=== PATIENT | female | born 1960 | race Caucasian/White ===

== ENCOUNTER → 2019-05-26 07:01 | Outpatient (CLI) | payer OTHER, SELFPAY ==
--- NOTE | ~2019-05-26 | MM_ITS ---
EXAMINATION: MM screening denice BI w karol HISTORY: Screening mammogram TECHNIQUE: Craniocaudal and mediolateral oblique 3-D tomosynthesis images were obtained and synthetic 2-D images were generated. CAD analysis was submitted and interpreted. COMPARISON: No prior mammogram is available for comparison at this institution. BREAST PARENCHYMAL COMPOSITION: The breasts are heterogeneously dense, which may obscure small masses . FINDINGS: Scattered benign calcifications. There is no evidence of suspicious mass, calcification, or architectural distortion to suggest malignancy in either breast. There has been no suspicious interv al change. IMPRESSION: 1. No mammographic evidence of malignancy. 2. Recommend routine screening mammography in one year. BI-RADS Category 2: Benign finding(s). Reviewed, dictated and finalized at location A. ASS OPERATOR
== END ==
PROVIDERS: PCP Physician Assistant; Visit Provider Physician Assistant
DX: Z12.31 Encounter for screening mammogram for malignant neoplasm of breast (principal)
CPT/HCPCS: 77063; 77067

== ENCOUNTER 2023-09-13 13:33 | Outpatient (CLI) | payer OTHER, SELFPAY ==
--- NOTE | ~2023-09-13 | MM_ITS ---
EXAMINATION: MM screening denice BI w karol HISTORY: Screening TECHNIQUE: Craniocaudal and mediolateral oblique 3-D tomosynthesis images were obtained and synthetic 2-D images were generated. CAD analysis was submitted and interpreted. COMPARISON: 05/26/2019 BREAST PARENCHYMAL COMPOSITION: Dense: The breasts are heterogeneously dense, which may obscure small masses FINDINGS: There is no evidence of suspicious mass, calcification, or architectural distortion to sugg est malignancy in either breast. There has been no suspicious interval change. IMPRESSION: 1. No mammographic evidence of malignancy. 2. Recommend routine screening mammography in one year. BI-RADS Category 1: Negative Reviewed, dictated and finalized at location B.
== END 2023-09-13 13:34 ==
LOC: MICIMG 13:37
PROVIDERS: PCP Physician Assistant; Visit Provider Physician Assistant
DX: Z12.31 Encounter for screening mammogram for malignant neoplasm of breast (principal)
CPT/HCPCS: 77063; 77067

== ENCOUNTER 2024-06-20 14:48 | Outpatient (CLI) | payer OTHER, SELFPAY ==
--- NOTE | ~2024-06-20 | MM_ITS ---
EXAMINATION: MM screening [facility] BI w karol HISTORY: Screening TECHNIQUE: Craniocaudal and mediolateral oblique 3-D tomosynthesis images were obtained and synthetic 2-D images were generated. CAD analysis was submitted and interpreted. COMPARISON: 09/13/2023 and 05/26/2019 BREAST PARENCHYMAL COMPOSITION: The breasts are heterogeneously dense, which may obscure small masses . FINDINGS: Punctate and bulky calcifications are detected bilaterally, stable and benign in appearance . Stable parenchymal pattern without suspicious microcalcifications, architectural distortion, discrete masses or significant asymmetry. IMPRESSION: 1. No mammographic evidence of malignancy. 2. Recommend routine screening mammography in one year. BI-RADS Category 2: Benign finding(s). Reviewed, dictated and finalized at location A.
--- OUTSIDE RECORDS SUMMARY | 2024-06-20 14:53 | XMS_ITS | Encounter Summary ---
Author Organization [facility] Healthcare Address [address] [place] [address] Care Team Providers Care Business Objects Consultant Name Role Phone Talia Ball Primary Care Provider [phone] Bree Ballesteros NP Unavailable [phone] Fiona Brandon MD Unavailable [phone] Reason for Visit * Reason Onset Date Comments Medical Question/Miscellaneous 06/12/2024 Encounter Details Date Type Department Care Team (Late st Contact Info) Description 06/12/2024 Telephone [facility] Family Medicine [address] [place] [address] Talia Ball PA [address] [place] [address] Medical Question/Miscellaneous Social History Tobacco Use Types Packs/Day Years Used Date Smoking Tobacco: Former Cigarettes 1 24.9 1 975 - 02/23/1999 Smokeless Tobacco: Never Alcohol Use Standard Drinks/Week Comments No 0 (1 standard drink = 0.6 oz pur e alcohol) AUDIT-C Answer Date Recorded Q1: How often do you have a drink containing alcohol? Never 06/16/2024 Q2: How many drinks containi ng alcohol do you have on a typical day when you are drinking? Patient does not drink Q3: How often do you have si x or more drinks on one occasion? Never 06/16/2024 PHQ-2 Answer Date Recorded PHQ-2 Total Score (If total score is 3 or more points, staff should administer the PHQ-9) 0 06/16/2024 PHQ-9 Answer Date Recorded PHQ-9 Total Score 8 09/26/2023 Personal Safety Answer Date Recorded Have you ever been in or are you currently in a harmful physical or emotional relationship or is someone making you feel afraid or unsafe? 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 AC was able to confirm, AC also informed the patient they can use any of our [facility] facilities to get those completed Does message need to be routed? No documented in this encounter Plan of Treatment Not on file documented as of this encounter Visit Diagnoses Not on filedocumented in this encounter Additional Health Concerns Infection Onset Date Last Indicated Resolved Time COVID: Recovered Comment:Added based on recent COVID infection. 03/17/2024 03/17/2024 06/15/2024 3:05 AM C DT documented as of this encounter Care Teams Business Objects Consultant Relationship Specialty Start Date End Date Talia Ball PA [address] [place] [address] PCP - General Internal Medicine 07/29/18 [place] [id number] [address] Nurse Practitioner Strawberry Grower 03/06/24 Fiona Brandon MD [address] [place] [id number] Referring Physician Interventional Cardiology 04/01/24 documented as of this encounter
--- OUTSIDE RECORDS SUMMARY | 2024-06-20 14:53 | XMS_ITS | Clinical Summary ---
Author Organization [facility] Address [address] [place] [address] [place] [address] Phone Care Team Providers Care User Experience Researcher Name Role Phone Katharine Mcnair MD Primary Care Provider [phone] Allergies Active Allergy Reactions Criticality Noted Date Comments Penicillins Hives 02/15/2015 Medications INSULIN GLARGINE,HUM.REC .ANLOG (LANTUS SUBCUT) Inject by subcutaneous injection. Active INSULIN LISPRO (HUMALOG SUBCUT) Inject by subcutaneous injection. Active CITALOPRAM HYDROBROMIDE (CELEXA ORAL) Take by mouth. A ctive METFORMIN HCL (METFORMIN ORAL) Take by mouth. Active LISINOPRIL ORAL Take by mouth. Active Active Problems No known active problems Social History Tobacco Use Types Packs/Day Years Used Date Smoking Tobacco: Former Alcohol Use Standard Drinks/Week Comments No 0 (1 standard drink = 0.6 oz pur e alcohol) Comments No Sex and Gender Information Value Date Recorded Sex Assigned at Not on file Legal Sex Female 4:58 AM MARKET DEVELOPMENT MANAGER Gender Identity Not on file Sexual Orientation Not on file Last Filed Vital Signs Vital Sign Reading Time Taken Comments Blood Pressure 133/79 02/15/2015 3:24 PM MARKET DEVELOPMENT MANAGER Pulse 100 02/15/2015 3:24 PM MARKET DEVELOPMENT MANAGER Temperature 36.5 C (97.7 F) 02/15/2015 3:24 PM MARKET DEVELOPMENT MANAGER Respiratory Rate 18 02/15/2015 3:24 PM MARKET DEVELOPMENT MANAGER Oxygen Saturation 97% 02/15/2015 3:24 PM MARKET DEVELOPMENT MANAGER Inhaled Oxygen Concentration - - Weight 99.8 kg (220 lb) 02/15/2015 3:24 PM MARKET DEVELOPMENT MANAGER Height 170.2 cm (5' 7 ) 02/15/2015 3:24 PM MARKET DEVELOPMENT MANAGER Body Mass Index 34.46 02/15/2015 3:24 PM MARKET DEVELOPMENT MANAGER Plan of Treatment Health Maintenance Due Date Last Done Comments DTAP/TDAP/TD VACCINES (1 - Tdap) 1980 HPV/Cotest (21-29) 1982 CERVICAL CANCER SCREENING 1991 HPV/Cotest (30-65) 1991 PAP SMEAR 1991 BREAST CANCER SCREENING 2001 COLORECTAL SCREENING 2006 Colorectal Cancer Screening 2006 FIT-DNA Q 3 years 2006 FIT/FOBT Q 1 year 2006 Flex Sig/CT Colonography Q 5 years 2006 ZOSTER VACCINE (1 of 2) 2011 INFLUENZA VACCINE (#1) 2023 RSV VACCINE (60+ or ) (1 - 1-dose 75+ series) 2036 Insurance INDIVIDUAL EXCHANGE [id number] Care Teams User Experience Researcher Relationship Specialty Start Date End Date Katharine Mcnair MD PCP - General Pediatrics 02/11/16
--- OUTSIDE RECORDS SUMMARY | 2024-06-20 14:53 | XMS_ITS | Data Portability ---
Author Organization [facility] Address [address] [place] [address] Assessment Encounter Date Assessment Date Assessment LastModified by Organization Details LastModified Time 09/05/2023 09/05/2023 labs preformed o n 08/21/2023, eGFR 72, sodium 144, potassium 4.6, chloride 109, CO2 24, anion gap 11, BUN 19, creatinine 0.90, glucose 237, calcium 9.9, bilirubin 0.3, protein 7.1, albumin 4.2, alk phos 57, ALT 17, AST 15, WBC 6.2, HGB 12.5, PLT 161 ECG done on 08/13/2023 shows normal sinus rhythm rate of 69 beats per minute, septal Q-waves, compared to an EKG done on 06/12/2022 there was no significant change. Assessment/Plan Preoperative cardiac evaluation prior to excision of three teeth on the left side of her jaw with sedation. Since it is going to be with sedation and no general anesthesia there is no cardiac contraindication to the procedure I just asked her to hold her Plavix 5 days prior to the procedure however every day that she is off of Plavix I told her she needs to take an aspirin 81 mg daily and then once she has back on the Plavix she can discontinue the aspirin. Coronary artery disease with chest pain and positive stress test prompting Cardiac catheterization and PCI of a 90% mid LAD lesion on 07/30/2020. Only other disease she has is a 50% mid to distal LAD stenosis. She has a left dominant coronary system with no other significant angiographic stenosis with repeat cardiac catheterization done on 06/13/2021 showing a widely patent stent and just to 40% lesion in the mid LAD with fit artery is fairly small and just mild plaque noted in the proximal portion of a moderate-sized 1st obtuse marginal branch, stable, asymptomatic. Hypertension - controlled Diastolic dysfunction grade 3 Pure hypercholesterolemia - on rosuvastatin 40 mg with LDL well within goal History of diabetes mellitus, managed by her primary care provider her PA Venuscarogloria Anxiety disorder/panic attacks History of alcoholism, Sober since March of 1984 Obstructive sleep apnea - difficulty with tolerating the CPAP, managed by Dr. Lozada Plan-I recommend healthy diet/diabetic which low in fat, low in cholesterol low in sodium and she is to follow a diabetic diet. She has no cardiac contraindication to the extraction of her teeth with sedation should just hold her Plavix 5 days prior to the procedure and every day she is off Plavix she will take 81 mg of aspirin and when she is back on Plavix she can discontinue the aspirin. I asked her to try to hemoglobin A1c under 7 and I agree with seeing an desulfurizer hand to try to help achieve that goal. I would like her to stay as active as possible try to exercise regularly and try to lose some weight. I recommend she continue Plavix 75 mg daily, lisinopril 20 mg daily, magnesium oxide 800 mg daily, rosuvastatin 40 mg daily, and nitroglycerin 0.4 mg sublingual p.r.n. which she has not required. She did have CBC and a complete metabolic profile late last month so I just order a fasting lipid profile if it looks to be at goal then we will continue her current medical regimen and have her return in 6 months time and obtain a fasting lipid profile, complete metabolic profile and CBC prior to her follow-up visit. I asked her to return sooner if she has any cardiac issues or problems. CARDIAC TESTING: ECHOCARDIOGRAM She did undergo an echocardiogram done on 06/13/2021 which showed normal left ventricular systolic function with ejection fraction of 60-65% with the RV cavity size and function being normal with normal right heart pressures and diastolic dysfunction grade 3. ECHOCARDIOGRAM 07/30/2020 which showed normal left ventricular systolic function with an ejection fraction of 60 65% with normal global longitudinal strain of -22.6 and diastolic dysfunction grade 1 with no significant valvular disease. MYOVIEW STRESS TEST 01/24/21. Positive electrocardiographic portion of a treadmill Myoview stress test with 1 to 1.[address]-segment depressions, which normalized within 2 minutes into recovery (this is much improved since her last stress test before she was revascularized on 07/30/2020 where she had 2 to 2.[address]-segment depressions which persisted for a long period of time in the recovery phase).Adequate exercise tolerance, walking a total of 9 minutes 15 seconds on standard N[place]um protocol, achieving 10.9 METS of exercise and a maximal heart rate of 146 beats per minute which is 90% of her age-predicted maximal heart rate with reason for termination of stress test was some shortness of breath.No arrhythmias. Normal blood pressure with appropriate blood pressure response to exercise.Normal chronotropic response to exercise.She had no chest pain, chest pressure, or jaw pain.Normal rest and exercise myocardial perfusion images.Normal left ventricular size and systolic function. TREADMILL MYOVIEW STRESS TEST 07/30/2020 after she ruled out for myocardial infarction. She underwent a treadmill Myoview stress test on 07/30/2020 which was strongly positive electrocardiographic portion of the stress test with 2-2.[address] segment depressions with some acute peaked T-waves noted in the recovery phase suspicious for ischemia with prolonged persistence of ST segments in the recovery phase lasting out more than 8 minutes. She did not have chest pain or chest pressure but she did have nausea. Reason for termination of stress test was dyspnea and nausea walking 6 minutes 30 seconds in standard Nahum protocol achieving 7.7 Mets of exercise. She had normal blood pressure with appropriate blood pressure month exercise, normal chronotropic response exercise with Myoview images showing subtle reversible 5% mild severity inferior apical defect possibly small area of ischemia., no other fixed or reversible perfusion defects, normal left ventricular ejection fraction wall motion with an ejection fraction of 71%. CARDIAC CATHETERIZATION 06/13/2021 which showed a widely patent stent in the proximal LAD with approximately 20% proximal stenosis to the stent and 10-20% stenosis distal to the stent as well as a 40% stenosis in the distal LAD with the artery was fairly tortuous and small otherwise just to 20% plaque noted in the ostium of the proximal portion moderate-sized 1st obtuse marginal branch the other arteries were angiographically normal. Left dominant system. Elevated left ventricular end-diastolic pressure of 13 mm of mercury with normal systemic arterial blood pressure with aortic pressure 139/62 mm mercury. Normal left ventricular cavity size, wall motion ejection fraction of 60%. CARDIAC CATHETERIZATION/PCI 07/30/2020 which showed severe single-vessel coronary artery disease involving the mid LAD with 90% stenosis and then a 50% stenosis in the distal LAD. Left dominant coronary system with left circumflex artery being without significant angiographic stenosis. Non dominant right coronary artery although it did go off a small PDA which was angiographically normal. Normal left ventricular cavity size, wall motion estimated left ventricular systolic ejection fraction of 60-65%. No mitral regurgitation seen on left ventricular cineangiogram, 1 mm gradient upon pullback us aortic valve not of any clinical significance, upper limits of normal left ventricular end-diastolic pressure 12 mm mercury normal systemic arterial blood pressure with aortic pressure 136/63 mm of mercury. She undergo petra guided PCI to the LAD with a 2.75 x 30 mm resolute doyle drug-eluting stent post dilated proximally with a 3.5 noncompliant balloon reducing the stenosis down to 0% residual stenosis by Dr. Eastman. Not available 09/05/2023 18:27:13 03/13/2024 03/13/2024 LABS: 02/18/24. Sodium 139, potassium 4.5, chloride 105, CO2 23, BUN 21, creatinine 0.54, bilirubin 0.4, glucose 150, calcium 9.8, protein 7.3, albumin> 4.5, EGFR >90 alkaline phosphate 56, ALT 19, AST 21, cholesterol 144, triglycerides 133, HDL 46, LDL 75, WBC 6.1, hemoglobin 12.7, hematocrit 40.6, platelet count 177. labs preformed on 08/21/2023, eGFR 72, sodium 144, potassium 4.6, chloride 109, CO2 24, anion gap 11, BUN 19, creatinine 0.90, glucose 237, calcium 9.9, bilirubin 0.3, protein 7.1, albumin 4.2, alk phos 57, ALT 17, AST 15, WBC 6.2, HGB 12.5, PLT 161 ECG done on 03/13/2024 shows sinus rhythm with a rate of 73 beats per minute, septal Q-wave/septal infarction, compared to the previous EKG done 08/13/2023, there was no significant change Assessment/Plan Preoperative cardiac evaluation prior to neck surgery at [facility] on 04/07/2024 , she had a cardiac catheterization 2 years ago and had patent stent in her LAD and just 40% lesion in the mid LAD and disease left circumflex system. She is not having any chest pain or any shortness of breath. Her ECG is stable. I told her to hold her Plavix 5 days prior to the procedure but for every day she is off Plavix I told her to take aspirin 81 mg daily and then after the procedure she can go back on her Plavix and discontinue the aspirin Coronary artery disease with chest pain and positive stress test prompting Cardiac catheterization and PCI of a 90% mid LAD lesion on 07/30/2020. Only other disease was a 50% mid to distal LAD stenosis. She has a left dominant coronary system with no other significant angiographic stenosis with repeat cardiac catheterization done on 06/13/2021 showing a widely patent stent and just to 40% lesion in the mid LAD with fit artery is fairly small and just mild plaque noted in the proximal portion of a moderate-sized 1st obtuse marginal branch, stable, asymptomatic. Hypertension - controlled Diastolic dysfunction grade 3 Pure hypercholesterolemia - on rosuvastatin 40 mg with LDL slightly above ideal goal was well within goal previously on the same dose I just asked her to watch her diet more closely. History of diabetes mellitus, managed by her primary care provider her JEFF Ball Anxiety disorder/panic attacks History of alcoholism, Sober since March of 1984 Obstructive sleep apnea - unable to tolerate the CPAP, managed by Dr. Lozada Plan-I recommend healthy diet/diabetic which low in fat, low in cholesterol low in sodium and she is to follow a diabetic diet. She has no cardiac contraindication to her neck surgery . I just asked her to hold her Plavix 5 days prior to the procedure and every day she is off Plavix she will take 81 mg of aspirin and when she is back on Plavix she can discontinue the aspirin. I asked her to continue to keep her hemoglobin A1c under 7. Otherwise, I asked her to continue the Plavix 75 mg daily, lisinopril 20 mg daily, magnesium oxide 800 mg daily, rosuvastatin 40 mg daily, and nitroglycerin 0.4 mg sublingual p.r.n. which she has not required. I asked her to return in 6 months time and obtain a fasting lipid profile, complete metabolic profile and CBC prior to her follow-up visit. I asked her to return sooner if she has any cardiac issues or problems. CARDIAC TESTING: ECHOCARDIOGRAM She did undergo an echocardiogram done on 06/13/2021 which showed normal left ventricular systolic function with ejection fraction of 60-65% with the RV cavity size and function being normal with normal right heart pressures and diastolic dysfunction grade 3. ECHOCARDIOGRAM 07/30/2020 which showed normal left ventricular systolic function with an ejection fraction of 60 65% with normal global longitudinal strain of -22.6 and diastolic dysfunction grade 1 with no significant valvular disease. MYOVIEW STRESS TEST 01/24/21. Positive electrocardiographic portion of a treadmill Myoview stress test with 1 to 1.[address]-segment depressions, which normalized within 2 minutes into recovery (this is much improved since her last stress test before she was revascularized on 07/30/2020 where she had 2 to 2.[address]-segment depressions which persisted for a long period of time in the recovery phase).Adequate exercise tolerance, walking a total of 9 minutes 15 seconds on standard Nahum protocol, achieving 10.9 METS of exercise and a maximal heart rate of 146 beats per minute which is 90% of her age-predicted maximal heart rate with reason for termination of stress test was some shortness of breath.No arrhythmias. Normal blood pressure with appropriate blood pressure response to exercise.Normal chronotropic response to exercise.She had no chest pain, chest pressure, or jaw pain.Normal rest and exercise myocardial perfusion images.Normal left ventricular size and systolic function. TREADMILL MYOVIEW STRESS TEST 07/30/2020 after she ruled out for myocardial infarction. She underwent a treadmill Myoview stress test on 07/30/2020 which was strongly positive electrocardiographic portion of the stress test with 2-2.[address] segment depressions with some acute peaked T-waves noted in the recovery phase suspicious for ischemia with prolonged persistence of ST segments in the recovery phase lasting out more than 8 minutes. She did not have chest pain or chest pressure but she did have nausea. Reason for termination of stress test was dyspnea and nausea walking 6 minutes 30 seconds in standard Nahum protocol achieving 7.7 Mets of exercise. She had normal blood pressure with appropriate blood pressure month exercise, normal chronotropic response exercise with Myoview images showing subtle reversible 5% mild severity inferior apical defect possibly small area of ischemia., no other fixed or reversible perfusion defects, normal left ventricular ejection fraction wall motion with an ejection fraction of 71%. CARDIAC CATHETERIZATION 06/13/2021 which showed a widely patent stent in the proximal LAD with approximately 20% proximal stenosis to the stent and 10-20% stenosis distal to the stent as well as a 40% stenosis in the distal LAD with the artery was fairly tortuous and small otherwise just to 20% plaque noted in the ostium of the proximal portion moderate-sized 1st obtuse marginal branch the other arteries were angiographically normal. Left dominant system. Elevated left ventricular end-diastolic pressure of 13 mm of mercury with normal systemic arterial blood pressure with aortic pressure 139/62 mm mercury. Normal left ventricular cavity size, wall motion ejection fraction of 60%. CARDIAC CATHETERIZATION/PCI 07/30/2020 which showed severe single-vessel coronary artery disease involving the mid LAD with 90% stenosis and then a 50% stenosis in the distal LAD. Left dominant coronary system with left circumflex artery being without significant angiographic stenosis. Non dominant right coronary artery although it did go off a small PDA which was angiographically normal. Normal left ventricular cavity size, wall motion estimated left ventricular systolic ejection fraction of 60-65%. No mitral regurgitation seen on left ventricular cineangiogram, 1 mm gradient upon pullback us aortic valve not of any clinical significance, upper limits of normal left ventricular end-diastolic pressure 12 mm mercury normal systemic arterial blood pressure with aortic pressure 136/63 mm of mercury. She undergo petra guided PCI to the LAD with a 2.75 x 30 mm resolute doyle drug-eluting stent post dilated proximally with a 3.5 noncompliant balloon reducing the stenosis down to 0% residual stenosis by Dr. Eastman. Not available 03/13/2024 17:15:56 Plan of Treatment Reminders Order Date Submit Date Provider Last Modified By Organization Details Last Modified Time Details Appointments ANY 15 2024 02:15P Jacquie Brandon MD Not available Not available Not available Lab lipid panel, serum 2023 025 [email or web address] [facility], [facility], [place], [address], 03/13/2024 17:01:16 CMP, serum or plasma 2023 025 [email or web address] [facility], [address], [place], [address], 03/13/2024 17:01:16 CBC 2023 025 [email or web address] [facility], [address], [place], [address], 03/13/2024 17:01:16 lipid panel, serum 2023 024 [facility], [address], [place], [address], 03/10/2024 07:48:29 lipid panel, serum 2023 024 [facility], [address], [place], [address], 10/01/2023 09:40:29 CMP, serum or plasma 2023 024 [facility], [address], [place], [address], 03/10/2024 07:48:29 CBC 2023 024 [facility], [address], [place], [address], 03/10/2024 07:48:29 Referral None record ed. Procedures None record ed. Surgeries None record ed. Imaging electr ocardi ogram 2023 024 [email or web address] In-Office Order, Internal Use Only DO Not Attach Compendium DO Not Attach Compendium, Do Not Delete/merge, [id number] 03/17/2024 11:17:35 Medication Orders nitrog lyceri n 0.4 mg sublin gual tablet 2023 024 JOSE R Christine [facility] [address], [address], [place], [address], 03/13/2024 17:01:24 Patient TargetsNo targets recorded. Patient Instructions Encounter Date Encounter Id Patient Instructions Last Modified By Organization Details Last Modified Time 03/13/2024 [id number] A healthy lifestyle: care instructions Not available 03/13/2024 17:01:16 Reason for Referral None Reported. Results Created Date Observation Date Name Description Value Unit Range Abnormal Flag Note LastModifiedBy Organization Detail LastModifiedTime 03/13/20 24 03/13/2024 elect rocar diogr am No observ ation record ed. JOSE R In-Office Order Internal Use Only DO Not Attach Compendium DO Not Attach Compendium, Do Not Delete/merge, [id number] 03/13/2024 17:24:39 03/13/20 elect rocar diogr am No observ ation record ed. [email or web address] Not Available 03/13 17:24:40 03/20/20 24 03/13/2024 elect rocar diogr am No observ ation record ed. BARCODE In-Office Order Internal Use Only DO Not Attach Compendium DO Not Attach Compendium, Do Not Delete/merge, [id number] 03/20/2024 16:41:29 Result Notes None recorded. Problems Name Problem SNOMED Code Status Onset Date Resolution Date Notes Provider Name and Address Organization Details Recorded Time Atheroscler osis of coronary artery without angina pectoris 0383772487062 03 Active 2023 Fiona Brandon MD Attn: Essence stephenson,[address] [facility], [place], [address], [place] - [facility] 4 18:24:10 Essential hypertensio n 74114417 Active 2023 Fiona Brandon MD Attn: Essence stephenson,[address] [facility], [place], [address], [place] - [facility] 4 18:24:11 Diastolic dysfunction 4570646 Active 2023 Fiona Brandon MD Attn: Essence stephenson,[address] [facility], [place], [address], [place] - [facility] 4 18:24:13 Pure hypercholes terolemia 663839039 Active 2023 Fiona Brandon MD Attn: Essnece stephenson,[address] [facility], [place], [address], [place] - [facility] 4 18:24:14 Preoperativ e cardiovascu lar examination Active 2023 Fiona Brandon MD Attn: Essence stephenson,[address], [place], [address], [place] - [facility] 4 18:24:15 Long-term current use of antiplatele t drug 6126965000773 01 Active 2023 Fiona Brandon MD Attn: Essence stephenson,[address], [place], [address], [place] [facility] 18:24:25 Coronary arterioscle rosis in [place] artery 8283380148724 Active 2023 Fiona Brandon MD Attn: Essence stephenson,[address] [facility], [place], [address], [place] - [facility] 4 17:00:57 Obesity 051386477 Active 2023 Fiona Brandon MD Attn: Essence stephenson,[address] [facility], [place], [address], [place] - [facility] 4 17:00:59 Problem Notes None recorded. Procedures Surgical History None recorded. Imaging Results Imaging Date Name Status LastModified by Organization Details LastModified Time 03/13/2024 electrocardiogram completed JOSE R In-Offi ce Order Internal Use Only DO Not Attach Compendium DO Not Attach Compendium, Do Not Delete/merge, [id number] 03/13/2024 17:24:39 03/13/2024 electrocardiogram completed [email or web address] Informa tion not available 03/13/2024 17:24:40 03/13/2024 electrocardiogram completed BARCODE In-Offi ce Order Internal Use Only DO Not Attach Compendium DO Not Attach Compendium, Do Not Delete/merge, [id number] 03/20/2024 16:41:29 Procedure Notes None recorded. Medical Equipment None Reported. Allergies Allergen ID Allergen Name Allergen Category Reaction Reaction Severity Criticality Documentation Date Start Date Code Code System Note Provider Name and Address Organization Details Recorded Time 762417 Product containin g penicilli n (product) medicatio n hives Not available Not available 09/05/2023 [id number] SNOMED Not Available Not Available Not Available Medications Name Sig Start Date Stop Date Status Note LastModified by Organization Details LastModified Time metformin 500 mg tablet TAKE 2 TABLETS BY MOUTH ONCE DAILY WITH BREAKFAST active Not Available Not Available No t Available ivermectin 3 mg tablet TAKE 7 TABLETS BY MOUTH TODAY, REPEAT IN 1 WEEK 03/13 completed Not Available Not Available Not Available prednisone 10 mg tablet TAKE 4 TABLETS BY MOUTH ONCE DAILY FOR 2 DAYS, 3 ONCE DAILY FOR 2 DAYS, 2 ONCE DAILY FOR 2 DAYS, 1 ONCE DAILY FOR 4 DAYS 09/04 completed Not Available Not Available Not Available clindamycin HCl 300 mg capsule TAKE 1 CAPSULE BY MOUTH 4 TIMES DAILY FOR 7 DAYS 09/04 completed Not Available Not Available Not Available triazolam 0.25 mg tablet TAKE 1 TABLET BY MOUTH 1 HOUR PRIOR TO APPOINTME NT AND BRING OTHER TO THE APPOINTME NT 03/13 completed Not Available Not Available Not Available azithromyci n 250 mg tablet TAKE DIRECTED 03/13 completed Not Available Not Available Not Available lisinopril 20 mg tablet TAKE 1 TABLET BY MOUTH ONCE DAILY active Not Available Not Available No t Available sertraline 100 mg tablet TAKE 1 TABLET BY MOUTH ONCE DAILY active Not Available Not Available No t Available permethrin 5 % topical cream APPLY TOPICALLY ONCE FOR ONE DOSE 03/13 completed Not Available Not Available Not Available acetaminoph en 300 mg-codeine 30 mg tablet TAKE 1 TABLET BY MOUTH EVERY 6 HOURS NEEDED FOR PAIN RARELY active Not Available Not Available No t Available clopidogrel 75 mg tablet Take 1 tablet daily 2024 active Not Available Not Available Not Avai lable pantoprazol e 40 mg tablet,renuka yed release Take 1 tablet daily 2024 active Not Available Not Available Not Avai lable nitroglycer in 0.[address] 1 tablet by sublingua l route as needed, for CHEST PAIN DO NOT EXCEED A TOTAL OF 3 DOSES IN 15 MINUTES. 2023 active Not Available Not Available Not Avai lable ammonium lactate 12 % topical cream APPLY CREAM TOPICALLY TO AFFECTED AREA TWICE DAILY 09/04 completed Not Available Not Available Not Available methylpredn isolone 4 mg tablets in a dose pack TAKE BY MOUTH DIRECTED ON INSIDE OF PACKAGE 03/13 completed Not Available Not Available Not Available clobetasol 0.05 % scalp solution APPLY SOLUTION TOPICALLY TWICE DAILY NEEDED (APPLY THIN LAYER TO SCALP) 03/13 completed Not Available Not Available Not Available insulin lispro (U-100) 100 unit/mL subcutaneou s pen INJECT 1-4 TIMES SUBCUTANE OSULY PER DAY DIRECTED WITH MEALS, CARB COUNTING AND USING 15-20 UNITS WITH EACH MEAL active Not Available Not Available No t Available cyclobenzap rine 5 mg tablet TAKE 1 TABLET BY MOUTH THREE TIMES DAILY NEEDED FOR MUSCLE SPASM active Not Available Not Available No t Available rosuvastati n 40 mg tablet TAKE 1 TABLET BY MOUTH ONCE DAILY active Not Available Not Available No t Available chlorhexidi ne gluconate 0.12 % mouthwash SWISH AND SPIT 15 ML (1/2 OZ) BY MOUTH TWICE DAILY NEEDED 03/13 completed Not Available Not Available Not Available magnesium 800 mg daily active Not Available Not Available No t Available Levemir FlexPen 100 unit/mL (3 mL) solution subcutaneou s insulin pen INJECT 20 UNITS SUBCUTANE OUSLY NIGHTLY 03/13 completed Not Available Not Available Not Available D3-2000 1 tablet daily active Not Available Not Available No t Available Tresiba FlexTouch U-200 insulin 200 unit/mL (3 mL) subcutaneou s pen INJECT 0.1 ML (20 UNITS TOTAL) UNDER THE SKIN ONCE DAILY active Not Available Not Available No t Available Rybelsus 7 mg tablet TAKE 1 TABLET BY MOUTH IN THE MORNING BEFORE BREAKFAST . DISCONTIN UE OZEMPIC 09/04 completed Not Available Not Available Not Available FreeStyle Anil 2 Sensor kit USE DIRECTED CHANGE EVERY 14 DAYS active Not Available Not Available No t Available Ozempic 1 mg/dose (4 mg/3 mL) subcutaneou s pen injector INJECT 1 MG UNDER THE SKIN EVERY 7 DAYS 09/04 completed Not Available Not Available Not Available insulin glargine-yf gn (U-100) 100 unit/mL (3 mL) subcutaneou s pen INJECT 20 UNITS SUBCUTANE OUSLY IN THE MORNING BEFORE BREAKFAST 09/04 completed Not Available Not Available Not Available Mounjaro 5 mg/0.5 mL subcutaneou s pen injector INJECT 5MG UNDER THE SKIN EVERY 7 DAYS active Not Available Not Available No t Available Mounjaro 2.5 mg/0.5 mL subcutaneou s pen injector INJECT 0.5 ML UNDER THE SKIN EVERY 7 DAYS 03/13 completed Not Available Not Available Not Available Dexcom G7 Sensor device USE 1 SENSOR CONTINUOU SLY AND CHANGE EVERY 10 DAYS active Not Available Not Available No t Available Ozempic 0.25 mg or 0.5 mg (2 mg/3 mL) subcutaneou s pen injector INJECT 0.5MG UNDER THE SKIN EVERY 7 DAYS 03/13 completed Not Available Not Available Not Available Vitals Date Recorded Body height Body mass index (BMI) Body weight Heart rate Oxygen saturation Oxygen saturation in Arterial blood by Pulse oximetry Systolic blood pressure Diastolic blood pressure Provider Name and Address Organization Details Last Updated DateTime 4 170.18 cm 2.1 kg/m2 6214.22 g 76 /min 98 % 98 % 118 mm[Hg] 72 mm[Hg] Heidy Hammond MA [facility] 4 17:43:06 Date Recorded Body height Body mass index (BMI) Body weight Heart rate Oxygen saturation Oxygen saturation in Arterial blood by Pulse oximetry Systolic blood pressure Diastolic blood pressure Provider Name and Address Organization Details Last Updated DateTime 4 170.18 cm 31.5 kg/m2 56935.0 7 g 72 /min 98 % 98 % 118 mm[Hg] 62 mm[Hg] Sharath Macias MA [facility] 4 16:33:31 Social History Question Answer Notes LastModified by Organizat ion Details LastModified Time Tobacco Smoking Status Former Smoker Heidy Hammond MA null, [facility] 09/05/2023 17:40:18 What Is Your Level Of Alcohol Consumption? None Information not available 09/05/2023 What Is Your Level Of Caffeine Consumption? None Information not available 09/05/2023 What Was The Date Of Your Most Recent Tobacco Screening? 03/13/2024 [email or web address] Information not available 03/13/2024 What Is Your Current Pack Years? 10packyears Information not available 09/05/2023 At What Age Did You Start Smoking Tobacco? 15 Information not available 09/05/2023 How Much Tobacco Do You Smoke? No Information not available 09/05/2023 Do You Use Any Illicit Or Recreational Drugs? No Information not available 09/05/2023 Has Tobacco Cessation Counseling Been Provided? No Information not available 09/05/2023 How Many Years Have You Smoked Tobacco? 15 Information not available 09/05/2023 Do You Or Have You Ever Used Any Other Forms Of Tobacco Or Nicotine? No Information not available 09/05/2023 Sex: Unknown Functional Status None recorded. Mental Status None recorded. Family History Nothing Reported. Medical History No medical history recorded. Gynecological HistoryNo gynecological history recorded. Obstetrics History GPAL:G 0 P 0 0 0 0 Past Encounters Encounter ID Performer Location Encounter Start Date Encounter Closed Date Diagnosis/Indication Diagnosis SNOMED-CT Code Diagnosis ICD10 Code Diagnosis Note [id number] Fiona Brandon MD [facility] [place] [facility] [address] [place] [address] 09/05/2023 16:49:09 09/06/2023 16:28:42 Atherosclerosis of coronary artery without angina pectoris 3297617414 91953 I25.10 Essential hypertension 50881069 I10 Diastolic dysfunction 35 89646 I51.9 Pure hypercholesterolemia 621190268 E78.00 Preoperati ve cardiovascular examination 806048781 Z01.810 Long-term current use of antiplatelet drug 2077042266 44207 Z79.02 [id number] Fiona Brandon MD [facility] [place] [facility] [address] [place] [address] 03/13/2024 16:18:00 03/17/2024 11:17:34 Coronary arteriosclerosis in [place] artery 2153177171 107 I25.10 Pure hypercholesterolemia 099523836 E78.00 Obesity 928796317 E66.9 Diastolic dysfunction 35 69058 I51.9 Essential hypertension 97864217 I10 Long-term current use of antiplatelet drug 3712653445 79220 Z79.02 Preoperati ve cardiovascular examination 737531719 Z01.810 Health Concerns Section Related Observation LastModified by Organization Detai ls LastModified Time None Recorded Concern Status LastModified by Organization Details LastModified Time None Recorded Advance Directives Directive None Recorded Payers Encounter Date Sequence Insurance Name Policy Number Policy Fregoso Covered Member ID Fregoso Member ID Guarantor Name 09/05/2023 1 [facility] [id number] Niki Moreno [id number] 1 [id number] Niki Moreno 03/13/2024 1 [facility] [id number] Niki Moreno [id number] Niki Moreno Notes Date Note Type Note Provider Name and Address Organization Details Recorded Time 09/05/2023 text/html Ms. Moreno is a 63-year-old female who returns for follow-up visit. She tells me she had an abscess in her teeth and tooth which broke and some extractions of teeth. In the hospital for observation given some fluids due to dehydration. She is not doing regular exercise. She has not has not had any recurrence of chest pain but has had some jaw pain but it is related to infection left side of her mouth with her infected teeth. She is now back on semaglutide but has not had any further lightheaded spells. She admits her diet is hit and miss and glucose levels are high and is being referred to an desulfurizer hand. She denies any significant bleeding on Plavix. She denies any shortness of breath, paroxysmal nocturnal dyspnea, orthopnea, dizziness, syncope, palpitations or pedal edema Fiona Brandon MD Attn: [address] [place], [address], [place] [facility] 09/05/2023 18:27:39 03/13/2024 text/html Ms. Moreno is a 63-year-old female who returns for follow-up visit. She had 3 teeth excise which were without complications. She tells me she is in need of some neck surgery at [facility]. She is not doing regular exercise but denies any chest pain or shortness of breath and her jaw pain has resolved after her dental extractions. She is on Mounjaro for diabetes and weight loss. She believes her weight is down about 13 lb since she was last here about 6 months ago. Her hemoglobin A1c is now down to 7.0 and she follows with an desulfurizer hand. She is following a low carb diet. She denies any significant bleeding on Plavix. She denies any shortness of breath, paroxysmal nocturnal dyspnea, orthopnea, dizziness, syncope, palpitations or pedal edema Fiona Brandon MD Attn: [address] [facility], [place], [address], [facility] 03/13/2024 17:16:08 OBGyn Episode No OBEpisode recorded.
--- OUTSIDE RECORDS SUMMARY | 2024-06-20 14:53 | XMS_ITS ---
Author Organization [facility] [email or web address] Address [facility] [address] [facility] [address] [place] [address] Care Team Providers Care Truss Maker Name Role Phone Bree Merino Unavailable [phone] Migration, Provider Unavailable Unavailable REASON FOR VISIT EMR-Mark Social History Sex Assigned At : Social History Observation Description Sex Assigned At Female Encounters Encounter Location Date Provider Diagnosis [facility] [employer] [place] [id number] [facility] [address] [address] 08/11/2023 Provider Migration Plan Of Treatment Next Appt Details Provider Name:Bree Merino , 06/23/2024 04:15:00 PM, [address], [place] [address], [place], [address], Progress Notes * DEBORAH DURANOB:1960 (63 yo F)Acc No.[id number]:08/11/2023 Patient: SABRINA CORTES :1960 A ge:63 Y S ex:Female Address:[address] [place] [address], [address] Subjective: * Chief Complaints: * E MR-Mark * Medical History: * Surgical History: * Hospitalization/Major Diagno stic Procedure: * Medications: Objective: * Vitals: * Physical Examination: Assessment: Plan: * Treatment: * Procedure Codes: * true * Date: Generated for Printi ng/Faxing/eTransmitting on: 0 06/20/2024 02:52 PM CDT
--- OUTSIDE RECORDS SUMMARY | 2024-06-20 14:53 | XMS_ITS | Encounter Summary ---
Author Organization [facility] Healthcare Address [address] [place] [address] Care Team Providers Care Group Sales Representative Name Role Phone Talia Ball Primary Care Provider [phone] Bree Ballesteros NP Unavailable [phone] Fiona Brandon MD Unavailable [phone] Encounter Details Date Type Department Care Team (Late st Contact Info) Description 06/12/2024 Results Follow-Up [facility] Medical Group Family Medicine [address] [place] [address] Talia Ball PA [address] [address] [place] [address] Social History Tobacco Use Types Packs/Day Years [...] on file 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 03/17/2024 03/17/2024 06/15/2024 3:05 AM C DT documented as of this encounter Care Teams Group Sales Representative Relationship Specialty Start Date End Date Talia Ball PA [address] [place] [address] PCP - General Internal Medicine 07/29/18 [place] [address] [facility] [place] [address] [place] [address] Nurse Practitioner Blacking Machine Operator 03/06/24 Fiona Brandon MD [address] [place] [address] 3 [place] [address] Referring Physician Interventional Cardiology 04/01/24 documented as of this encounter
--- OUTSIDE RECORDS SUMMARY | 2024-06-20 14:53 | XMS_ITS | Encounter Summary ---
Author Organization [facility] Address [address] [facility] [address] [place] [address] Phone Care Team Providers Care Technical Account Manager Name Role Phone Talia Ball Primary Care Provider [phone] Bree Ballesteros FUEL MANAGEMENT HANDLER Unavailable [phone] Fiona Brandon MD Unavailable [phone] Reason for Visit * Consultation (Routine) - Closed Specialty Diagnoses / Procedures Referred By Contac t Referred To Contact Neurosurgery Diagnoses Cervical disc disorder with myelopathy of mid-cervical region Narrowing of lumbar spine Nolan Butler MD PhD [address] [place] [address] Phone: tel: fax: Nolan Butler MD PhD [address] [place] [address] Phone: tel: fax: Referral ID Status Reason Start Date Expiration Date V isits Requested Visits Authorized [id number] Closed Specialty Services Required 06/10/2024 07/10/2025 1 1 Encounter Details Date Type Department Care Team (Late st Contact Info) Description 06/19/2024 12:15 PM CDT Office Visit [facility] Neurosurgery [address] [facility] [address] [place] [address] Nolan Butler MD PhD [address] [place] [address] Cervical disc disorder with myelopathy of mid-cervical region; Narrowing of lumbar spine Social History Tobacco Use Types Packs/Day Years Used Date Smoking Tobacco: Former Cigarettes 1 24.9 1 975 - 02/23/1999 Smokeless Tobacco: Never Alcohol Use Standard Drinks/Week Comments No 0 (1 standard drink = 0.6 oz pur e alcohol) AUDIT-C Answer Date Recorded Q1: How often do you have a drink containing alcohol? Never 06/19/2024 Q2: How many drinks containi ng alcohol do you have on a typical day when you are drinking? Patient does not drink Q3: How often do you have si x or more drinks on one occasion? 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 Not on file Not on file Not on file documented as of this encounter Last Filed Vital Signs Vital Sign Reading Time Taken Comments Blood Pressure - - Pulse - - Temperature - - Respiratory Rate - - Oxygen Saturation - - Inhaled Oxygen Concentration - - Weight 91.5 kg (201 lb 12.8 oz) 025 12:05 PM CDT Height 170.2 cm (5' 7 ) 06/19/2024 12:0 5 PM CDT Body Mass Index 31.61 06/19/2024 12:05 PM CDT documented in this encounter Functional Status * Audit-C Score Answer Date of Assessment Author 0 06/19/2024 12:06 PM CDT Laina Cavazos CMA * Question Answer Date of Assessment Author Q1: How often do you have a drink containing alcohol? Never 06/19/2024 12:06 PM MEIRT Laina Cavazos CMA Q2: How many drinks containing alcohol do you have on a typical day when you are drinking? Patient does not drink 06/19/2024 12:06 PM CDT Laina Cavazos CMA Q3: How often do you have six or more drinks on one occasion? Never 06/19/2024 12:06 PM MEIRT Laina Cavazos CMA documented as of this encounter Progress Notes * Makeda Rosas, FUEL MANAGEMENT HANDLER - 06/19/2024 12:15 PM CDT RETURN VISIT Subjective HISTORY OF PRESENT ILLNESS Niki Moreno is a pleasant 64 y.o. 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 She underwent a C4 through 7 anterior cervical diskectomy and fusion on April 07, [address] Butler. The patient was last seen on May 22, 2024 where her right-sided symptoms had improved. She is cleared to wean out of her Fountain J collar. The patient presents for follow-up. Today, the patient states that she continues to do well. Her right hand continues to show improvement. She is no longer having issues in her 3rd digit.Niki Moreno rates her pain at a 2 to 3/10 today. She has weaned off of her oxycodone. She continues to deny any left-sided symptoms or recent falls. Her balance continues to show improvement. The patient is using her bone growth stimulator. She had no difficulties weaning out of her brace. Niki Moreno is participating in physical therapy. VITAL SIGNS Ht 170.2 cm (5' 7 ) Wt 91.5 kg (201 lb 12.8 oz) BMI 31.61 kg/m?? ALLERGIES She is allergic to amoxicillin, cephalexin, erythromycin, and penicillins. MEDICATIONS Current Outpatient Medications: cholecalciferol (D3-2000) 2000 unit capsule, Take 1 capsule (2,000 Units total) by mouth nightly, Disp: , Rfl: clopidogreL (PLAVIX) 75 mg tablet, Take 1 tablet (75 mg total) by mouth daily DO NOT RESUME TAKING UNTIL 04/22/24., Disp: 90 tablet, Rfl: 2 Dexcom G7 Sensor device, 1 Device continuously . Change every 10 days. , Disp: 10 each, Rfl: 3 insulin lispro (HumaLOG, ADMELOG) 100 unit/mL pen for injection, Inject under the skin 4 (four) times a day as needed, Disp: , Rfl: magnesium oxide (MAG-OX) 400 mg (241.3 mg elemental magnesium) tablet, Take 1 tablet (400 mg total)by mouth daily, Disp: 90 tablet, Rfl: 1 melatonin 5 mg tablet, sublingual, Place 10 mg under the tongue nightly as needed, Disp: , Rfl: nitroglycerin (NITROSTAT) 0.4 mg SL tablet, Place 1 tablet (0.4 mg total) under the tongue every 5 (five) minutes as needed for chest pain, Disp: 25 tablet, Rfl: [address] (PROTONIX) 40 mg EC tablet, Take 1 tablet (40 mg total) by mouth daily, Disp: 90 tablet, Rfl: 2 rosuvastatin (CRESTOR) 40 mg tablet, Take 1 tablet (40 mg total) by mouth daily, Disp: 90 tablet, Rfl: 2 sertraline (ZOLOFT) 100 mg tablet, Take 1 tablet (100 mg total) by mouth daily (Patient taking differently: Take 0.5 tablets (50 mg total) by mouth daily), Disp: 90 tablet, Rfl: 2 tirzepatide (Mounjaro) 5 mg/0.5 mL pen injector injection, Inject 0.5 mL (5 mg total) under the skin every 7 days , Disp: 6 mL, Rfl: 4 TRESIBA 200 unit/mL (3 mL) pen for injection, Inject 0.13 mL (26 Units total) under the skin daily , Disp: 30 mL, Rfl: 4 vitamin b complex tablet, Take 1 tablet by mouth daily, Disp: 90 tablet, Rfl: 1 cyclobenzaprine (FLEXERIL) 5 mg tablet, Take 1 tablet (5 mg total) by mouth 3 (three) times a day as needed for muscle spasms, Disp: 90 tablet, Rfl: 0 docusate sodium (COLACE) 100 mg capsule, Take 1 capsule (100 mg total) by mouth 2 (two) times a day, Disp: 60 capsule, Rfl: 0 lidocaine (LIDODERM) 5 %, Place 1 patch on the skin daily Remove & discard patch within 12 hours or as directed by MD., Disp: 30 patch, Rfl: 0 Objective PHYSICAL EXAM The patient is awake, alert and in no apparent distress. Cranial nerves II-XII are grossly intact, no pronator drift. The patient has 5/5 strength in the right deltoids, biceps, triceps, floating operator, and intrinsic hand muscles and 5/5 in the left deltoids, biceps, triceps, floating operator, and intrinsic hand muscles. The patient has 5/5 strength in the right iliopsoas, quads, hamstrings, gastrocnemius/soleus, anterior tibials, and extensor hallucis longus and 5/5 in the left iliopsoas, quads, hamstrings, gastrocnemius/soleus, anterior tibialis, and extensor hallucis longus. Their gait is stable. The patient is able to perform tandem gait. The patient's anterior incision is well healed. REVIEW OF IMAGING XR Spine Cervical 2 or 3 Views Narrative: EXAMINATION: XR SPINE CERVICAL 2 OR 3 VIEWS HISTORY: Cervical Pain FINDINGS: 2 view examination of the cervical spine is read with comparison to 05/22/2024. Unchanged anterior decompression and instrumented fusion from C4-C7. Instrumentation is intact. Alignment is normal without listhesis or kyphosis. No prevertebral soft tissue swelling. No fracture. Impression: 1. Unchanged anterior decompression and instrumented fusion from C4-C7. Electronically signed by: Matthew Prakash M.D. Assessment/Plan ASSESSMENT Encounter Diagnoses Name Primary? Cervical disc disorder with myelopathy of mid-cervical region Narrowing of lumbar spine PLAN I had a discussion with Niki Moreno and her sister regarding imaging and current complaints. Shecontinues to do very well postoperatively. Unfortunately, the patient lost her job. I would like her to return in 3 months time with x- rays of the cervical spine including flexion and extension. If she needs to posterior appointment out due to insurance issues that is fine. I have asked Niki Moreno to contact the office with any questions or concerns in the interim. Makeda Rosas NP Cosigned by Nolan Butler MD PhD at 06/19/2024 4:14 PM CDT documented in this encounter Plan of Treatment Not on file documented as of this encounter Visit Diagnoses Diagnosis Cervical disc disorder with myelopathy of mid-cervical region Narrowing of lumbar spine Spinal stenosis of lumbar region documented in this encounter Orders Outpatient Referral Count Last Ordered Date Fir st Ordered Date AMB REFERRAL TO NEUROSURGERY 1 06/19/2024 documented in this encounter Care Teams Technical Account Manager Relationship Specialty Start Date End Date Talia Ball PA [address] [facility] [email or web address] [address] [place] [address] PCP - General Internal Medicine 07/29/18 [place] [address] [facility] [address] [place] [address] Nurse Practitioner Metal Treater 03/06/24 Fiona Brandon MD [address] [place] [address] Referring Physician Interventional Cardiology 04/01/24 documented as of this encounter
--- OUTSIDE RECORDS SUMMARY | 2024-06-20 14:53 | XMS_ITS | Encounter Summary ---
Author Organization [facility] Healthcare Address [address] [place] [address] Care Team Providers Care Mandrel Cleaner Name Role Phone Talia Ball Primary Care Provider [phone] Bree Ballesteros LEAN MANUFACTURING ENGINEER Unavailable [phone] Fiona Brandon MD Unavailable Reason for Visit * Diagnostic Imaging (Routine) - Pending Review Specialty Diagnoses / Procedures Referred By Contac t Referred To Contact Diagnoses Cervical disc disorder with myelopathy of mid-cervical region Procedures XR Spine Cervical 2 or 3 Views XR Spine Cervical W Flexion And Extension 6 or More Views Nolan Butler MD PhD [address] [place] [address] Phone: tel: fax: [facility] [id number] [place] [address] [place] [address] Referral ID Status Reason Start Date Expiration Date V isits Requested Visits Authorized [id number] Pending Review 06/11/2024 07/11/2025 1 1 Encounter Details Date Type Department Care Team (Latest Contact Info) Description 06/19/2024 11:45 AM CDT - 06/19/2024 11:59 PM CDT Hospital Encounter [facility] [address] [facility] [address] [place] [address] Cervical disc disorder with myelopathy of mid-cervical region Discharge Disposition: Discharge to home or self care Social History Tobacco Use Types Packs/Day Years [...] file Legal Sex Female 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 Never 06/19/2024 12:06 PM CDT Laina Cavazos CMA documented as of this encounter Medications at Time of Discharge cholecalciferol (D3-2000) 2000 unit capsule Take 1 capsule (2,000 Units total) by mouth nightly clopidogreL (PLAVIX) 75 mg tabletIndication s:Coronary artery disease involving [place] coronary artery of [place] heart without angina pectoris Take 1 tablet (75 mg total) by mouth daily DO NOT RESUME TAKING UNTIL 04/22/24. 90 tablet 2 06/16/2024 [facility] G7 Sensor device 1 Device continuously . Change every 10 days. E11.65 10 each 3 11/13/2023 insulin lispro (HumaLOG, ADMELOG) 100 unit/mL pen for injection Inject under the skin 4 (four) times a day as needed magnesium oxide (MAG-OX) 400 mg (241.3 mg elemental magnesium) tablet Take 1 tablet (400 mg total) by mouth daily 90 tablet 1 01/08/2020 melatonin 5 mg tablet, sublingual Place 10 mg under the tongue nightly as needed nitroglycerin (NITROSTAT) 0.4 mg SL tabletIndication s:Coronary artery disease involving [place] coronary artery of [place] heart without angina pectoris,Other chest pain Place 1 tablet (0.4 mg total) under the tongue every 5 (five) minutes as needed for chest pain 25 tablet 3 11/20/[address] (PROTONIX) 40 mg EC tablet Take 1 tablet (40 mg total) by mouth daily 90 tablet 2 06/16/2024 rosuvastatin (CRESTOR) 40 mg tablet Take 1 tablet (40 mg total) by mouth daily 90 tablet 2 06/16/2024 sertraline (ZOLOFT) 100 mg tablet Take 1 tablet (100 mg total) by mouth daily 90 tablet 2 07/17/2021 tirzepatide (Mounjaro) 5 mg/0.5 mL pen injector injection Inject 0.5 mL (5 mg total) under the skin every 7 days E11.65 6 mL 4 06/03/2024 TRESIBA 200 unit/mL (3 mL) pen for injection Inject 0.13 mL (26 Units total) under the skin daily E11.65 30 mL 4 06/03/2024 vitamin b complex tablet Take 1 tablet by mouth daily 90 tablet 1 02/22/2020 documented as of this encounter Discharge Disposition Disposition Code Departure Means Destination Discharge to home or self care documented in this encounter Plan of Treatment Not on file documented as of this encounter Procedures Procedure Name Priority Date/Time Associated Diagnosis Comments XR SPINE CERVICAL 2 OR 3 VIEWS Schedule Routine, Read Routine (OP Routine) 06/19/2024 12:02 PM CDT Cervical disc disorder with myelopathy of mid-cervical region documented in this encounter Results * XR Spine Cervical 2 or 3 Views (06/19/2024 12:02 PM CDT) Anatomical Region Laterality Modality Spine N/A Computed Radiogr aphy 06/19/2024 12:1 2 PM CDT Impressions 06/19/2024 12:12 PM CDT 1. Unchanged anterior decompression and instrumented fusion from C4-C7. Electronically signed by: Matthew Prakash M.D. Narrative 06/19/2024 12:12 PM CDT EXAMINATION: XR SPINE CERVICAL 2 OR 3 VIEWS HISTORY: Cervical Pain FINDINGS: 2 view examination of the cervical spine is read with comparison to 05/22/2024. Unchanged anterior decompression and instrumented fusion from C4-C7. Instrumentation is intact. Alignment is normal without listhesis or kyphosis. No prevertebral soft tissue swelling. No fracture. Procedure Note Matthew George MD - 06/19/2024 EXAMINATION: XR SPINE CERVICAL 2 OR 3 VIEWS HISTORY: Cervical Pain FINDINGS: 2 view examination of the cervical spine is read with comparison to 05/22/2024. Unchanged anterior decompression and instrumented fusion from C4-C7. Instrumentation is intact. Alignment is normal without listhesis or kyphosis. No prevertebral soft tissue swelling. No fracture. IMPRESSION: 1. Unchanged anterior decompression and instrumented fusion from C4-C7. Electronically signed by: Matthew Prakash M.D. Nolan Butler MD PhD IMG XR PROCEDURES Final R esult documented in this encounter Visit Diagnoses Diagnosis Cervical disc disorder with myelopathy of mid-cervical region documented in this encounter Care Teams Mandrel Cleaner Relationship Specialty Start Date End Date Talia Ball PA [address] [facility] [address] [place] [address] PCP - General Internal Medicine 07/29/18 [place] [address] [facility] [address] [place] [address] Nurse Practitioner Mine Engineering Superintendent 03/06/24 Fiona Brandon MD [address] [place] [address] [address] [place] [address] Referring Physician Interventional Cardiology 04/01/24 documented as of this encounter
--- OUTSIDE RECORDS SUMMARY | 2024-06-20 14:53 | XMS_ITS ---
Author Organization [facility] As Recorded Future Address [address] [place] [address] Care Team Providers Care Supply Teacher Name Role Phone Bree Merino Unavailable [phone] Migration, Provider Unavailable Unavailable Allergies Allergen (clinical drug ingredient) Drug/Non Drug Allergy documented on EMR Reaction Allergy Type Onset Date Status Substance with penicillin structure and antibacterial mechanism of action (substance) Penicillins Unknown Drug Allergy 07/24/2023 Active REASON FOR VISIT EMR-Mark Medications Medication SIG (Take, Route, Frequency, Duration) Notes Start Date End Date Status Insulin Lispro (1 Unit Dial) 100 UNIT/ML Subcutaneous 07/24/2023 Active metFORMIN HCl 500 MG Oral 07/24/2023 Active Rosuvastatin Calcium 10 MG Oral 07/24/2023 Active Ozempic (1 MG/DOSE) 4 MG/3ML Subcutaneous *Pick strength-form from [facility] for eRX* 07/24/2023 Active FREESTYLE LUCAS 2 SENSOR KIT *[facility] and Interaction Alerts* 07/24/2023 Active Clopidogrel Bisulfate 75 MG Oral 07/24/2023 Active Ammonium Lactate 12 % External 07/24/2023 Active VICTOZA 2-NERY 0.6 mg/0.1 mL (18 mg/3 mL) Subcutaneous *[facility] for [facility] and Interaction Alerts* 07/24/2023 Active predniSONE 10 MG Oral 07/24/2023 Ac tive Magnesium Oxide (Elemental) 400 MG Oral *[facility] for [facility] and Interaction Alerts* 07/24/2023 Active Basaglar KwikPen 100 UNIT/ML Subcutaneous 07/24/2023 Active Nitroglycerin 0.4 MG Sublingual 07/24/2023 Active OneTouch Verio In Vitro 07/24/2023 Acti ve Benzonatate 100 MG Oral 07/24/2023 Active Lisinopril 20 MG Oral 07/24/2023 Ac tive Pantoprazole Sodium 40 MG Oral 07/24/2023 Active Fluticasone Propionate Diskus 50 MCG/ACT Inhalation *Reorder from [facility] for eRx and Interaction Alerts* 07/24/2023 Active Rosuvastatin Calcium 40 MG Oral 07/24/2023 Active Sertraline HCl 100 MG Oral 07/24/2023 Active OZEMPIC 1 MG/DOSE (2 MG/1.5 ML) SUBCUTANEOUS PEN INJECTOR *Reorder from [facility] for eRx and Interaction Alerts* 07/24/2023 Active Levemir FlexPen 100 unit/mL (3 mL) SUBCUTANEOUS *Reorder from [facility] for eRx and Interaction Alerts* 07/24/2023 Active Permethrin 5% External 07/24/2023 Activ e BD ULTRA-FINE PEN NEEDLE 32 gauge x MISCELLANEOUS *Reorder from [facility] for eRx and Interaction Alerts* 07/24/2023 Active Hydrocortisone Phuc-Pramoxine 2.5-1 % Rectal 07/24/2023 Active INSULIN GLARGINE-YFGN (U-100) 100 UNIT/ML (3 ML) SUBCUTANEOUS PEN *Reorder from [facility] for eRx and Interaction Alerts* 07/24/2023 Active Aspirin Adult Low Strength 81 MG Oral 07/24/2023 Active Social History Sex Assigned At : Social History Observation Description Sex Assigned At Female Encounters Encounter Location Date Provider Diagnosis [facility] [address] [address] 08/12/2023 Provider Migration Plan Of Treatment Next Appt Details Provider Name:Bree Merino , 06/23/2024 04:15:00 PM, [address], [place], [address], Progress Notes * DEBORAH DURANOB:1960 (63 yo F)Acc No.[id number]:08/12/2023 Patient: SABRINA CORTES :1960 A ge:63 Y S ex:Female Address:[address] [place] [address], [address] Subjective: * Chief Complaints: * E MR-Mark * Medical History: * Epic Interface Analyst History: M igrated GYNHistory M igrated GYNHistory:: Abnormal Pap: N Modified Date:10/12/2020,Age at Menarche: 13 Modified Date:10/12/2020,Date of Last Colonoscopy: 05/05/2017 Modified Date:10/12/2020,Date of Last Mammogram: 08/09/2019 Modified Date:10/12/2020,Date of Last Pap Smear: 11/20/2014 Modified Date:10/12/2020,LMP: Approximate Modified Date:04/10/2023,Sexual Problems: N Modified Date:10/12/2020,Sexually Active: N Modified Date:10/12/2020, . * Surgical History: H ysterectomy/revise vagina (05937) Endometrial ablation (95335) 05/20/1989Hysterectomy (95877) 07/05/1994Any surgical history 07/08/1994Cardiac stent 07/30/2020Other 11/04/2018Tonsilectomy/adenoids 11/04/2018 * Hospitalization/Major Diagno stic Procedure: * Family History: F ather: Alcohol abuse , Substance abuse . U nspecified Relation: Bipolar disorder . M other: Morbid obesity , Family history of cancer . B rother: History of attempted suicide , Suicide , Schizophrenia , Substance abuse . S ister: Morbid obesity , Attention deficit hyperactivity disorder , Diabetes mellitus , Hypothyroidism , Anxiety disorder , Depressive disorder , Myocardial infarction , Substance abuse . * Social History: M igrated Social History: M igrated Social History: Alcohol Intake: None 01/27/2020,Tobacco Years: Former smoker 01/27/2020,Smoking Status: 25 01/16/2023. * Medications: T akingClopidogrel Bisulfate 75 MG Tablet Oral FREESTYLE LUCAS 2 SENSOR KIT , Notes to Pharmacist: *Reorder from [email or web address] for eRx and Interaction Alerts*Fluticasone Propionate Diskus 50 MCG/ACT Aerosol Powder Breath Activated Inhalation , Notes to Pharmacist: *Reorder from [facility] for eRx and Interaction Alerts*VICTOZA 2-NERY 0.6 mg/0.1 mL (18 mg/3 mL) Solution Pen-injector Subcutaneous , Notes to Pharmacist: *Reorder from [facility] for eRx and Interaction Alerts*Pantoprazole Sodium 40 MG Tablet Delayed Release Oral Rosuvastatin Calcium 40 MG Tablet Oral Sertraline HCl 100 MG Tablet Oral OneTouch Verio Strip In Vitro Basaglar KwikPen 100 UNIT/ML Solution Pen-injector Subcutaneous Ammonium Lactate 12 % Cream External Magnesium Oxide (Elemental) 400 MG Tablet Oral , Notes to Pharmacist: *Reorder from [facility] for eRx and Interaction Alerts*Levemir FlexPen 100 unit/mL (3 mL) INSULIN PEN (ML) SUBCUTANEOUS , Notes to Pharmacist: *Reorder from [facility] for eRx and Interaction Alerts*Permethrin 5% Cream External BD ULTRA-FINE PEN NEEDLE 32 gauge x 5/32 NEEDLE, DISPOSABLE MISCELLANEOUS , Notes to Pharmacist: *Reorder from [facility] for eRx and Interaction Alerts*Hydrocortisone Phuc-Pramoxine 2.5-1 % Cream Rectal OZEMPIC 1 MG/DOSE (2 MG/1.5 ML) SUBCUTANEOUS PEN INJECTOR , Notes to Pharmacist: *Reorder from [facility] for eRx and Interaction Alerts*Benzonatate 100 MG Capsule Oral Lisinopril 20 MG Tablet Oral Insulin Lispro (1 Unit Dial) 100 UNIT/ML Solution Pen-injector Subcutaneous Aspirin Adult Low Strength 81 MG Tablet Delayed Release Oral INSULIN GLARGINE-YFGN (U-100) 100 UNIT/ML (3 ML) SUBCUTANEOUS PEN , Notes to Pharmacist: *Reorder from [facility] for eRx and Interaction Alerts*Rosuvastatin Calcium 10 MG Tablet Oral Ozempic (1 MG/DOSE) 4 MG/3ML Solution Pen-injector Subcutaneous , Notes to Pharmacist: *Pick strength-form from [facility] for eRX*Nitroglycerin 0.4 MG Tablet Sublingual Sublingual predniSONE 10 MG Tablet Oral metFORMIN HCl 500 MG Tablet Oral Taking Clopidogrel Bisulfate 75 MG Tablet Oral Taking FREESTYLE LUCAS 2 SENSOR KIT , Notes to Pharmacist: *Reorder from [facility] for eRx and Interaction Alerts*Taking Fluticasone Propionate Diskus 50 MCG/ACT Aerosol Powder Breath Activated Inhalation , Notes to Pharmacist: *Reorder from [facility] for eRx and Interaction Alerts*Taking VICTOZA 2-NERY 0.6 mg/0.1 mL (18 mg/3 mL) Solution Pen-injector Subcutaneous , Notes to Pharmacist: *Reorder from [facility] for eRx and Interaction Alerts*Taking Pantoprazole Sodium 40 MG Tablet Delayed Release Oral Taking Rosuvastatin Calcium 40 MG Tablet Oral Taking Sertraline HCl 100 MG Tablet Oral Taking OneTouch Verio Strip In Vitro Taking Basaglar KwikPen 100 UNIT/ML Solution Pen-injector Subcutaneous Taking Ammonium Lactate 12 % Cream External Taking Magnesium Oxide (Elemental) 400 MG Tablet Oral , Notes to Pharmacist: *Reorder from [facility] for eRx and Interaction Alerts*Taking Levemir FlexPen 100 unit/mL (3 mL) INSULIN PEN (ML) SUBCUTANEOUS , Notes to Pharmacist: *Reorder from [facility] for eRx and Interaction Alerts*Taking Permethrin 5% Cream External Taking BD ULTRA-FINE PEN NEEDLE 32 gauge x 5/32 NEEDLE, DISPOSABLE MISCELLANEOUS , Notes to Pharmacist: *Reorder from [facility] for eRx and Interaction Alerts*Taking Hydrocortisone Phuc-Pramoxine 2.5-1 % Cream Rectal Taking OZEMPIC 1 MG/DOSE (2 MG/1.5 ML) SUBCUTANEOUS PEN INJECTOR , Notes to Pharmacist: *Reorder from [facility] for eRx and Interaction Alerts*Taking Benzonatate 100 MG Capsule Oral Taking Lisinopril 20 MG Tablet Oral Taking Insulin Lispro (1 Unit Dial) 100 UNIT/ML Solution Pen-injector Subcutaneous Taking Aspirin Adult Low Strength 81 MG Tablet Delayed Release Oral Taking INSULIN GLARGINE-YFGN (U-100) 100 UNIT/ML (3 ML) SUBCUTANEOUS PEN , Notes to Pharmacist: *Reorder from [facility] for eRx and Interaction Alerts*Taking Rosuvastatin Calcium 10 MG Tablet Oral Taking Ozempic (1 MG/DOSE) 4 MG/3ML Solution Pen-injector Subcutaneous , Notes to Pharmacist: *Pick strength-form from [facility] for eRX*Taking Nitroglycerin 0.4 MG Tablet Sublingual Sublingual Taking predniSONE 10 MG Tablet Oral Taking metFORMIN HCl 500 MG Tablet Oral * Allergies: P enicillins: Allergy - Onset Date 07/24/2023 Objective: * Vitals: * Physical Examination: Assessment: Plan: * Treatment: * Procedure Codes: * true * Date: Generated for Moises winters/Lisha/Parth on: 0 06/20/2024 02:52 PM CDT
--- OUTSIDE RECORDS SUMMARY | 2024-06-20 14:53 | XMS_ITS | Clinical Summary ---
Author Organization [facility] Address [address] [place] [id number] Care Team Providers Care Immigration Investigator Name Role Phone Unavailable Primary Care Provider Unavailabl e Social History Tobacco Use Types Packs/Day Years Used Date Smoking Tobacco: Never Assessed Comments Unknown Sex and Gender Information Value Date Recorded Sex Assigned at Not on file Legal Sex Female 7:42 PM CDT Gender Identity Not on file Sexual Orientation Not on file Plan of Treatment Health Maintenance Due Date Last Done Comments Cervical Cancer Screening Pa p Smear (Age 30 to 64) Every 3 Years 1961 Colorectal Cancer Screening Colonoscopy (10 Years) 1961 Annual Physical 1964 Hepatitis C 1979 DTaP, Tdap and Td Vaccines ( 1 - Tdap) 1980 Cervical Cancer Screening Pa p with HPV Testing (Age 30 to 64) Every 5 Years 1991 Cervical Cancer Screening with HPV 1991 Mammogram Screening 2001 Zoster Vaccines (1 of 2) 2011 COVID-19 Vaccine (2023-2 5 season) 2023 Influenza Adult (#1) 2023 RSV Immunization or 60+ Years (1 - 1-dose 75+ series) 2036 Meningococcal B Vaccine Aged Out No l onger eligible based on patient's age to complete this topic Meningococcal Vaccine Aged Out No kandace adrian eligible based on patient's age to complete this topic Pneumococcal Vaccine: Pediat rics (0 to 5 Years) and At-Risk Patients (6 to 64 Years) Aged Out No longer eligible b ased on patient's age to complete this topic RSV Immunizations Under 20 Months Aged Out No longer eligible based on patient's age to complete this topic
--- OUTSIDE RECORDS SUMMARY | 2024-06-20 14:53 | XMS_ITS ---
Author Organization [facility] As [employer] Address [address] [place] [address] Care Team Providers Care Personnel Consultant Name Role Phone Bree Merino Unavailable [phone] Allergies Allergen (clinical drug ingredient) Drug/Non Drug Allergy documented on EMR Reaction Allergy Type Onset Date Status Substance with penicillin structure and antibacterial mechanism of action (substance) Penicillins Unknown Drug Allergy 07/24/2023 Active REASON FOR VISIT f/u rx Medications Medication SIG (Take, Route, Frequency, Duration) Notes Start Date End Date Status Hydrocortisone Phuc-Pramoxine 2.5-1 % Rectal 07/24/2023 Active OZEMPIC 1 MG/DOSE (2 MG/1.5 ML) SUBCUTANEOUS PEN INJECTOR *Reorder from [facility] for eRx and Interaction Alerts* 07/24/2023 Active BD ULTRA-FINE PEN NEEDLE 32 gauge x 5/32 MISCELLANEOUS *Reorder from [facility] for eRx and Interaction Alerts* 07/24/2023 Active Benzonatate 100 MG Oral 07/24/2023 Active Lisinopril 20 MG Oral 07/24/2023 Ac tive Magnesium Oxide (Elemental) 400 MG Oral *Reorder from [facility] for eRx and Interaction Alerts* 07/24/2023 Active Levemir FlexPen 100 unit/mL (3 mL) SUBCUTANEOUS *Reorder from [facility] for eRx and Interaction Alerts* 07/24/2023 Active Basaglar KwikPen 100 UNIT/ML Subcutaneous 07/24/2023 Active Ammonium Lactate 12 % External 07/24/2023 Active Permethrin 5% External 07/24/2023 Activ e Fluticasone Propionate Diskus 50 MCG/ACT Inhalation *Reorder from [facility] for eRx and Interaction Alerts* 07/24/2023 Active VICTOZA 2-NERY 0.6 mg/0.1 mL (18 mg/3 mL) Subcutaneous *Reorder from [facility] for eRx and Interaction Alerts* 07/24/2023 Active OneTouch Verio In Vitro 07/24/2023 Acti ve Pantoprazole Sodium 40 MG Oral 07/24/2023 Active Rosuvastatin Calcium 40 MG Oral 07/24/2023 Active Clopidogrel Bisulfate 75 MG Oral 07/24/2023 Active metFORMIN HCl 500 MG Oral 07/24/2023 Active Sertraline HCl 100 MG 1 tablet Oral Once a day for 90 days 07/24/2023 Active FREESTYLE LUCAS 2 SENSOR KIT *Reorder from [facility] for eRx and Interaction Alerts* 07/24/2023 Active predniSONE 10 MG Oral 07/24/2023 Ac tive Ozempic (1 MG/DOSE) 4 MG/3ML Subcutaneous *Pick strength-form from [facility] for eRX* 07/24/2023 Active Nitroglycerin 0.4 MG Sublingual 07/24/2023 Active Aspirin Adult Low Strength 81 MG Oral 07/24/2023 Active INSULIN GLARGINE-YFGN (U-100) 100 UNIT/ML (3 ML) SUBCUTANEOUS PEN *Reorder from [facility] for eRx and Interaction Alerts* 07/24/2023 Active Rosuvastatin Calcium 10 MG Oral 07/24/2023 Active Insulin Lispro (1 Unit Dial) 100 UNIT/ML Subcutaneous 07/24/2023 Active Social History Sex Assigned At : Social History Observation Description Sex Assigned At Female Section Notes: Substance UseDo you or have you ever smoked tobacco?: Former smokerHow many years have you smoked tobacco?: 25At what age did you start smoking tobacco?: 15How much tobacco do you smoke?: NoneWhen did you quit smoking?: 16+ years since last cigaretteDo you or have you ever used any other forms of tobacco or nicotine?: NoDo you or have you ever used e-cigarettes or vape?: Never used electronic cigarettesDo you or have you ever used smokeless tobacco?: Never used smokeless tobaccoHow much tobacco do you chew?: noneWhat was the date of your most recent tobacco screening?: 07/24/2023Has tobacco cessation counseling been provided?: NoOn what date was tobacco cessation counseling provided?: (Notes: [id number] answered No to the Tobacco cessation counseling provided question on 09/09/2018.)What is your level of alcohol consumption?: NoneHow many years have you consumed alcohol?: 9Have you ever been counseled for unhealthy alcohol use?: NoIf you are , what was your level of alcohol consumption prior to ?: HeavyDo you use any illicit or recreational drugs?: NoWhich illicit or recreational drugs have you used?: Sober since Mar Many before that dateHow many years have you used illicit or recreational drugs?: 0 (Notes: HX drug use stopped 1984)Have you used IV drugs?: NoWhat is your level of caffeine consumption?: ModerateEducation and OccupationWhat is the highest grade or level of school you have completed or the highest degree you have received?: Bachelor's degree (e.g., BA, AB, BS)Are you currently in school?: NoAre you currently employed?: YesWho is your employer?: [employer] and family servicesMarriage and SexualityWhat is your relationship status?: SingleAre you sexually active?: NoDo you use protection during sex?: NoHow many children do you have?: 1Home and EnvironmentAre you a caregiver?: NoDo you have any siblings?: 4Do you have smoke and carbon monoxide detectors in your home?: YesAre you passively exposed to smoke?: NoAre there any smokers in your house?: NoAre there any guns present in your home?: NoDiet and ExerciseWhat type of diet are you following?: RegularWhat is your exercise level?: NoneHow many days of moderate to strenuous exercise, like a brisk walk, did you do in the last 7 days?: 0LifestyleDo you use your seat belt or car seat routinely?: YesAdvance DirectiveDo you have an advance directive?: YesDo you have a medical power of assistant city attorney?: NoPublic Health and TravelHave you been to an area known to be high risk for COVID-19?: NoActivities of Daily LivingAre you able to care for yourself?: YesAre you blind or do you have difficulty seeing?: NoAre you deaf or do you have serious difficulty hearing? : NoDo you have difficulty concentrating, remembering or making decisions?: NoDo you have difficulty walking or climbing stairs?: NoDo you have difficulty dressing or bathing?: NoDo you have difficulty doing errands alone?: NoAre you able to walk?: Yes: walks without restrictionsDo you have transportation difficulties?: NoOtherAccident Related Injury: NoAuto related injury?: NoDrugs Abused: none currentEducation: 4 Year CollegeFamily history of heart disease?: YesHow many days in the past year have you had a heavy drinking consumption (4+ female, 5+ male)?: 0High blood pressure: NoHigh Cholesterol: NoHigh number of sexual partners: YesHistory of inconsistent/no condom use: YesHIV Risk factors: NoIllicit drugs pre-: noneMarital status: SingleSmoking pre-: YesPast steroid/HgH use?: NoGender Identity and LGBTQ IdentityGender identity: Identifies as FemaleAssigned sex at : FemaleFirst name used: SUESexual orientation: Straight or heterosexual Problems Problem Type SNOMED Code ICD Code Onset Dates Problem Status W/U Status Risk Notes Problem Mild recurrent major depression (31625244) Major depressive disorder, recurrent, mild (F33.0) 07/24/19 24 Active confirmed Problem Generalized anxiety disorder (86028865) Generalized anxiety disorder (F41.1) 07/24/19 24 Active confirmed Problem Primary insomnia (2004263) Primary insomnia (F51.01) 07/24/19 24 Active confirmed Problem Attention deficit hyperactivity disorder, combined type (39364271) Attention-deficit hyperactivity disorder, combined type (F90.2) 07/24/19 24 Active confirmed Problem Long-term current use of drug therapy (192939462) Other mcc (current) drug therapy (Z79.899) 07/24/19 24 Active confirmed Encounters [facility] [address] [address] 09/18/2023 Bree Merino Major depressive disorder, recurrent, mild F33.0 ; Generalized anxiety disorder F41.1 ; Primary insomnia F51.01 ; Attention-deficit hyperactivity disorder, combined type F90.2 and Other mcc (current) drug therapy Z79.899 Assessments Encounter Date Diagnosis (ICD Code) Assessment Notes Treatment Notes Treatment Clinical Notes Section Notes 09/18/2023 Major depressive disorder, recurrent, mild (ICD-10 - F33.0) 1. Mild recurrent major depression -Sertraline 100 mg dailyobtain labs PCP see PCPseen skip tracer, pulmonology, dentist, and PCP educated on all medications, benefits, side effects and risk, and educated on depression, anxiety, and ADHD, mood d/o and educated on compliance of medications, appointment's, continue therapy discussion with patient about course of treatment and patient instructions.light therapy (educated on light box therapy and proper use)F33.0: Major depressive disorder, recurrent, mildmonitorsertraline 100 mg tablet - TAKE 1 TABLET BY MOUTH ONCE DAILY Qty: (90) tablet Refills: 0 Pharmacy: [facility] [employer] [id number] Note to Pharmacy: D/C 50 mg daily 2. Generalized anxiety disorder -sertraline 100 mg daily monitor B/P education on all medications Medication Management and Follow-Up- Plan:- Schedule follow-up appointments every 2-3 months to monitor the patient's response to the medication regimen.- Reinforce the importance of avoiding recreational drug use due to potential neurotoxicity and interactions with prescribed medications. F41.1: Generalized anxiety disordermonitor 3. Primary insomnia -Melatonin 10 mg as neededseen sleep specialist CPAP and educated on using xopchrvQ51.01: Primary insomnia 4. Attention deficit hyperactivity disorder, combined type -hx cardiac stent 07/2020 for Irma 2 TEST RESULT REVIEWED No RX EDEOWI31.2: Attention-deficit hyperactivity disorder, combined type 5. Long-term drug thmhhhsY81.899: Other mcc (current) drug therapy , Preventing Depression From Coming Back: Care Instructions material was published, Learning About Depression Screening material was published, Seasonal Affective Disorder: Care Instructions material was published 1. Mild recurrent major depression -Sertraline 100 mg daily obtain labs PCP see PCP seen skip tracer, pulmonology, dentist, and PCP educated on all medications, benefits, side effects and risk, and educated on depression, anxiety, and ADHD, mood d/o and educated on compliance of medications, appointment's, continue therapy discussion with patient about course of treatment and patient instructions.light therapy (educated on light box therapy and proper use) F33.0: Major depressive disorder, recurrent, mildmonitorsertrali ne 100 mg tablet - TAKE 1 TABLET BY MOUTH ONCE DAILY Qty: (90) tablet Refills: 0 Pharmacy: [facility] [id number] Note to Pharmacy: D/C 50 mg daily 2. Generalized anxiety disorder -sertraline 100 mg daily monitor B/P education on all medications Medication Management and Follow-Up- Plan:- Schedule follow-up appointments every 2-3 months to monitor the patient's response to the medication regimen.- Reinforce the importance of avoiding recreational drug use due to potential neurotoxicity and interactions with prescribed medications. F41.1: Generalized anxiety disorder monitor 3. Primary insomnia - Melatonin 10 mg as needed seen sleep specialist CPAP and educated on using nightly F51.01: Primary insomnia 4. Attention deficit hyperactivity disorder, combined type -hx cardiac stent 07/2020 for maker PRAKASH 2 TEST RESULT REVIEWED No RX GIVEN F90.2: Attention-deficit hyperactivity disorder, combined type 5. Long-term drug qhxvtheG09.899: Other intermediate accountant (current) drug therapy 09/18/2023 Generalized anxiety disorder (ICD-10 - F41.1) Generalized Anxiety Disorder: Care Instructions material was published, Learning About Anxiety Disorders material was published 1. Mild recurrent major depression -Sertraline 100 mg daily obtain labs PCP see PCP seen skip tracer, pulmonology, dentist, and PCP educated on all medications, benefits, side effects and risk, and educated on depression, anxiety, and ADHD, mood d/o and educated on compliance of medications, appointment's, continue therapy discussion with patient about course of treatment and patient instructions.light therapy (educated on light box therapy and proper use) F33.0: Major depressive disorder, recurrent, mildmonitorsertrali ne 100 mg tablet - TAKE 1 TABLET BY MOUTH ONCE DAILY Qty: (90) tablet Refills: 0 Pharmacy: [facility] [id number] Note to Pharmacy: D/C 50 mg daily 2. Generalized anxiety disorder -sertraline 100 mg daily monitor B/P education on all medications Medication Management and Follow-Up- Plan:- Schedule follow-up appointments every 2-3 months to monitor the patient's response to the medication regimen.- Reinforce the importance of avoiding recreational drug use due to potential neurotoxicity and interactions with prescribed medications. F41.1: Generalized anxiety disorder monitor 3. Primary insomnia - Melatonin 10 mg as needed seen sleep specialist CPAP and educated on using nightly F51.01: Primary insomnia 4. Attention deficit hyperactivity disorder, combined type -hx cardiac stent 07/2020 for maker PRAKASH 2 TEST RESULT REVIEWED No RX GIVEN F90.2: Attention-deficit hyperactivity disorder, combined type 5. Long-term drug lcqzxxsK49.899: Other mcc (current) drug therapy 09/18/2023 Primary insomnia (ICD-10 - F51.01) Insomnia: Care Instructions material was published, Learning About Sleeping Well material was published 1. Mild recurrent major depression -Sertraline 100 mg daily obtain labs PCP see PCP seen skip tracer, pulmonology, dentist, and PCP educated on all medications, benefits, side effects and risk, and educated on depression, anxiety, and ADHD, mood d/o and educated on compliance of medications, appointment's, continue therapy discussion with patient about course of treatment and patient instructions.light therapy (educated on light box therapy and proper use) F33.0: Major depressive disorder, recurrent, mildmonitorsertrali ne 100 mg tablet - TAKE 1 TABLET BY MOUTH ONCE DAILY Qty: (90) tablet Refills: 0 Pharmacy: [facility] [employer] [id number] Note to Pharmacy: D/C 50 mg daily 2. Generalized anxiety disorder -sertraline 100 mg daily monitor B/P education on all medications Medication Management and Follow-Up- Plan:- Schedule follow-up appointments every 2-3 months to monitor the patient's response to the medication regimen.- Reinforce the importance of avoiding recreational drug use due to potential neurotoxicity and interactions with prescribed medications. F41.1: Generalized anxiety disorder monitor 3. Primary insomnia - Melatonin 10 mg as needed seen sleep specialist CPAP and educated on using nightly F51.01: Primary insomnia 4. Attention deficit hyperactivity disorder, combined type -hx cardiac stent 07/2020 for maker PRAKASH 2 TEST RESULT REVIEWED No RX GIVEN F90.2: Attention-deficit hyperactivity disorder, combined type 5. Long-term drug rmjluceY04.899: Other mcc (current) drug therapy 09/18/2023 Attention-defi cit hyperactivity disorder, combined type (ICD-10 - F90.2) Learning About Attention Deficit Hyperactivity Disorder (ADHD) in Adults material was published 1. Mild recurrent major depression -Sertraline 100 mg daily obtain labs PCP see PCP seen skip tracer, pulmonology, dentist, and PCP educated on all medications, benefits, side effects and risk, and educated on depression, anxiety, and ADHD, mood d/o and educated on compliance of medications, appointment's, continue therapy discussion with patient about course of treatment and patient instructions.light therapy (educated on light box therapy and proper use) F33.0: Major depressive disorder, recurrent, mildmonitorsertrali ne 100 mg tablet - TAKE 1 TABLET BY MOUTH ONCE DAILY Qty: (90) tablet Refills: 0 Pharmacy: [facility] [id number] Note to Pharmacy: D/C 50 mg daily 2. Generalized anxiety disorder -sertraline 100 mg daily monitor B/P education on all medications Medication Management and Follow-Up- Plan:- Schedule follow-up appointments every 2-3 months to monitor the patient's response to the medication regimen.- Reinforce the importance of avoiding recreational drug use due to potential neurotoxicity and interactions with prescribed medications. F41.1: Generalized anxiety disorder monitor 3. Primary insomnia - Melatonin 10 mg as needed seen sleep specialist CPAP and educated on using nightly F51.01: Primary insomnia 4. Attention deficit hyperactivity disorder, combined type -hx cardiac stent 07/2020 for maker PRAKASH 2 TEST RESULT REVIEWED No RX GIVEN F90.2: Attention-deficit hyperactivity disorder, combined type 5. Long-term drug egcjlibN04.899: Other intermediate accountant (current) drug therapy 09/18/2023 Other intermediate accountant (current) drug therapy (ICD-10 - Z79.899) Medication Refill: Care Instructions material was published 1. Mild recurrent major depression -Sertraline 100 mg daily obtain labs PCP see PCP seen skip tracer, pulmonology, dentist, and PCP educated on all medications, benefits, side effects and risk, and educated on depression, anxiety, and ADHD, mood d/o and educated on compliance of medications, appointment's, continue therapy discussion with patient about course of treatment and patient instructions.light therapy (educated on light box therapy and proper use) F33.0: Major depressive disorder, recurrent, mildmonitorsertrali ne 100 mg tablet - TAKE 1 TABLET BY MOUTH ONCE DAILY Qty: (90) tablet Refills: 0 Pharmacy: [facility] [id number] Note to Pharmacy: D/C 50 mg daily 2. Generalized anxiety disorder -sertraline 100 mg daily monitor B/P education on all medications Medication Management and Follow-Up- Plan:- Schedule follow-up appointments every 2-3 months to monitor the patient's response to the medication regimen.- Reinforce the importance of avoiding recreational drug use due to potential neurotoxicity and interactions with prescribed medications. F41.1: Generalized anxiety disorder monitor 3. Primary insomnia - Melatonin 10 mg as needed seen sleep specialist CPAP and educated on using nightly F51.01: Primary insomnia 4. Attention deficit hyperactivity disorder, combined type -hx cardiac stent 07/2020 for maker PRAKASH 2 TEST RESULT REVIEWED No RX GIVEN F90.2: Attention-deficit hyperactivity disorder, combined type 5. Long-term drug nohardtT83.899: Other mcc (current) drug therapy 09/18/2023 Other Sertraline Oral Tablet (SERTRALINE - ORAL) material was published 1. Mild recurrent major depression -Sertraline 100 mg daily obtain labs PCP see PCP seen skip tracer, pulmonology, dentist, and PCP educated on all medications, benefits, side effects and risk, and educated on depression, anxiety, and ADHD, mood d/o and educated on compliance of medications, appointment's, continue therapy discussion with patient about course of treatment and patient instructions.light therapy (educated on light box therapy and proper use) F33.0: Major depressive disorder, recurrent, mildmonitorsertrali ne 100 mg tablet - TAKE 1 TABLET BY MOUTH ONCE DAILY Qty: (90) tablet Refills: 0 Pharmacy: [facility] [id number] Note to Pharmacy: D/C 50 mg daily 2. Generalized anxiety disorder -sertraline 100 mg daily monitor B/P education on all medications Medication Management and Follow-Up- Plan:- Schedule follow-up appointments every 2-3 months to monitor the patient's response to the medication regimen.- Reinforce the importance of avoiding recreational drug use due to potential neurotoxicity and interactions with prescribed medications. F41.1: Generalized anxiety disorder monitor 3. Primary insomnia - Melatonin 10 mg as needed seen sleep specialist CPAP and educated on using nightly F51.01: Primary insomnia 4. Attention deficit hyperactivity disorder, combined type -hx cardiac stent 07/2020 for maker PRAKASH 2 TEST RESULT REVIEWED No RX GIVEN F90.2: Attention-deficit hyperactivity disorder, combined type 5. Long-term drug bxkbiwvV45.899: Other intermediate accountant (current) drug therapy Plan Of Treatment Medication Medication Name Sig Start Date Stop Date Notes Sertraline HCl 100 MG 1 tablet Oral Once a day for 90 days 07/24/2023 Treatment Notes Assessment Notes Major depressive disorder, r ecurrent, mild 1. Mild recurrent major depression -Sertraline 100 mg dailyobtain labs PCP see PCPseen skip tracer, pulmonology, dentist, and PCP educated on all medications, benefits, side effects and risk, and educated on depression, anxiety, and ADHD, mood d/o and educated on compliance of medications, appointment's, continue therapy discussion with patient about course of treatment and patient instructions.light therapy (educated on light box therapy and proper use)F33.0: Major depressive disorder, recurrent, mildmonitorsertraline 100 mg tablet - TAKE 1 TABLET BY MOUTH ONCE DAILY Qty: (90) tablet Refills: 0 Pharmacy: [facility] [id number] Note to Pharmacy: D/C 50 mg daily 2. Generalized anxiety disorder -sertraline 100 mg daily monitor B/P education on all medications Medication Management and Follow-Up- Plan:- Schedule follow-up appointments every 2-3 months to monitor the patient's response to the medication regimen.- Reinforce the importance of avoiding recreational drug use due to potential neurotoxicity and interactions with prescribed medications. F41.1: Generalized anxiety disordermonitor 3. Primary insomnia -Melatonin 10 mg as neededseen sleep specialist CPAP and educated on using hyrdaoxF15.01: Primary insomnia 4. Attention deficit hyperactivity disorder, combined type -hx cardiac stent 07/2020 for Irma 2 TEST RESULT REVIEWED No RX EFWVHA67.2: Attention-deficit hyperactivity disorder, combined type 5. Long-term drug zuqxcljT38.899: Other intermediate accountant (current) drug therapy , Preventing Depression From Coming Back: Care Instructions material was published, Learning About Depression Screening material was published, Seasonal Affective Disorder: Care Instructions material was published Generalized anxiety disorder Generalized Anxiety Disorder: Care Instructions material was published, Learning About Anxiety Disorders material was published Primary insomnia Insomnia: Care Instr uctions material was published, Learning About Sleeping Well material was published Attention-deficit hyperactiv ity disorder, combined type Learning About Attention Deficit Hyperac tivity Disorder (ADHD) in Adults material was published Other intermediate accountant (current) drug therapy M edication Refill: Care Instructions material was published Other Sertraline Oral Tabl et (SERTRALINE - ORAL) material was published Next Appt Details Follow Up: 3 Months, Reason: f/u rx Provider Name:Bree Wilber , 06/23/2024 04:15:00 PM, [address], [facility] [address], [place], [address], Progress Notes * DEBORAH DURANOB:1960 (63 yo F)Acc No.[id number]:09/18/2023 Patient: SABRINA CORTES Provider: SERGIO DAVENPORT :1960 A ge:63 Y S ex:Female Date:09/18/2023 Address:[address] [place], [place] [id number] Subjective: * Chief Complaints: * 1 . F/u rx. * HPI: H istory of Presenting Problem: ADHD DiagnosisReported by alpesh scott.Onset: a dulthood ADHD inattention d oes not listen when spoken to directly; l oses things necessary for tasks or activities; e asily distracted by extraneous stimuli ADHD Associated Symptoms Hyperactivity: O ften fidgets with or taps hands or feet, or squirms in seat. ( sometimes); I s often on the go acting as if driven by a motor .; e xcessive talking; b lurts out answers before questions have been completed Timing of Symptoms: Context: l ess depression; less aruging; less anxiety; no financial problems; o ngoing cognitive distortions; u nable to set limits with obligationsNotes:sister, great nephew and nephew ADHDno ADHD patientdaughter ADHD Anxiety symptomsReported by alpseh scott.Associated Symptoms: difficulty controlling worry; not easily fatigue; restlessness; no irritability; no difficulty swallowing; no excessive sweating; no palpitations; no shortness of breath; no diarrhea; no muscle tension; no muscle aches; no trembling; no twitching; no headaches; no sleep disturbances; no hyperarousal; no nightmares; no startle response; no night sweats; no intrusive thoughts; no avoidant behavior; no hypervigilence; no flashback syndrome; d ifficulty concentrating; sleep apnea and not using CPAP: Follow up depression, anxiety chronic since last visit reported depression and anxiety been rough last 6 weeks and life of foster daughter she started visit with her dad and they had to treat her dad x2 and can not go back until treated again, for bed bugs, this 3x she had them from his house, patient case coordinator picks her up and visits at library and my house fine then I got scabies from client and tx for it, I saw derm for it and Urgent care and tx, I need dental work done and infection, having 3 teeth removed and bone graft and sinus lift and bridge lift and d epression and anxiety over everything is off roof with her dad issues, I set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
--- OUTSIDE RECORDS SUMMARY | 2024-06-20 14:53 | XMS_ITS | Encounter Summary ---
Author Organization [facility] Healthcare Address [address] [place] [address] Care Team Providers Care Carpenter Supervisor [employer] Name Role Phone Talia Ball Primary Care Provider [phone] Bree Ballesteros NP Unavailable [phone] Fiona Brandon MD Unavailable Reason for Referral * Diagnostic Imaging (Routine) - Authorized Specialty Diagnoses / Procedures Referred By Contac t Referred To Contact Diagnoses Breast cancer screening by mammogram Procedures Screening Mammogram Bilateral W Oli Talia Ball PA [address] [address] Phone: tel: fax: External Order Referral ID Status Reason Start Date Expiration Date V isits Requested Visits Authorized [id number] Authorized 06/20/2024 07/20/2025 1 1 Reason for Visit * Reason Onset Date Comments Additional Services Or Orders 06/20/2024 Encounter Details Date Type Department Care Team (Late st Contact Info) Description 06/20/2024 Telephone [facility] Family Medicine [address] [facility] [address] [place] [phone] Talia Ball PA [address] [facility] [address] [place] [address] Additional Services Or Orders Social History Tobacco Use Types Packs/Day Years [...] on file Legal 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 condition/symptom, date of COVID exposure if applicable) Annual exam Details Regarding Additional Services (e.g. type of home health, type of equipment, type of test, etc.): Mammogram Where will services be performed? (if outside of the practice, facility name, address, phone/fax offacility): [facility] [address] [facility] [address] [place], [place] [id number] Fax- [phone] Additional Comments: Patient is requesting the order be submitted today therefore she can get the mammogram on Sunday before her insurance is cancelled. Sending high priority. Does message need to be routed? Yes-Action Needed documented in this encounter Plan of Treatment Scheduled Orders Name Type Priority Associated Diagnoses Orde r Schedule Screening Mammogram Bilateral W Oli Imaging Schedule Routine, Read Routine (OP Routine) Breast cancer screening by mammogram Expected: 06/20/2024, Expires: 06/20/2025 documented as of this encounter Visit Diagnoses Diagnosis Breast cancer screening by mammogram- Primary documented in this encounter Care Teams Carpenter Supervisor [employer] Relationship Specialty Start Date End Date Talia Ball PA [address] [facility] [address] [place] [address] PCP - General Internal Medicine 07/29/18 [place] [id number] [facility] [address] [place] [address] Nurse Practitioner [employer] Director 03/06/24 Fiona Brandon MD [address] [place] [address] [address] [place] [address] Referring Physician Interventional Cardiology 04/01/24 documented as of this encounter
--- OUTSIDE RECORDS SUMMARY | 2024-06-20 14:54 | XMS_ITS | Clinical Summary ---
Author Organization [facility] Address [address] [place] [address] Care Team Providers Care Knot Picker Cloth Name Role Phone Loly Ball Primary Care Provider [phone] Bree Ballesteros NP Unavailable [phone] Fiona Brandon MD Unavailable Allergies Active Allergy Reactions Criticality Noted Date Comments Amoxicillin Hives Medium Reaction: Hives, Cephalexin Hives,Itching,Redness Medium 07/17/2011 Erythromycin Hives Medium Penicillins Hives Medium Medications magnesium oxide (MAG-OX) 400 mg (241.3 mg elemental magnesium) tablet Take 1 tablet (400 mg total) by mouth daily 90 tablet 1 01/08/20 20 Active vitamin b complex tablet Take 1 tablet by mouth daily 90 tablet 1 02/22/20 20 Active melatonin 5 mg tablet, sublingual Place 10 mg under the tongue nightly as needed Active sertraline (ZOLOFT) 100 mg tablet Take 1 tablet (100 mg total) by mouth daily 90 tablet 2 07/18/19 22 Active Additional Information Patient taking differently: 50 mgoral Daily, Informant: Self, Reported on 06/19/2024 nitroglycerin (NITROSTAT) 0.4 mg SL tabletIndicat ions:Coronary artery disease involving [place] coronary artery of skull [place] heart without angina pectoris,Othe r chest pain Place 1 tablet (0.4 mg total) under the tongue every 5 (five) minutes as needed for chest pain 25 tablet 3 11/21/19 23 Active Dexcom G7 Sensor device 1 Device continuously . Change every 10 days. E11.65 10 each 3 11/13/19 24 Active cholecalcifer ol (D3-2000) 2000 unit capsule Take 1 capsule (2,000 Units total) by mouth nightly Active insulin lispro (HumaLOG, ADMELOG) 100 unit/mL pen for injection Inject under the skin 4 (four) times a day as needed Active docusate sodium (COLACE) 100 mg capsuleIndica tions:constip ation Take 1 capsule (100 mg total) by mouth 2 (two) times a day 60 capsule 04/09/19 25 Active lidocaine (LIDODERM) 5 % Place 1 patch on the skin daily Remove & discard patch within 12 hours or as directed by MD. 30 patch 04/09/19 25 Active cyclobenzapri ne (FLEXERIL) 5 mg tablet Take 1 tablet (5 mg total) by mouth 3 (three) times a day as needed for muscle spasms 90 tablet 04/09/19 25 Active tirzepatide (Mounjaro) 5 mg/0.5 mL pen injector injection Inject 0.5 mL (5 mg total) under the skin every 7 days E11.65 6 mL 4 06/04/19 25 Active TRESIBA 200 unit/mL (3 mL) pen for injection Inject 0.13 mL (26 Units total) under the skin daily E11.65 30 mL 4 06/04/19 25 Active rosuvastatin (CRESTOR) 40 mg tablet Take 1 tablet (40 mg total) by mouth daily 90 tablet 2 06/17/[address] (PROTONIX) 40 mg EC tablet Take 1 tablet (40 mg total) by mouth daily 90 tablet 2 06/17/19 25 Active clopidogreL (PLAVIX) 75 mg tabletIndicat ions:Coronary artery disease involving [place] coronary artery of [place] heart without angina pectoris Take 1 tablet (75 mg total) by mouth daily DO NOT RESUME TAKING UNTIL 04/22/24. 90 tablet 2 06/17/19 25 Active fluticasone propionate (FLONASE) 50 mcg/actuation nasal spray Use 1 spray(s) in each nostril once daily 16 g 3 12/30/19 22 025 Discontinued(T herapy completed) pantoprazole DR (PROTONIX) 40 mg EC tablet Take 1 tablet by mouth once daily 90 tablet 3 12/19/19 23 025 Discontinued(R eorder) metFORMIN (GLUCOPHAGE) 500 mg tablet TAKE 2 TABLETS BY MOUTH ONCE DAILY WITH BREAKFAST 180 tablet 2 11/22/19 24 025 Discontinued(T herapy completed) tirzepatide (Mounjaro) 5 mg/0.5 mL pen injector Inject 5 mg under the skin every 7 days E11.65 6 mL 4 02/20/20 24 025 Discontinued(R eorder) TRESIBA 200 unit/mL (3 mL) pen for injection Inject 0.13 mL (26 Units total) under the skin daily E11.65 30 mL 4 02/20/20 24 025 Discontinued(R eorder) lisinopriL (PRINIVIL,ZES TRIL) 20 mg tabletIndicat ions:Hyperten jolly associated with diabetes (HCC) Take 1 tablet by mouth once daily 90 tablet 03/06/20 24 025 Discontinued(T herapy completed) rosuvastatin (CRESTOR) 40 mg tablet Take 1 tablet (40 mg total) by mouth daily 03/09/20 24 025 Discontinued(R eorder) acetaminophen 500 mg capsule Take 2 capsules (1,000 mg total) by mouth every 6 (six) hours as needed for pain 04/09/19 025 Discontinued(T herapy completed) clopidogreL (PLAVIX) 75 mg tabletIndicat ions:Coronary artery disease involving [place] coronary artery of [place] heart without angina pectoris Take 1 tablet (75 mg total) by mouth daily DO NOT RESUME TAKING UNTIL 04/22/24. 04/22/19 25 025 Discontinued(R eorder) oxyCODONE (ROXICODONE) 5 mg immediate release tabletIndicat ions:Pain Take 1 tablet (5 mg total) by mouth every 8 (eight) hours as needed for pain 21 tablet 05/29/19 25 025 Discontinued Active Problems Patient Care Coordination No te Formatting of this note migh t be different from the original. CAD for BIC Problem Noted Date Diagnosed Date Cervical disc disorder with myelopathy of mid-cervical region 03/10/2024 Assessment & Plan (04/27/2024 11:10 PM WELT MAKER): Status post C4-7 ACDF on April [address] Cintron office at [facility] Continue per their office for postop management. At this point she does not appear to have any respiratory urinary or active infections. Reviewed signs and symptoms and problems and she will call if she has any concerns. Assessment & Plan (04/12/2024 8:46 PM WELT MAKER): Patient has neck surgery scheduled with Dr. Butler at [facility] next week. FMLA paperwork has been completed. Advised patient I am unable to complete half-way disability paperwork as she is not disabled. She may discuss with Neurosurgeon regarding post-op paperwork/plan. Class 1 obesity due to exces s calories with serious comorbidity and body mass index (BMI) of 31.0 to 31.9 in adult 03/09/2024 Assessment & Plan (04/02/2024 1:43 PM WELT MAKER): Discussed the patient's BMI. The BMI is above average. BMI management plan is completed. BMI Follow-up includes: nutrition counseling, exercise counseling and education provided. Assessment & Plan (03/09/2024 8:52 PM WELT MAKER): Discussed the patient's BMI. The BMI is above average. BMI management plan is completed. BMI Follow-up includes: nutrition counseling, exercise counseling and education provided. BMI 32.0-32.9,adult 02/29/2024 Assessment & Plan (02/29/2024 7:23 AM WELT MAKER): Discussed the patient's BMI. The BMI is above average. BMI management plan is completed. BMI Follow-up includes: nutrition counseling, exercise counseling and education provided. Cervical radiculopathy 01/09/2024 Cervical stenosis of spine 01/09/2024 Assessment & Plan (03/09/2024 8:52 PM WELT MAKER): Patient continues to see Dr. Cardenas as at [facility] Neurosurgery. Per patient she is planning surgery probably in 27 March. She is currently seeing Dr. Sneed to pursue pain management options prior to surgery Radicular pain of right upper extremity 12/30/19 Assessment & Plan (12/30/2023 8:47 PM CDT): Patient with radicular pain from the cspine into the right arm. She can only find relief with her arm internally rotated above her head Recommend to start with an xray. Start PT. If symptoms persist, I am concerned about a cervical nerve root involvement so an MRI may become necessary. Tyelnol, topicals like lidocaine patches, voltaren gel etc. Will send cyclobenzaprine to use hs prn. Dexcom continuous glucose monitoring device 10/25 Assessment & Plan (06/03/2024 2:24 PM CDT): Continuous glucose monitor (cgm) applied from 05/21/2024 to 06/03/2024 This device was placed for monitor and treatment of blood sugar. Interpretation of data- average glucose 168. In target range 71%. 0 hypoglycemia. 29% hyperglycemia Assessment & Plan (02/20/2024 2:01 PM WELT MAKER): Continuous glucose monitor (cgm) applied from 02/07/2024 to 02/20/2024 This device was placed for monitor and treatment of blood sugar. Interpretation of data- average glucose 167. In target range 71%. 0 hypoglycemia. 29% hyperglycemia Assessment & Plan (11/13/2023 11:13 AM CDT): Continuous glucose monitor (cgm) applied from 10/31/2023 to 11/13/2023 This device was placed for monitor and treatment of blood sugar. Interpretation of data- average glucose 269. In target range 13%. 0 hypoglycemia. 87% hyperglycemia Tooth infection 09/09/2023 Assessment & Plan (10/07/2023 11:31 PM CDT): Patient with multiple tooth issues. Has had an abscess. Been on antibiotics and this seems to have resolved. States she will have multiple dental appointments over the next year. Has a tooth to be pulled on October 15. Assessment & Plan (09/09/2023 8:34 PM CDT): Stressed importance of her seeing her dentist and staying ahead of these teeth infections as these infections can contribute to longstanding problems including uncontrolled diabetes and cardiac issues sepsis etc.. She states she was just on antibiotic and will be having a tooth pulled in September Hypertension associated with diabetes 07/15/2023 Assessment & Plan (03/09/2024 8:51 PM WELT MAKER): Bp is stable/in acceptable range for any co-morbidities. Encouraged to limit sodium intake and exercise for weight control. Stressed importance of continued A1c control to minimize the medical terminologist effects of diabetes. Bring accuchecks to office when instructed to do so. Check A1c about every 3-6 months. Take medication as prescribed. Get annual eye exam. Encouraged SHUKRI/Statin if able to tolerate. Encouraged weight control and encouraged diabetic diet and exercise. Continue lisinopril 20 Diabetes is managed by Coco Zamudio nurse practitioner. Assessment & Plan (02/20/2024 2:01 PM WELT MAKER): This is a chronic condition which is at goal. Goal is less than 140/90 Continue lisinopril Encouraged to monitor weight and B/P at home. Assessment & Plan (11/13/2023 11:16 AM CDT): This is a chronic condition which is at goal. Goal is less than 140/90 Continue lisinopril Encouraged to monitor weight and B/P at home. Encouraged to void caffeine and excessive alcohol consumption as this will elevate B/P Assessment & Plan (10/07/2023 11:35 PM CDT): Stressed importance of continued A1c control to minimize the medical terminologist effects of diabetes. Bring accuchecks to office when instructed to do so. Check A1c about every 3-6 months. Take medication as prescribed. Get annual eye exam. Encouraged SHUKRI/Statin if able to tolerate. Encouraged weight control and encouraged diabetic diet and exercise. Patient is still struggling with getting her diabetes controlled. She is still struggling with taking her medications as instructed. Restarted the Ozempic. Currently at 0.25 mg and will increase to 0.5 as she completes this packaging. Continue metformin 500 mg 2 tablets with breakfast. She is on Levemir 25 units and doing Humalog based on her carbs. She restarted the continuous glucose monitoring but she is having difficulty with it falling off. Inquired about alternatives and recommend we wait until she sees nurse practitioner Coco Zamudio as she will be able to help coordinate this much better than I am. Assessment & Plan (07/22/2023 8:52 PM CDT): Bp is stable/in acceptable range for any co-morbidities. Encouraged to limit sodium intake and exercise for weight control. Insert lisinopril 20 H/O heart artery stent 11/20/2022 On clopidogrel therapy 11/20/2022 Ulcer of left foot, limited to breakdown of skin 10/10/2022 Assessment & Plan (10/11/2022 11:42 PM CDT): Instructed to use mole skin or corn padsto help alleviate pressure of the area. She may use triple antibiotic ointment on the area. Discussed to need for adequate glycemic control to assist with healing and preventing diabetic foot ulcers. Referral to podiatry. Call if sxs worsen or unable to get in with podiatry. Breast cancer screening by mammogram 07/14/2022 Assessment & Plan (06/02/2023 5:01 PM WELT MAKER): Mammogram order provided Assessment & Plan (07/14/2022 3:36 PM CDT): Mammogram order provided Urinary tract infection without hematuria 2022 Assessment & Plan (07/04/2022 11:18 AM CDT): Pt presents with dysuria. Urine dip completed. Send urine culture. Antibiotic to pharmacy. Reviewed bladder care. Dysuria 07/04/2022 Assessment & Plan (07/04/2022 11:18 AM CDT): Pt presents with dysuria. Urine dip completed. Send urine culture. Antibiotic to pharmacy. Reviewed bladder care. Poor compliance with medication 01/23/2022 Assessment & Plan (06/02/2023 4:56 PM WELT MAKER): Patient has had very poor compliance with medication. She understands the importance and just struggles with doing things consistently. Encouraged counseling and tight control of her mental health. She has all of her medications available and has getting back to using the continuous glucose monitor and is going to work on using medications as prescribed Assessment & Plan (10/10/2022 9:21 AM CDT): Patient with poor compliance over the last couple months with her medication and device use. Stressed the importance of following medication recommendations to decrease the risk of poor outcomes with her diabetes. We will try switching to Rybelsus as a daily pill instead of weekly injectable in order to help patient with remembering to take the medication. Assessment & Plan (01/23/2022 9:42 AM CDT): Patient with poor compliance over the last couple months with her medication and device use. Stressed the importance of following medication recommendations and to use her CPAP as instructed to decrease the risk of poor outcome. She voices understanding and will call if she needs assistance from us. Diastolic dysfunction 07/01/2021 Obstructive sleep apnea 06/30/2021 Assessment & Plan (07/14/2022 3:35 PM CDT): Continue CPAP per Dr. Lozada Assessment & Plan (06/29/2022 3:46 PM CDT): Patient will continue CPAP therapy at 5-15 cm water pressure. I did instruct the patient that she should wear the CPAP machine at least 4 hours a night on 70% of the nights to feel the benefits and be compliant with CPAP therapy. I also provided the patient with a nasal pillow mask. [employer] was [employer] and the patient would like to use [employer] if possible. She does have [employer] health insurance now. Assessment & Plan (01/23/2022 9:41 AM CDT): Patient is not wearing CPAP. She states the mask is uncomfortable. Encouraged her to contact Dr. Lozada's office to get a new order for a mask. Stressed the importance of treating her MEAGAN as untreated MEAGAN increases risk of complications. She voices understanding Assessment & Plan (09/11/2021 10:22 AM CDT): Continue CPAP. She states she has the needed supplies Assessment & Plan (07/17/2021 9:34 PM CDT): Encouraged regular use. States she ordered a new mask. Assessment & Plan (06/30/2021 9:28 AM CDT): I did send an order to [employer] to show the patient variety of mask and to send her a chin strap. The patient states that she wants to try to CPAP again. I did inform the patient that if the pressures feel too strong call back in the pressures can be changed. The patient verbalized understanding. Chest pain 06/11/2021 Assessment & Plan (07/17/2021 9:35 PM CDT): Appears after the cardiac workup that her chest pain was not cardiac related. Still strongly encouraged follow-up with Cardiology in 1-2 weeks as instructed. If symptoms reoccur she is to follow up immediately Generalized anxiety disorder 01/23/2021 Assessment & Plan (09/11/2021 10:22 AM CDT): Continue Zoloft Hemorrhoids 01/15/2021 Assessment & Plan (01/15/2021 8:20 PM CDT): Encourage fiber exercise and water. Analpram sent to pharmacy. She is to follow- up if symptoms worsen do not resolve or she starts to see blood swelling in her stool. BMI 31.0-31.9,adult 01/13/2021 Assessment & Plan (06/16/2024 11:43 AM CDT): Discussed the patient's BMI. The BMI is above average. BMI management plan is completed. BMI Follow-up includes: nutrition counseling, exercise counseling and education provided. Assessment & Plan (04/02/2024 1:43 PM WELT MAKER): Discussed the patient's BMI. The BMI is above average. BMI management plan is completed. BMI Follow-up includes: nutrition counseling, exercise counseling and education provided. Assessment & Plan (01/13/2021 7:30 AM CDT): Obesity is unchanged. Discussed the patient's BMI. The BMI is above average. BMI management plan is completed. BMI Follow-up includes: nutrition counseling, exercise counseling and education provided. Other chest pain 01/05/2021 Abdominal pain 11/14/2020 Assessment & Plan (11/14/2020 8:28 PM CDT): Intermittent pain -- Continue PPI Check Amylase and lipase as on ozempic If pain increases, will consider imaging. Fatigue 08/09/2020 Assessment & Plan (04/30/2022 8:57 PM WELT MAKER): Probably multifactorial. Check labs and followup to re-evaluate Assessment & Plan (08/09/2020 5:07 PM CDT): Probably multifactorial. Check labs and followup to re-evaluate Coronary artery disease invo lving skull [place] coronary artery of [place] heart with unstable angina pectoris 08/04/2020 Overview (08/09/2020): Left Heart Cath done 07/30/2020 IMPRESSION 1. 90%lesion in the midLAD status post placment of a [id number] doyle drug-eluting stent proxillay post dilated to 3.5 Patient was instructed to continue 1. [id number] indefinitiely 2. Continue Plavix 75mg x at least 1 year 3. Increase crestor to 20mg to achieve LD below 70 4. MagOx 400mg daily Assessment & Plan (03/09/2024 8:51 PM WELT MAKER): Continue per Dr. Jimenez. Continue with Plavix and statin Assessment & Plan (06/02/2023 5:06 PM WELT MAKER): Managed by Dr. Jimenez. Continue statin Plavix and aspirin. Assessment & Plan (07/14/2022 3:35 PM CDT): Continue per Dr. Jimenez patient is on statin and Plavix Assessment & Plan (01/23/2022 9:41 AM CDT): Patient is on beta-lana Plavix statin. Stressed importance of medication compliance to mitigate repeat event. Assessment & Plan (09/11/2021 10:22 AM CDT): Continue per Cardiology. She is on aspirin, Plavix and statin. Assessment & Plan (05/28/2021 9:42 PM WELT MAKER): Continue per Dr. Jimenez continue statin Plavix and aspirin and managed blood pressure. Assessment & Plan (01/15/2021 8:18 PM CDT): Continue per Dr. Jimenez with current plan. Patient is on aspirin and nitro and statin. Assessment & Plan (11/14/2020 8:10 PM CDT): Continue current plan and follow with Dr. Brandon Assessment & Plan (08/09/2020 5:03 PM CDT): Continue per Cardio. On ASA and statin and Plavix Trigger ring finger of right hand 01/10/2020 Assessment & Plan (01/10/2020 10:17 AM CDT): This is a significant, separately identifiable problem that was evaluated and managed on the same day as the wellness exam Refer to Ortho for further evaluation/management Hypomagnesemia 05/03/2019 Assessment & Plan (08/09/2020 5:04 PM CDT): Continue magnesium supplementation. Will recheck labs. Assessment & Plan (01/10/2020 10:19 AM CDT): Recheck labs. Assessment & Plan (05/03/2019 11:29 PM WELT MAKER): supplement Type 2 diabetes mellitus wit hout complication, with long-term current use of insulin 08/01/2018 Assessment & Plan (02/20/2024 2:00 PM WELT MAKER): This is a chronic condition which is at goal . Goal is less than 7%. Personally reviewed most recent A1c - Lab Results Component Value Date HGBA1C 7.0 02/20/2024 Personally reviewed POC blood sugar- at goal of 80-180 Lab Results Component Value Date POCGLU 161 02/20/2024 Medication- Continues tresiba U200 25 units daily, Continue metformin 500mg- 2 tablets 1000mg total daily am. Increase mounjaro 5mg weekly Monitor blood sugar continuously with cgm. Encouraged annual eye exam. Monofilament foot exam completed. Protective senses-intact eGFR- 120 Kidney function-at goal Urine microalbumin/creatinine ratio - slightly elevated. Goal is <30 Continue lisinopril Assessment & Plan (11/13/2023 11:15 AM CDT): This is a chronic condition which is uncontrolled, not at goal . Goal is less than 7%. Personally reviewed most recent A1c - Lab Results Component Value Date HGBA1C 8.6 11/13/2023 Personally reviewed POC blood sugar- not at goal of 80-180 Lab Results Component Value Date POCGLU 285 11/13/2023 Medication- stop levemir, start tresiba U200 20 units daily, continue lispro 15- 20 units 3 times/day prior to meals. Continue metformin 500mg- 2 tablets 1000mg total daily am. stop ozempic, start mounjaro 2.5mg weekly. Monitor blood sugar continuously with freestyle Anil 2 cgm. We will switch to Dexcom 7 Encouraged annual eye exam. Monofilament foot exam completed. Protective senses intact eGFR- 72 Kidney function-normal Urine microalbumin/creatinine ratio - close to goal. Goal is <30 Continue lisinopril Assessment & Plan (11/13/2023 11:13 AM CDT): >>ASSESSMENT AND PLAN FOR LONG-TERM INSULIN USE IN TYPE 2 DIABETES (HCC) WRITTEN ON 02/23/2020 7:48 AM BY LOLY BALL PA Continue. Monitor closely as the ozempic continues to become more effective, may require less basaglar Assessment & Plan (11/13/2023 11:13 AM CDT): >>ASSESSMENT AND PLAN FOR LONG-TERM INSULIN USE IN TYPE 2 DIABETES ([facility]) WRITTEN ON 01/23/2022 9:39 AM BY LOLY BALL PA Continue insulin. Assessment & Plan (09/09/2023 8:35 PM CDT): Stressed importance of continued A1c control to minimize the half-way effects of diabetes. Bring accuchecks to office when instructed to do so. Check A1c about every 3-6 months. Take medication as prescribed. Get annual eye exam. Encouraged SHUKRI/Statin if able to tolerate. Encouraged weight control and encouraged diabetic diet and exercise. Increase levemir 25 Continue Humalog based on carb counting which she states she has been doing for years. Continue metformin 500 mg. Discussed the Ozempic. Advised this probably did not cause the rash. Encouraged her to restart it. Will have to start at the low dose of 0.25 x2 weeks and then increase to 0.5 weekly. Sample start her given and new prescription sent to pharmacy. 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 Assessment & Plan (07/22/2023 8:52 PM CDT): Stressed importance of continued A1c control to minimize the half-way effects of diabetes. Bring accuchecks to office when instructed to do so. Check A1c about every 3-6 months. Take medication as prescribed. Get annual eye exam. Encouraged SHUKRI/Statin if able to tolerate. Encouraged weight control and encouraged diabetic diet and exercise. A1c has not been regularly controlled. Discussed medication adjustments and will increase the Ozempic to 1 mg weekly. Continue the Levemir 20 and Humalog with meals and metformin. Recheck A1c in mid to late July. Strongly encouraged to monitor diet and exercise Assessment & Plan (11/13/2023 11:13 AM CDT): >>ASSESSMENT AND PLAN FOR UNCONTROLLED DIABETES MELLITUS WITH HYPERGLYCEMIA, WITH LONG-TERM CURRENT USE OF INSULIN ([facility]) ([facility]) WRITTEN ON 06/02/2023 5:01 PM BY LOLY BALL PA Stressed importance of continued A1c control to minimize the medical terminologist effects of diabetes. Bring accuchecks to office when instructed to do so. Check A1c about every 3-6 months. Take medication as prescribed. Get annual eye exam. Encouraged SHUKRI/Statin if able to tolerate. Encouraged weight control and encouraged diabetic diet and exercise. Patient has been inconsistent with her medication. Fasting blood sugar this morning was 360. She is getting back into using her continuous glucose monitor for better control. Will continue the Ozempic 0.5 weekly. Levemir 20 units HS and Humalog with meals as a sliding scale which usually is 15-20 units. Encouraged her to record her readings and work hard and getting her back under control with consistent medication use >>ASSESSMENT AND PLAN FOR LONG-TERM INSULIN USE IN TYPE 2 DIABETES ([facility]) WRITTEN ON 06/02/2023 4:54 PM BY LOLY BALL PA Patient has been prescribed insulin Assessment & Plan (01/28/2023 11:09 PM WELT MAKER): Stressed importance of continued A1c control to minimize the half-way effects of diabetes. Bring accuchecks to office when instructed to do so. Check A1c about every 3-6 months. Take medication as prescribed. Get annual eye exam. Encouraged SHUKRI/Statin if able to tolerate. Encouraged weight control and encouraged diabetic diet and exercise. A1c is better but still not fully at goal. Continue Ozempic 0.5 weekly. She admits she has missed a couple of weeks. She is on Levemir 20 units and Humalog with meals. Keep follow-up in a few months to reassess that A1c but strongly encouraged to work hard at taking medications as prescribed to avoid long-term sequela of untreated or undertreated diabetes. Assessment & Plan (10/10/2022 9:18 AM CDT): Stressed importance of continued A1c control to minimize the medical terminologist effects of diabetes. This includes but is not limited to diabetic diet, exercise, and continuation of medication as prescribed. Encouraged SHUKRI/Statin if able to tolerate. Discussed the importance of annual diabetic eye exam and foot exams. We will continue to check A1C approximately every 3-6 months. Bring accuchecks to the office when asked to do so. Plan is to discontinue Ozempic as patient has difficulties remembering the once weekly injection. We will transition to Rybelsus 7mg for 4 weeks then increase to 14 mg. Complete CMP in four weeks to evaluate electrolytes. Return to office in 6 weeks to re-evaluate progress. Referral to podiatry has been made. Assessment & Plan (11/13/2023 11:13 AM CDT): >>ASSESSMENT AND PLAN FOR UNCONTROLLED DIABETES MELLITUS WITH HYPERGLYCEMIA, WITH LONG-TERM CURRENT USE OF INSULIN ([facility]) ([facility]) WRITTEN ON 07/14/2022 3:31 PM BY LOLY BALL, PA Stressed importance of continued A1c control to minimize the medical terminologist effects of diabetes. Bring accuchecks to office when instructed to do so. Check A1c about every 3-6 months. Take medication as prescribed. Get annual eye exam. Encouraged SHUKRI/Statin if able to tolerate. Encouraged weight control and encouraged diabetic diet and exercise. She is finally at goal. Last A1c was 8.0. Encouraged to continue work on getting it down even a little bit further. Tolerating the Ozempic. Still strongly encouraged her to make sure she takes it weekly as instructed. On metformin 1 g in the a.m. Basaglar 20 and Humalog sliding scale with meals. Encouraged her as she is doing much better in keeping control. Recheck labs in 3-4 months >>ASSESSMENT AND PLAN FOR LONG-TERM INSULIN USE IN TYPE 2 DIABETES ([facility]) WRITTEN ON 07/14/2022 3:32 PM BY LOLY BALL, PA Stressed importance of continued A1c control to minimize the half-way effects of diabetes. Bring accuchecks to office when instructed to do so. Check A1c about every 3-6 months. Take medication as prescribed. Get annual eye exam. Encouraged SHUKRI/Statin if able to tolerate. Encouraged weight control and encouraged diabetic diet and exercise. She is finally at goal. Last A1c was 8.0. Encouraged to continue work on getting it down even a little bit further. Tolerating the Ozempic. Still strongly encouraged her to make sure she takes it weekly as instructed. On metformin 1 g in the a.m. Basaglar 20 and Humalog sliding scale with meals. Encouraged her as she is doing much better in keeping control. Recheck labs in 3-4 months Assessment & Plan (11/13/2023 11:13 AM CDT): >>ASSESSMENT AND PLAN FOR UNCONTROLLED DIABETES MELLITUS WITH HYPERGLYCEMIA, WITH LONG-TERM CURRENT USE OF INSULIN ([facility]) ([facility]) WRITTEN ON 09/11/2021 10:20 AM BY LOLY BALL, PA Stressed importance of continued A1c control to minimize the half-way effects of diabetes. Bring accuchecks to office when instructed to do so. Check A1c about every 3-6 months. Take medication as prescribed. Get annual eye exam. Encouraged SHUKRI/Statin if able to tolerate. Encouraged weight control and encouraged diabetic diet and exercise. Much improved A1c but still not at goal. Continue Ozempic 1 mg weekly metformin 1 g in the a.m. and insulin with Basaglar 20 units at bedtimes and her sliding scale for her Humalog. Strongly encouraged diet is this is going to really help get control. If still not at goal may consider increasing the Ozempic and or consider adding an SG LT >>ASSESSMENT AND PLAN FOR LONG-TERM INSULIN USE IN TYPE 2 DIABETES ([facility]) WRITTEN ON 09/11/2021 10:21 AM BY LOLY BALL PA Continue with insulin for tighter diabetes control Assessment & Plan (07/17/2021 9:33 PM CDT): Stressed importance of continued A1c control to minimize the medical terminologist effects of diabetes. Bring accuchecks to office when instructed to do so. Check A1c about every 3-6 months. Take medication as prescribed. Get annual eye exam. Encouraged SHUKRI/Statin if able to tolerate. Encouraged weight control and encouraged diabetic diet and exercise. Patient was still not doing great with diet. Unsure of her control. She is restarted the Ozempic is non 0.5 for the last 2-3 weeks. Doing metformin 1 g in the a.m. Basagla 20 and instilled in the sliding-scale Humalog. She will be due to recheck labs after August 01. Will await those results to determine additional change. Strongly encouraged dietary changes as well as increased activity level. Assessment & Plan (11/13/2023 11:13 AM CDT): >>ASSESSMENT AND PLAN FOR UNCONTROLLED DIABETES MELLITUS WITH HYPERGLYCEMIA, WITH LONG-TERM CURRENT USE OF INSULIN ([facility]) ([facility]) WRITTEN ON 05/28/2021 9:40 PM BY LOLY BALL PA Stressed importance of continued A1c control to minimize the medical terminologist effects of diabetes. Bring accuchecks to office when instructed to do so. Check A1c about every 3-6 months. Take medication as prescribed. Get annual eye exam. Encouraged SHUKRI/Statin if able to tolerate. Encouraged weight control and encouraged diabetic diet and exercise. Stressed importance of taking medication as prescribed and not going on and off of it and addition to using insulin consistency so that we can get good tight control of her diabetes to avoid long-term sequela. She is to restart the Ozempic at 0.25 x 4 weeks then increase 2.5 weekly. New prescription sent. She is to start taking her readings and monitor Accu-Cheks closely. She may restart the Basaglar at 20 but she may have to be cautious if she starts the Ozempic she sees that her sugars are getting below 140 fasting. Encouraged to monitor closely the consistency of taking her Humalog also. She is going to continue with the metformin 1 g b.i.d.. Encouraged to follow-up in 4 weeks to reassess and bring readings in with her. >>ASSESSMENT AND PLAN FOR LONG-TERM INSULIN USE IN TYPE 2 DIABETES ([facility]) WRITTEN ON 05/28/2021 9:41 PM BY LOLY BALL PA Stressed importance of continued A1c control to minimize the half-way effects of diabetes. Bring accuchecks to office when instructed to do so. Check A1c about every 3-6 months. Take medication as prescribed. Get annual eye exam. Encouraged SHUKRI/Statin if able to tolerate. Encouraged weight control and encouraged diabetic diet and exercise. Assessment & Plan (11/13/2023 11:13 AM CDT): >>ASSESSMENT AND PLAN FOR UNCONTROLLED DIABETES MELLITUS WITH HYPERGLYCEMIA, WITH LONG-TERM CURRENT USE OF INSULIN ([facility]) ([facility]) WRITTEN ON 01/15/2021 8:16 PM BY LOLY BALL PA Stressed importance of continued A1c control to minimize the medical terminologist effects of diabetes. Bring accuchecks to office when instructed to do so. Check A1c about every 3-6 months. Take medication as prescribed. Get annual eye exam. Encouraged SHUKRI/Statin if able to tolerate. Encouraged weight control and encouraged diabetic diet and exercise. Is tolerating the Ozempic and metformin well. Most recent A1c was 7.6. Continue current plan. >>ASSESSMENT AND PLAN FOR LONG-TERM INSULIN USE IN TYPE 2 DIABETES ([facility]) WRITTEN ON 01/15/2021 8:17 PM BY LOLY BALL PA Continue insulin for diabetes control Assessment & Plan (11/13/2023 11:13 AM CDT): >>ASSESSMENT AND PLAN FOR UNCONTROLLED DIABETES MELLITUS WITH HYPERGLYCEMIA, WITH LONG-TERM CURRENT USE OF INSULIN ([facility]) ([facility]) WRITTEN ON 11/14/2020 8:20 PM BY LOLY BALL PA Stressed importance of continued A1c control to minimize the half-way effects of diabetes. Bring accuchecks to office when instructed to do so. Check A1c about every 3-6 months. Take medication as prescribed. Get annual eye exam. Encouraged SHUKRI/Statin if able to tolerate. Encouraged weight control and encouraged diabetic diet and exercise. Continue Ozempic and Basaglar 20mg and prn humalog. She hasn't taken consistently as was out so recommend to take as instructed and recheck 90 days. >>ASSESSMENT AND PLAN FOR LONG-TERM INSULIN USE IN TYPE 2 DIABETES ([facility]) WRITTEN ON 11/14/2020 8:20 PM BY LOLY BALL PA Continue insulin Assessment & Plan (11/13/2023 11:13 AM CDT): >>ASSESSMENT AND PLAN FOR UNCONTROLLED DIABETES MELLITUS WITH HYPERGLYCEMIA, WITH LONG-TERM CURRENT USE OF INSULIN ([facility]) ([facility]) WRITTEN ON 08/09/2020 5:05 PM BY LOLY BALL PA Stressed importance of continued A1c control to minimize the half-way effects of diabetes. Bring accuchecks to office when instructed to do so. Check A1c about every 3-6 months. Take medication as prescribed. Get annual eye exam. Encouraged SHUKRI/Statin if able to tolerate. Encouraged weight control and encouraged diabetic diet and exercise. Still not at goal but improved from last draw. Continue current regimen with ozempic and Basaglar >>ASSESSMENT AND PLAN FOR LONG-TERM INSULIN USE IN TYPE 2 DIABETES ([facility]) WRITTEN ON 08/09/2020 5:03 PM BY LOLY BALL PA Continue insulin Assessment & Plan (11/13/2023 11:13 AM CDT): >>ASSESSMENT AND PLAN FOR UNCONTROLLED DIABETES MELLITUS WITH HYPERGLYCEMIA, WITH LONG-TERM CURRENT USE OF INSULIN ([facility]) ([facility]) WRITTEN ON 05/01/2020 3:12 PM BY LOLY BALL PA Stressed importance of continued A1c control to minimize the medical terminologist effects of diabetes. Bring accuchecks to office when instructed to do so. Check A1c about every 3-6 months. Take medication as prescribed. Get annual eye exam. Encouraged SHUKRI/Statin if able to tolerate. Encouraged weight control and encouraged diabetic diet and exercise. Significant improvement since last draw. Increase the Ozempic to 1mg/week. Monitor Basaglar use closely as will probably be able to decrease the use. Also monitor meals closely and adjust appropriately. Advised if increased ozempic brings readings down more but still requires a little basaglar, could consider SGLT addition to eliminate the need for insulin. Pt is interested and voices understanding. F.u 4 months to reasses. >>ASSESSMENT AND PLAN FOR LONG-TERM INSULIN USE IN TYPE 2 DIABETES ([facility]) WRITTEN ON 05/01/2020 3:13 PM BY LOLY BALL PA Monitor closely as increased GLP dose Assessment & Plan (11/13/2023 11:13 AM CDT): >>ASSESSMENT AND PLAN FOR UNCONTROLLED DIABETES MELLITUS WITH HYPERGLYCEMIA, WITH LONG-TERM CURRENT USE OF INSULIN ([facility]) ([facility]) WRITTEN ON 03/25/2020 12:18 AM BY LOLY BALL PA Stressed importance of continued A1c control to minimize the medical terminologist effects of diabetes. Bring accuchecks to office when instructed to do so. Check A1c about every 3-6 months. Take medication as prescribed. Get annual eye exam. Encouraged SHUKRI/Statin if able to tolerate. Encouraged weight control and encouraged diabetic diet and exercise. Not well controlled. Not taking insulin as instructed. Willing to consider Ozempic. No history of pancreatitis. Reviewed risks, benefit, alternatives, side effects and proper use. Demonstrated proper use in the office. Sample supplied. Followup in 4 weeks to check CMP and if tolerating. >>ASSESSMENT AND PLAN FOR LONG-TERM INSULIN USE IN TYPE 2 DIABETES ([facility]) WRITTEN ON 03/25/2020 12:19 AM BY LOLY BALL PA Advised to monitor as may need to decrease insulin use with addition of Ozempic. Reviwed plan for reduction if reading come down quickly. Assessment & Plan (11/13/2023 11:13 AM CDT): >>ASSESSMENT AND PLAN FOR UNCONTROLLED DIABETES MELLITUS WITH HYPERGLYCEMIA, WITH LONG-TERM CURRENT USE OF INSULIN ([facility]) ([facility]) WRITTEN ON 01/10/2020 10:20 AM BY LOLY BALL PA Stressed importance of continued A1c control to minimize the medical terminologist effects of diabetes. Bring accuchecks to office when instructed to do so. Check A1c about every 3-6 months. Take medication as prescribed. Get annual eye exam. Encouraged SHUKRI/Statin if able to tolerate. Encouraged weight control and encouraged diabetic diet and exercise. On metformin and insulin. Discussed importance of taking medications as prescribed. She admits she rarely takes her meal insulin. She also misses quite a few nights of her Lantus. Discussed other options including trying to wean down the insulin and consider an SGLT versus GLP with the metformin. She is hesitant as she admits she is not watching her sugars on a regular basis but will consider over the next few months. >>ASSESSMENT AND PLAN FOR LONG-TERM INSULIN USE IN TYPE 2 DIABETES ([facility]) WRITTEN ON 01/10/2020 10:19 AM BY LOLY BALL PA Continue insulin for DM control Assessment & Plan (11/08/2019 2:56 PM CDT): Stressed importance of continued A1c control to minimize the medical terminologist effects of diabetes. Bring accuchecks to office when instructed to do so. Check A1c about every 3-6 months. Take medication as prescribed. Get annual eye exam. Encouraged SHUKRI/Statin if able to tolerate. Encouraged weight control and encouraged diabetic diet and exercise. Refer to DM educator at [facility] to kick start her taking care of herself again. Assessment & Plan (09/21/2019 7:51 PM CDT): Stressed importance of continued A1c control to minimize the medical terminologist effects of diabetes. Bring accuchecks to office when instructed to do so. Check A1c about every 3-6 months. Take medication as prescribed. Get annual eye exam. Encouraged SHUKRI/Statin if able to tolerate. Encouraged weight control and encouraged diabetic diet and exercise. Work on tighter control. Assessment & Plan (11/13/2023 11:13 AM CDT): >>ASSESSMENT AND PLAN FOR UNCONTROLLED DIABETES MELLITUS WITH HYPERGLYCEMIA, WITH LONG-TERM CURRENT USE OF INSULIN ([facility]) ([facility]) WRITTEN ON 12/31/2018 10:01 PM BY LOLY BALL PA Stressed importance of continued A1c control to minimize the medical terminologist effects of diabetes. Bring accuchecks to office when instructed to do so. Check A1c about every 3-6 months. Take medication as prescribed. Get annual eye exam. Encouraged SHUKRI/Statin if able to tolerate. Encouraged weight control and encouraged diabetic diet and exercise. Discussed her diabetes at length. Her increased weight loss has made a very positive improvement with her A1c control. Discussed with her the benefits of the Victoza versus insulin. Reviewed that with her better control if she continues with the weight loss may be able to completely eliminate the insulin. Will start by stopping the NovoLog. Will restart the Victoza taking 1 injection as directed. She can increase back up to the 1.2 as tolerated. Recommend to decrease her Lantus to 5 units at bedtime and monitor her readings very carefully as reinstituting the Victoza will increase her chance of having a hypoglycemic event with that Lantus. If she notes that she is decreasing below about 120-130 with the fasting blood sugars she is to completely stop the Lantus. She voiced understanding and clear to with the plan. Will continue with the metformin a 1000 mg q.d. At this point but may be able to also decrease it. Discussed at length the Crestor and reviewed the benefits of being on a statin with the diagnosis of diabetes even with normal cholesterol levels. She is still very hesitant about starting the medication so will hold off until she follow up steps with her next visit so we are making multiple changes all at once. She is in agreement. >>ASSESSMENT AND PLAN FOR LONG-TERM INSULIN USE IN TYPE 2 DIABETES ([facility]) WRITTEN ON 12/31/2018 10:01 PM BY LOLY BALL PA See changes to insulin plan Assessment & Plan (11/13/2023 11:13 AM CDT): >>ASSESSMENT AND PLAN FOR UNCONTROLLED DIABETES MELLITUS WITH HYPERGLYCEMIA, WITH LONG-TERM CURRENT USE OF INSULIN ([facility]) ([facility]) WRITTEN ON 09/10/2018 9:55 PM BY LOLY BALL PA Stressed importance of continued A1c control to minimize the half-way effects of diabetes. Bring accuchecks to office when instructed to do so. Check A1c about every 3-6 months. Take medication as prescribed. Get annual eye exam. Encouraged SHUKRI/Statin if able to tolerate. Encouraged weight control and encouraged diabetic diet and exercise. Better control. Continue current plan >>ASSESSMENT AND PLAN FOR LONG-TERM INSULIN USE IN TYPE 2 DIABETES ([facility]) WRITTEN ON 09/10/2018 9:56 PM BY LOLY BALL PA Stressed importance of continued A1c control to minimize the half-way effects of diabetes. Bring accuchecks to office when instructed to do so. Check A1c about every 3-6 months. Take medication as prescribed. Get annual eye exam. Encouraged SHUKRI/Statin if able to tolerate. Encouraged weight control and encouraged diabetic diet and exercise. Assessment & Plan (11/13/2023 11:13 AM CDT): >>ASSESSMENT AND PLAN FOR UNCONTROLLED DIABETES MELLITUS WITH HYPERGLYCEMIA, WITH LONG-TERM CURRENT USE OF INSULIN ([facility]) ([facility]) WRITTEN ON 08/01/2018 8:58 AM BY LOLY BALL PA Stressed importance of continued A1c control to minimize the medical terminologist effects of diabetes. Bring accuchecks to office when instructed to do so. Check A1c about every 3-6 months. Take medication as prescribed. Get annual eye exam. Encouraged SHUKRI/Statin if able to tolerate. Encouraged weight control and encouraged diabetic diet and exercise. Encouraged to get A1c next week as will pass the 90 days. Will help determine if needs change in medications. Stressed taking medications as prescribed. >>ASSESSMENT AND PLAN FOR LONG-TERM INSULIN USE IN TYPE 2 DIABETES ([facility]) WRITTEN ON 08/01/2018 8:58 AM BY LOLY BALL PA See DM Type 2 diabetes mellitus with hyperlipidemia ([facility]) 08/01/2018 Assessment & Plan (04/27/2024 11:09 PM WELT MAKER): Stressed importance of continued A1c control to minimize the medical terminologist effects of diabetes. Bring accuchecks to office when instructed to do so. Check A1c about every 3-6 months. Take medication as prescribed. Get annual eye exam. Encouraged SHUKRI/Statin if able to tolerate. Encouraged weight control and encouraged diabetic diet and exercise. Encouraged patient to follow low fat/low chol diet like the Mediterranean diet. Increase good fats in the diet. Increase exercise. Monitor labs as needed. Continue Crestor 40, Mounjaro 5, Metformin and Tresiba 26 and Humalog with meals. Strongly encouraged her to get back in with [facility] for diabetes management. Assessment & Plan (02/20/2024 2:00 PM WELT MAKER): This is a chronic condition which is slightly elevated . Goal is LDL less than 70 Continue rosuvastatin Encouraged to eat healthy, include fresh fruits and vegetables daily and avoid eating fried foods more than once per week. Assessment & Plan (12/30/2023 8:48 PM CDT): Encouraged patient to follow low fat/low chol diet like the Mediterranean diet. Increase good fats in the diet. Increase exercise. Monitor labs as needed. Continue Crestor 40 Assessment & Plan (11/13/2023 11:16 AM CDT): This is a chronic condition which is at goal . Goal is LDL less than 70 Continue rosuvastatin Encouraged to eat healthy, include fresh fruits and vegetables daily and avoid eating fried foods more than once per week. Assessment & Plan (07/22/2023 8:52 PM CDT): Encouraged patient to follow low fat/low chol diet like the Mediterranean diet. Increase good fats in the diet. Increase exercise. Monitor labs as needed. Continue Crestor 40 Assessment & Plan (06/02/2023 4:54 PM WELT MAKER): Stressed importance of continued A1c control to minimize the medical terminologist effects of diabetes. Bring accuchecks to office when instructed to do so. Check A1c about every 3-6 months. Take medication as prescribed. Get annual eye exam. Encouraged SHUKRI/Statin if able to tolerate. Encouraged weight control and encouraged diabetic diet and exercise. Encouraged patient to follow low fat/low chol diet like the Mediterranean diet. Increase good fats in the diet. Increase exercise. Monitor labs as needed. Continue Crestor 40 Assessment & Plan (01/28/2023 11:09 PM WELT MAKER): Stressed importance of continued A1c control to minimize the half-way effects of diabetes. Bring accuchecks to office when instructed to do so. Check A1c about every 3-6 months. Take medication as prescribed. Get annual eye exam. Encouraged SHUKRI/Statin if able to tolerate. Encouraged weight control and encouraged diabetic diet and exercise. Encouraged patient to follow low fat/low chol diet like the Mediterranean diet. Increase good fats in the diet. Increase exercise. Monitor labs as needed. Continue statin Assessment & Plan (11/05/2022 6:41 PM CDT): Encouraged patient to follow low fat/low chol diet like the Mediterranean diet. Increase good fats in the diet. Increase exercise. Monitor labs as needed. Continue Crestor Assessment & Plan (10/10/2022 9:21 AM CDT): Discussed the risks of elevated cholesterol levels. Encouraged patient to follow low fat/low chol diet like the Mediterranean diet. Increase good fats in the diet. Increase exercise. Monitor labs as needed. Continue statin Assessment & Plan (07/14/2022 3:31 PM CDT): Encouraged patient to follow low fat/low chol diet like the Mediterranean diet. Increase good fats in the diet. Increase exercise. Monitor labs as needed. Continue statin Assessment & Plan (01/23/2022 9:39 AM CDT): This is a significant, separately identifiable problem that was evaluated and managed on the same day as the wellness exam Stressed importance of continued A1c control to minimize the medical terminologist effects of diabetes. Bring accuchecks to office when instructed to do so. Check A1c about every 3-6 months. Take medication as prescribed. Get annual eye exam. Encouraged SHUKRI/Statin if able to tolerate. Encouraged weight control and encouraged diabetic diet and exercise. Encouraged patient to follow low fat/low chol diet like the Mediterranean diet. Increase good fats in the diet. Increase exercise. Monitor labs as needed. Continue statin Patient has been noncompliant with her medications. She states she is just having difficulty keeping up with her stuff with her foster child. Stressed the importance that she must take her medications as instructed. Her lipids are back to where she is at risk for another blockage. She must take her Crestor 40 every day. She was also control her diabetes to mitigate the risk of cardiovascular complications due to uncontrolled diabetes. Will restart her Ozempic. Sample pen provided where she will do 0.25 weekly x4 weeks then increase to 0.5 mg. Prescription sent to the pharmacy for 0.5 mg. If she has difficulty or side effects with any of these medicines she is to call and not just stop them. She voices understanding. Assessment & Plan (09/11/2021 10:20 AM CDT): Encouraged patient to follow low fat/low chol diet like the Mediterranean diet. Increase good fats in the diet. Increase exercise. Monitor labs as needed. Continue Crestor 40 Assessment & Plan (07/17/2021 9:33 PM CDT): Encouraged patient to follow low fat/low chol diet like the Mediterranean diet. Increase good fats in the diet. Increase exercise. Monitor labs as needed. Continue statin Assessment & Plan (05/28/2021 9:41 PM WELT MAKER): Encouraged patient to follow fat/low chol diet like the Mediterranean diet. Increase good fats in the diet. Increase exercise. Monitor labs as needed. Continue Crestor Assessment & Plan (01/15/2021 8:16 PM CDT): Encouraged patient to follow fat/low chol diet like the Mediterranean diet. Increase good fats in the diet. Increase exercise. Monitor labs as needed. Continue Crestor Assessment & Plan (11/14/2020 8:26 PM CDT): Encouraged patient to follow fat/low chol diet like the Mediterranean diet. Increase good fats in the diet. Increase exercise. Monitor labs as needed. Continue statin Assessment & Plan (08/09/2020 5:03 PM CDT): Encouraged patient to follow fat/low chol diet like the Mediterranean diet. Increase good fats in the diet. Increase exercise. Monitor labs as needed. Continue statin Assessment & Plan (05/01/2020 3:12 PM WELT MAKER): Encouraged patient to follow fat/low chol diet like the Mediterranean diet. Increase good fats in the diet. Increase exercise. Monitor labs as needed. \ Assessment & Plan (03/25/2020 12:19 AM WELT MAKER): Encouraged patient to follow fat/low chol diet like the Mediterranean diet. Increase good fats in the diet. Increase exercise. Monitor labs as needed. Continue statin Assessment & Plan (02/23/2020 7:50 AM WELT MAKER): Continue the Ozempic. Recheck labs in mid March and .apr to reassess. Stressed importance of continued A1c control to minimize the half-way effects of diabetes. Bring accuchecks to office when instructed to do so. Check A1c about every 3-6 months. Take medication as prescribed. Get annual eye exam. Encouraged SHUKRI/Statin if able to tolerate. Encouraged weight control and encouraged diabetic diet and exercise. Encouraged patient to follow fat/low chol diet like the Mediterranean diet. Increase good fats in the diet. Increase exercise. Monitor labs as needed. Continue statin Assessment & Plan (01/10/2020 10:19 AM CDT): This is a significant, separately identifiable problem that was evaluated and managed on the same day as the wellness exam Restart crestor. Pt has supply at home. Reviewed the benefits of DM being on statin. Encouraged patient to follow fat/low chol diet like the Mediterranean diet. Increase good fats in the diet. Increase exercise. Monitor labs as needed. Assessment & Plan (11/08/2019 2:57 PM CDT): Encouraged patient to continue low fat/low chol diet. Continue exercise. Increase good fats in the diet. Monitor labs as needed. Assessment & Plan (05/03/2019 11:30 PM WELT MAKER): Encouraged patient to continue low fat/low chol diet. Continue exercise. Increase good fats in the diet. Monitor labs as needed. Encouraged to start taking statin daily to control lipids Assessment & Plan (12/31/2018 10:01 PM CDT): Encouraged patient to continue low fat/low chol diet. Continue exercise. Increase good fats in the diet. Monitor labs as needed. Encouraged statin but she wants to wait due to multiple med changes and she is concerned about risks with a statin. Assessment & Plan (09/10/2018 9:58 PM CDT): Not taking statin. Encouraged--will consider. Encouraged patient to continue low fat/low chol diet. Continue exercise. Increase good fats in the diet. Monitor labs as needed. Assessment & Plan (08/01/2018 8:58 AM CDT): Encouraged patient to continue low fat/low chol diet. Continue exercise. Increase good fats in the diet. Monitor labs as needed. Continue crestor Moderate episode of recurrent major depressive d isorder 08/01/2018 Assessment & Plan (04/27/2024 11:08 PM WELT MAKER): Continue Zoloft 100 mg daily Assessment & Plan (07/22/2023 8:52 PM CDT): Continue Zoloft 100. Continue counseling and encouraged to be on a consistent basis Assessment & Plan (06/02/2023 4:55 PM WELT MAKER): Continue Zoloft 100. Encouraged counseling Assessment & Plan (10/10/2022 9:20 AM CDT): Encouraged patient to re-start going to counseling. Offered her resources with names of local psychologists. Continue zoloft 100 mg. Assessment & Plan (07/14/2022 3:34 PM CDT): Continue Zoloft per psychiatrist Assessment & Plan (01/23/2022 9:40 AM CDT): Continue per psychiatrist. They upped her Zoloft 150 mg as she is been having increased stressors with her foster daughter. Assessment & Plan (09/11/2021 10:21 AM CDT): Continue with Zoloft 100 mg in counseling Assessment & Plan (07/17/2021 9:34 PM CDT): Continue Zoloft 100. Strongly encouraged her to continue counseling on a regular basis Assessment & Plan (05/28/2021 9:42 PM WELT MAKER): Continue per psychiatrist Assessment & Plan (01/15/2021 8:17 PM CDT): Patient is stable currently with her Zoloft. She would like to continue the same dose at this point. If her symptoms increase may consider transition away to another product. Assessment & Plan (11/14/2020 8:29 PM CDT): Continue zoloft Assessment & Plan (03/25/2020 12:20 AM WELT MAKER): Continue Zoloft and strongly encouraged to start counseling. Assessment & Plan (01/10/2020 10:20 AM CDT): Stable with the Zoloft Assessment & Plan (09/21/2019 7:52 PM CDT): Continue with psychiarist and counseling. Her mental health is impacting her physical concerns. Reviewed at [facility] she has been alcohol free for decades and the same daily control she has achieved with controlling her alcohol can fall over to her DM control and bingeeating/mental health concerns. Assessment & Plan (12/31/2018 10:03 PM CDT): Continue per psychiatrist Assessment & Plan (09/10/2018 9:56 PM CDT): Continue per psych Assessment & Plan (08/01/2018 8:59 AM CDT): Stable with the Zoloft Family history of malignant neoplasm of breast 0 08/09/2013 Overview (06/28/2016): FAMILY HX-BREAST MALIG Nondependent alcohol abuse, in remission 014 Overview (06/28/2016): ALCOHOL ABUSE-IN REMISS Steatosis of liver 08/09/2013 Overview (06/28/2016): FATTY LIVER Assessment & Plan (01/10/2020 10:17 AM CDT): Continue to manage diet/DM and lipids. Monitor labs Assessment & Plan (12/31/2018 9:57 PM CDT): Labs stable. Monitor closely. Follow diet and continue with weight loss Sarcoidosis 08/09/2013 Overview (06/30/2016): SARCOIDOSIS Rosacea 08/09/2013 Overview (06/30/2016): ROSACEA Resolved Problems Problem Noted Date Diagnosed Date Resolved Date Neck pain 12/30/2023 04/12/2024 Assessment & Plan (12/30/2023 8:48 PM CDT): Patient with radicular pain from the cspine into the right arm. She can only find relief with her arm internally rotated above her head Recommend to start with an xray. Start PT. If symptoms persist, I am concerned about a cervical nerve root involvement so an MRI may become necessary. Tyelnol, topicals like lidocaine patches, voltaren gel etc. Will send cyclobenzaprine to use hs prn. Class 1 obesity due to exces s calories with serious comorbidity and body mass index (BMI) of 32.0 to 32.9 in adult 12/30/2023 03/09/2024 Assessment & Plan (02/29/2024 7:23 AM WELT MAKER): Discussed the patient's BMI. The BMI is above average. BMI management plan is completed. BMI Follow-up includes: nutrition counseling, exercise counseling and education provided. Assessment & Plan (02/20/2024 2:02 PM WELT MAKER): This is a chronic condition which continues to improve 6 lbs. Weight loss since last office visit. Continue mounjaro Encouraged healthy eating which includes a low carb diet. Avoiding processed foods, sweets and fried foods. Encouraged 30 minutes of walking at least 5 days per week Discussed that exercise can be broken down into small sessions- for example 2- 15 minutes sessions or 3- 10 minutes sessions. Assessment & Plan (12/30/2023 8:42 PM CDT): Discussed the patient's BMI. The BMI is above average. BMI management plan is completed. BMI Follow-up includes: nutrition counseling, exercise counseling and education provided. Annual physical exam 06/02/2023 024 Assessment & Plan (06/02/2023 5:01 PM WELT MAKER): Encouraged healthy lifestyle, good nutrition and exercise. Encouraged Calcium and Vitamin D and weight bearing exercise for bone health. Reviewed immunizations Reviewed age appropirate screenings. BMI 32.0-32.9,adult 05/23/2023 08/29/19 24 Assessment & Plan (07/22/2023 8:52 PM CDT): Discussed the patient's BMI. The BMI is above average. BMI management plan is completed. BMI Follow-up includes: nutrition counseling, exercise counseling and education provided. Assessment & Plan (06/02/2023 5:01 PM WELT MAKER): Discussed the patient's BMI. The BMI is above average. BMI management plan is completed. BMI Follow-up includes: nutrition counseling, exercise counseling and education provided. Tooth infection 01/28/2023 06/02/2023 Assessment & Plan (01/28/2023 11:09 PM WELT MAKER): Complete antibiotic and follow-up with dentist as instructed BMI 33.0-33.9,adult 01/18/2023 06/02/19 Assessment & Plan (01/18/2023 10:00 AM CDT): Discussed the patient's BMI. The BMI is above average. BMI management plan is completed. BMI Follow-up includes: nutrition counseling, exercise counseling and education provided. Class 1 obesity due to exces s calories with serious comorbidity and body mass index (BMI) of 33.0 to 33.9 in adult 01/18/2023 12/30/2023 Assessment & Plan (12/19/2023 2:46 PM CDT): Discussed the patient's BMI. The BMI is above average. BMI management plan is completed. BMI Follow-up includes: nutrition counseling, exercise counseling and education provided. Assessment & Plan (11/13/2023 11:17 AM CDT): This is a chronic condition which continues 5 lbs. Weight gain since 08/26/2023 Encouraged healthy eating which includes a low carb diet. Avoiding processed foods, sweets and fried foods. Encouraged 30 minutes of walking at least 5 days per week Discussed that exercise can be broken down into small sessions- for example 2- 15 minutes sessions or 3- 10 minutes sessions. Assessment & Plan (10/07/2023 11:31 PM CDT): Discussed the patient's BMI. The BMI is above average. BMI management plan is completed. BMI Follow-up includes: nutrition counseling, exercise counseling and education provided. Assessment & Plan (09/09/2023 8:35 PM CDT): Discussed the patient's BMI. The BMI is above average. BMI management plan is completed. BMI Follow-up includes: nutrition counseling, exercise counseling and education provided. Assessment & Plan (07/22/2023 8:52 PM CDT): Discussed the patient's BMI. The BMI is above average. BMI management plan is completed. BMI Follow-up includes: nutrition counseling, exercise counseling and education provided. Assessment & Plan (06/02/2023 4:55 PM WELT MAKER): Discussed the patient's BMI. The BMI is above average. BMI management plan is completed. BMI Follow-up includes: nutrition counseling, exercise counseling and education provided. Assessment & Plan (01/18/2023 10:00 AM CDT): Discussed the patient's BMI. The BMI is above average. BMI management plan is completed. BMI Follow-up includes: nutrition counseling, exercise counseling and education provided. Pure hypercholesterolemia 11/20/2022 BMI 33.0-33.9,adult 11/02/2022 01/19/20 Assessment & Plan (11/02/2022 2:02 PM CDT): Discussed the patient's BMI. The BMI is above average. BMI management plan is completed. BMI Follow-up includes: nutrition counseling, exercise counseling and education provided. Obesity (BMI 30-39.9) 11/02/20222022 Assessment & Plan (11/02/2022 2:02 PM CDT): Discussed the patient's BMI. The BMI is above average. BMI management plan is completed. BMI Follow-up includes: nutrition counseling, exercise counseling and education provided. Obesity (BMI 30-39.9) 10/10/20222022 Assessment & Plan (10/10/2022 7:52 AM CDT): Discussed the patient's BMI. The BMI is above average. BMI management plan is completed. BMI Follow-up includes: nutrition counseling, exercise counseling and education provided. BMI 32.0-32.9,adult 10/10/2022 11/03/19 Assessment & Plan (10/10/2022 7:52 AM CDT): Discussed the patient's BMI. The BMI is above average. BMI management plan is completed. BMI Follow-up includes: nutrition counseling, exercise counseling and education provided. Obesity (BMI 30-39.9) 06/21/20222022 Assessment & Plan (06/21/2022 7:46 AM CDT): Discussed the patient's BMI. The BMI is above average. BMI management plan is completed. BMI Follow-up includes: nutrition counseling, exercise counseling and education provided. BMI 33.0-33.9,adult 06/21/2022 10/11/19 Assessment & Plan (06/21/2022 7:46 AM CDT): Discussed the patient's BMI. The BMI is above average. BMI management plan is completed. BMI Follow-up includes: nutrition counseling, exercise counseling and education provided. BMI 32.0-32.9,adult 04/30/2022 06/22/19 Assessment & Plan (04/30/2022 8:57 PM WELT MAKER): Discussed the patient's BMI. The BMI is above average. BMI management plan is completed. BMI Follow-up includes: nutrition counseling, exercise counseling and education provided. BMI 33.0-33.9,adult 01/23/2022 04/25/19 Assessment & Plan (01/23/2022 8:18 AM CDT): Discussed the patient's BMI. The BMI is above average. BMI management plan is completed. BMI Follow-up includes: nutrition counseling, exercise counseling and education provided. Annual physical exam 01/22/2022 023 Assessment & Plan (01/23/2022 9:41 AM CDT): Encouraged healthy lifestyle, good nutrition and exercise. Encouraged Calcium and Vitamin D and weight bearing exercise for bone health. Reviewed immunizations Reviewed age appropirate screenings. Type 2 diabetes mellitus with hyperglycemia 08/31/2021 04/30/2022 Assessment & Plan (04/30/2022 8:57 PM WELT MAKER): Insert Obesity (BMI 30-39.9) 05/04/20212022 Assessment & Plan (04/30/2022 8:57 PM WELT MAKER): Discussed the patient's BMI. The BMI is above average. BMI management plan is completed. BMI Follow-up includes: nutrition counseling, exercise counseling and education provided. Assessment & Plan (01/23/2022 8:18 AM CDT): Discussed the patient's BMI. The BMI is above average. BMI management plan is completed. BMI Follow-up includes: nutrition counseling, exercise counseling and education provided. Assessment & Plan (06/30/2021 10:53 AM CDT): Obesity is unchanged. Discussed the patient's BMI. The BMI is above average. BMI management plan is completed. BMI Follow-up includes: nutrition counseling, exercise counseling and education provided. Assessment & Plan (05/04/2021 9:37 AM WELT MAKER): Obesity is unchanged. Discussed the patient's BMI. The BMI is above average. BMI management plan is completed. BMI Follow-up includes: nutrition counseling, exercise counseling and education provided. BMI 31.0-31.9,adult 05/04/2021 01/24/20 Assessment & Plan (06/30/2021 10:53 AM CDT): Obesity is unchanged. Discussed the patient's BMI. The BMI is above average. BMI management plan is completed. BMI Follow-up includes: nutrition counseling, exercise counseling and education provided. Assessment & Plan (05/04/2021 9:37 AM WELT MAKER): Obesity is unchanged. Discussed the patient's BMI. The BMI is above average. BMI management plan is completed. BMI Follow-up includes: nutrition counseling, exercise counseling and education provided. Close exposure to COVID-19 virus 03/05/2021 08/31/2021 Assessment & Plan (03/05/2021 5:03 PM WELT MAKER): Patient to presume positive COVID until results are available and self isolate for 10 days from the onset of sxs. Check COVID test thru [facility] collection site in [place]. If positive, complete quarantine and consider monoclonal antibodies. If negative, treat sxs and observe. Treat sxs with Tylenol, Cough/cold medication otc and add VitD 5,000IU daily and Zinc 50mg daily. Monitor sxs and call or go to the ER if has any of the following: --trouble breathing --persistent pain or pressure in the chest --new confusion --inability to wake or stay awake -- bluish lips or face If patient has been in close contact with anyone, they should be notified and instructed to quarantine per CDC guidelines for 14 days after last exposure to the positive COVID patient and monitor closely for symptoms of COVID. If they appear they should be tested. Close contact includes: --You were within 6 feet of someone who has COVID-19 for a total of 15 minutes or more --You provided care at home to someone who is sick with COVID-19 --You had direct physical contact with the person (hugged or kissed them) --You shared eating or drinking utensils --They sneezed, coughed, or somehow got respiratory droplets on you Additional Steps to avoid exposure/spread include: Avoid crowded places where close contact with others may occur, such as shopping centers, movie theaters, dormitories, or stadiums. Avoid transit where close contact with others may occur, such as planes, trains, and buses. Maintain a distance of approximately 6 feet from other people whenever possible (spacing out if you are in a line, leaving 2 seats in between others at a waiting room when possible). Wash your hands with soap and water often. If needed, use a hand machinist mechanic that contains at least 60% alcohol. Clean and disinfect frequently touched surfaces such as tables, doorknobs, countertops, etc daily. Avoid touching your eyes, nose, and mouth when possible. Other chest pain 01/23/2021 05/28/2021 Flu vaccine need 01/15/2021 05/28/2021 Assessment & Plan (01/15/2021 8:21 PM CDT): Vaccine updated in office today Annual physical exam 01/13/2021 022 Assessment & Plan (01/15/2021 8:18 PM CDT): Encouraged healthy lifestyle, good nutrition and exercise. Encouraged Calcium and Vitamin D and weight bearing exercise for bone health. Reviewed immunizations Reviewed age appropirate screenings. Pure hypercholesterolemia 01/05/2021 Obesity (BMI 30-39.9) 11/05/20202021 Assessment & Plan (01/13/2021 7:30 AM CDT): Obesity is unchanged. Discussed the patient's BMI. The BMI is above average. BMI management plan is completed. BMI Follow-up includes: nutrition counseling, exercise counseling and education provided. Assessment & Plan (11/05/2020 8:14 AM CDT): Obesity is unchanged. Discussed the patient's BMI. The BMI is above average. BMI management plan is completed. BMI Follow-up includes: nutrition counseling, exercise counseling and education provided. BMI 30.0-30.9,adult 11/05/2020 01/14/20 Assessment & Plan (11/05/2020 8:14 AM CDT): Obesity is unchanged. Discussed the patient's BMI. The BMI is above average. BMI management plan is completed. BMI Follow-up includes: nutrition counseling, exercise counseling and education provided. Obesity (BMI 30-39.9) 08/09/20202021 Assessment & Plan (08/09/2020 7:33 AM CDT): Obesity is unchanged. Discussed the patient's BMI. The BMI is above average. BMI management plan is completed. BMI Follow-up includes: nutrition counseling, exercise counseling and education provided. BMI 30.0-30.9,adult 08/09/2020 11/06/19 Assessment & Plan (08/09/2020 7:33 AM CDT): Obesity is unchanged. Discussed the patient's BMI. The BMI is above average. BMI management plan is completed. BMI Follow-up includes: nutrition counseling, exercise counseling and education provided. Snoring 05/31/2020 08/31/2021 Assessment & Plan (05/31/2020 9:10 AM WELT MAKER): The patient will be changing to [employer] insurance on 24 June 2020 Therefore, I will order a home sleep test and she should follow up here after that study is completed. She would like to consider an oral appliance if her sleep apnea is mild in severity. Daytime sleepiness 02/23/2020 Assessment & Plan (02/23/2020 7:49 AM WELT MAKER): Refer to sleep lab for further evaluation Annual physical exam 01/10/2020 020 Assessment & Plan (01/10/2020 10:21 AM CDT): Encouraged healthy lifestyle, good nutrition and exercise. Encouraged Calcium and Vitamin D and weight bearing exercise for bone health. Reviewed immunizations Reviewed age appropirate screenings. BMI 30.0-30.9,adult 01/08/2020 08/10/19 21 Assessment & Plan (05/01/2020 3:10 PM WELT MAKER): Obesity is improved. Discussed the patient's BMI. The BMI is above average. BMI management plan is completed. BMI Follow-up includes: nutrition counseling, exercise counseling and education provided. Assessment & Plan (03/25/2020 12:19 AM WELT MAKER): Obesity is unchanged. Discussed the patient's BMI. The BMI is above average. BMI management plan is completed. BMI Follow-up includes: nutrition counseling, exercise counseling and education provided. Assessment & Plan (02/23/2020 7:49 AM WELT MAKER): Obesity is unchanged. Discussed the patient's BMI. The BMI is above average. BMI management plan is completed. BMI Follow-up includes: nutrition counseling, exercise counseling and education provided. Assessment & Plan (01/08/2020 7:24 AM CDT): Obesity is unchanged. Discussed the patient's BMI. The BMI is above average. BMI management plan is completed. BMI Follow-up includes: nutrition counseling, exercise counseling and education provided. BMI 32.0-32.9,adult 09/04/2019 01/08/20 20 Assessment & Plan (11/08/2019 2:58 PM CDT): Obesity is unchanged. Discussed the patient's BMI. The BMI is above average. BMI management plan is completed. BMI Follow-up includes: nutrition counseling, exercise counseling and education provided. Assessment & Plan (09/04/2019 7:31 AM CDT): Obesity is unchanged. Discussed the patient's BMI. The BMI is above average. BMI management plan is completed. BMI Follow-up includes: nutrition counseling, exercise counseling and education provided. Viral upper respiratory tract infection 05/05/2019 01/10/2020 Assessment & Plan (11/08/2019 2:53 PM CDT): Discussed her symptoms and I suspect this is virus that is finally beginning to clear. I agree with her hole in the 2nd antibiotic as I do not think it made much difference. Encouraged her to not take the steroid as it will just kick upper sugars. Continue to treat symptoms and monitor closely if symptoms worsen or do not fully resolve she is to follow back up in the office. She is in agreement. Assessment & Plan (05/05/2019 11:37 AM WELT MAKER): Tylenol alternating with ibuprofen as directed as needed for headache and sore throat. Instructed to increase clear liquids, rest, and vitamin C in diet. Advised to sleep with head elevated and use a cool mist vaporizer and Vicks VapoRub at bedtime for cough. Recommended follow-up with PCP if symptoms worsen, don't improve, or new symptoms develop. Flu-like symptoms 05/05/2019 11/08/2019 Assessment & Plan (05/05/2019 11:37 AM WELT MAKER): Rapid strep and influenza test were both negative. See plan for viral upper respiratory tract infection. Breast cancer screening by mammogram 04/01/2019 11/08/2019 Sore throat 03/13/2019 11/08/2019 Assessment & Plan (06/01/2019 3:28 PM CDT): Reviewed with patient that strep was negative and most sore throats in adults are viral, so antibiotics don't help. Encouraged supportive therapy otc, cough drops, warm gargles with salt water. Assessment & Plan (05/03/2019 11:27 PM WELT MAKER): Rapid strep positive. Will check throat culture. Multiple allergies. Was last treated with Levaquin. Will try Doxy. Assessment & Plan (04/01/2019 12:22 PM WELT MAKER): Reviewed with patient that strep was negative and most sore throats in adults are viral, so antibiotics don't help. Encouraged supportive therapy otc, cough drops, warm gargles with salt water. Assessment & Plan (03/13/2019 8:12 PM WELT MAKER): Positive strep in the office. Obesity (BMI 30-39.9) 03/13/20192020 Assessment & Plan (05/01/2020 3:09 PM WELT MAKER): Obesity is improved. Discussed the patient's BMI. The BMI is above average. BMI management plan is completed. BMI Follow-up includes: nutrition counseling, exercise counseling and education provided. Assessment & Plan (03/25/2020 12:17 AM WELT MAKER): Obesity is unchanged. Discussed the patient's BMI. The BMI is above average. BMI management plan is completed. BMI Follow-up includes: nutrition counseling, exercise counseling and education provided. Assessment & Plan (02/23/2020 7:45 AM WELT MAKER): Obesity is unchanged. Discussed the patient's BMI. The BMI is above average. BMI management plan is completed. BMI Follow-up includes: nutrition counseling, exercise counseling and education provided. Assessment & Plan (01/10/2020 10:17 AM CDT): Obesity is unchanged. Discussed the patient's BMI. The BMI is above average. BMI management plan is completed. BMI Follow-up includes: nutrition counseling, exercise counseling and education provided. Assessment & Plan (11/08/2019 2:54 PM CDT): Obesity is unchanged. Discussed the patient's BMI. The BMI is above average. BMI management plan is completed. BMI Follow-up includes: nutrition counseling, exercise counseling and education provided. Assessment & Plan (09/21/2019 7:52 PM CDT): Obesity is unchanged. Discussed the patient's BMI. The BMI is above average. BMI management plan is completed. BMI Follow-up includes: nutrition counseling, exercise counseling and education provided. Assessment & Plan (04/01/2019 12:19 PM WELT MAKER): Weight/BMI is in healthy range. Continue healthy lifestyle to maintain. Assessment & Plan (03/13/2019 8:16 PM WELT MAKER): Weight/BMI is in healthy range. Continue healthy lifestyle to maintain. Strep pharyngitis 03/13/2019 11/08/2019 Assessment & Plan (05/03/2019 11:29 PM WELT MAKER): See sore throat Assessment & Plan (03/13/2019 8:15 PM WELT MAKER): Positive strep. Antibiotic to pharmacy. With her multiple allergies, will chose levaquin to try to cover URI/UTI with one antibotic Reviewed ways to decrease spread/repeat infection. Followup if sxs worsen or don't resolve. BMI 30.0-30.9,adult 12/31/2018 03/13/20 Assessment & Plan (03/13/2019 1:39 PM WELT MAKER): BMI Follow-up includes: Discussed diet and exercising counseling. Assessment & Plan (12/31/2018 7:29 AM CDT): BMI Follow-up includes: Discussed diet and exercising counseling. Obesity (BMI 30-39.9) 12/31/20182018 Assessment & Plan (12/31/2018 7:29 AM CDT): BMI Follow-up includes: Discussed diet and exercising counseling. Vegetarian diet 12/31/2018 11/07/2019 Assessment & Plan (12/31/2018 10:08 PM CDT): Check labs Dysuria 12/31/2018 01/10/2020 Assessment & Plan (03/13/2019 8:12 PM WELT MAKER): UA with a little hematuria. Will choose antibiotic to cover both URI/UTI. Reviewed bladder care. Assessment & Plan (01/27/2019 4:06 PM WELT MAKER): Send urine for culture. Treat with Cipro 250 bid x 5 days. Review proper wiping Assessment & Plan (12/31/2018 10:08 PM CDT): macrobid-- Send culture Flu vaccine need 12/31/2018 02/23/2020 Assessment & Plan (01/10/2020 10:21 AM CDT): Updated in the office Assessment & Plan (12/31/2018 10:11 PM CDT): Updated in office today BMI 33.0-33.9,adult 09/10/2018 02/29/20 24 Assessment & Plan (12/19/2023 2:47 PM CDT): Discussed the patient's BMI. The BMI is above average. BMI management plan is completed. BMI Follow-up includes: nutrition counseling, exercise counseling and education provided. Assessment & Plan (10/07/2023 11:31 PM CDT): Discussed the patient's BMI. The BMI is above average. BMI management plan is completed. BMI Follow-up includes: nutrition counseling, exercise counseling and education provided. Assessment & Plan (08/29/2023 7:42 AM CDT): Discussed the patient's BMI. The BMI is above average. BMI management plan is completed. BMI Follow-up includes: nutrition counseling, exercise counseling and education provided. Discussed the patient's BMI. Assessment & Plan (09/10/2018 10:12 AM CDT): Obesity is unchanged. Discussed the patient's BMI. The BMI is above average; BMI management plan is completed. General weight loss/lifestyle modification strategies discussed (elicit support from others; identify saboteurs; non-food rewards, etc). Encouraged increased exercise. Breast cancer screening 09/10/201810/24 Assessment & Plan (04/01/2019 11:00 PM WELT MAKER): Mammogram order provided Assessment & Plan (12/31/2018 10:02 PM CDT): Mammogram order provided Assessment & Plan (09/10/2018 9:59 PM CDT): Mammogram order provided Other fatigue 09/10/2018 08/09/2020 Assessment & Plan (02/23/2020 7:49 AM WELT MAKER): Probably multifactorial. Check labs and followup to re-evaluate Assessment & Plan (12/31/2018 10:03 PM CDT): Probably multifactorial. Check labs and followup to re-evaluate Pt is trying to use all plant based protein so will check labs/vitamins Assessment & Plan (09/10/2018 9:59 PM CDT): Probably multifactorial. Check labs and followup to re-evaluate BMI 32.0-32.9,adult 08/01/2018 09/11/19 19 Assessment & Plan (08/01/2018 8:58 AM CDT): Obesity is unchanged. Discussed the patient's BMI. The BMI is above average; BMI management plan is completed. General weight loss/lifestyle modification strategies discussed (elicit support from others; identify saboteurs; non-food rewards, etc). Obesity, morbid, BMI 40.0-49.9 08/01/2018 06/02/2023 Assessment & Plan (05/23/2023 7:49 AM WELT MAKER): Discussed the patient's BMI. The BMI is above average. BMI management plan is completed. BMI Follow-up includes: nutrition counseling, exercise counseling and education provided. Assessment & Plan (04/01/2019 12:20 PM WELT MAKER): Obesity is unchanged. Discussed the patient's BMI. The BMI is above average. BMI management plan is completed. BMI Follow-up includes: nutrition counseling, exercise counseling and education provided. Assessment & Plan (12/31/2018 9:56 PM CDT): Obesity is improved. Discussed the patient's BMI. The BMI is above average. BMI management plan is completed. BMI Follow-up includes: nutrition counseling, exercise counseling and education provided. Assessment & Plan (09/10/2018 9:54 PM CDT): Obesity is unchanged. Discussed the patient's BMI. The BMI is above average; BMI management plan is completed. General weight loss/lifestyle modification strategies discussed (elicit support from others; identify saboteurs; non-food rewards, etc). Encouraged increased exercise. Assessment & Plan (08/01/2018 7:51 AM CDT): Obesity is unchanged. Discussed the patient's BMI. The BMI is above average; BMI management plan is completed. General weight loss/lifestyle modification strategies discussed (elicit support from others; identify saboteurs; non-food rewards, etc). Primary hypertension 08/01/2018 04/21/2 024 Assessment & Plan (11/05/2022 6:40 PM CDT): Stressed importance of continued A1c control to minimize the half-way effects of diabetes. Bring accuchecks to office when instructed to do so. Check A1c about every 3-6 months. Take medication as prescribed. Get annual eye exam. Encouraged SHUKRI/Statin if able to tolerate. Encouraged weight control and encouraged diabetic diet and exercise. Continue semaglutide 0.5 mg week, Lantus 20 units bedtime, metformin 1 g daily, Humalog 15-20 units with meals. Continue to monitor readings closely and follow- up in December to recheck A1c see where her control is. Assessment & Plan (10/10/2022 9:18 AM CDT): Blood pressure appears stable on current medication regime. Advised to decrease salt intake. Educated patient on the importance of a healthy lifestyle with diet and exercise on the management of hypertension. Continue medications as prescribed and monitor blood pressure at home as needed. Continue following with Dr. Jimenez. Assessment & Plan (07/14/2022 3:32 PM CDT): Bp is stable/in acceptable range for any co-morbidities. Encouraged to limit sodium intake and exercise for weight control. Continue per Dr. Jimenez. Continue lisinopril Assessment & Plan (04/30/2022 8:57 PM WELT MAKER): Stressed importance of continued A1c control to minimize the medical terminologist effects of diabetes. Bring accuchecks to office when instructed to do so. Check A1c about every 3-6 months. Take medication as prescribed. Get annual eye exam. Encouraged SHUKRI/Statin if able to tolerate. Encouraged weight control and encouraged diabetic diet and exercise. Bp is stable/in acceptable range for any co-morbidities. Encouraged to limit sodium intake and exercise for weight control. Continue lisinopril 20 Continue Ozempic. Currently on 0.5 mg weekly. Metformin 1 g in the a.m. and then her Basaglar 20 units at bedtime with Humalog sliding scale. She has noticed better control with using the continuous glucose monitor. Will be due for A1c in about 6 weeks. Do it before she comes back in so we can see how she is managing her diabetes. She states she is been working hard to try to get better control by taking her medicine regularly Assessment & Plan (01/23/2022 9:39 AM CDT): Bp is stable/in acceptable range for any co-morbidities. Encouraged to limit sodium intake and exercise for weight control. Continue lisinopril 20 Assessment & Plan (09/11/2021 10:20 AM CDT): Bp is stable/in acceptable range for any co-morbidities. Encouraged to limit sodium intake and exercise for weight control. Continue lisinopril 20 Assessment & Plan (05/28/2021 9:41 PM WELT MAKER): Bp is stable/in acceptable range for any co-morbidities. Encouraged to limit sodium intake and exercise for weight control. Continue lisinopril Assessment & Plan (01/15/2021 8:16 PM CDT): Bp is stable/in acceptable range for any co-morbidities. Encouraged to limit sodium intake and exercise for weight control. Continue lisinopril [address] Jimenez Assessment & Plan (08/09/2020 5:02 PM CDT): Bp is stable/in acceptable range for any co-morbidities. Encouraged to limit sodium intake and exercise for weight control. Assessment & Plan (05/01/2020 3:09 PM WELT MAKER): Bp is stable/in acceptable range for any co-morbidities. Encouraged to limit sodium intake and exercise for weight control. Continue lisinopril Assessment & Plan (03/25/2020 12:17 AM WELT MAKER): Bp is stable/in acceptable range for any co-morbidities. Encouraged to limit sodium intake and exercise for weight control. Take lisinopril as instructed Assessment & Plan (02/23/2020 7:44 AM WELT MAKER): Bp is stable/in acceptable range for any co-morbidities. Encouraged to limit sodium intake and exercise for weight control. Continue lisinopril Assessment & Plan (01/10/2020 10:16 AM CDT): Bp is stable/in acceptable range for any co-morbidities. Encouraged to limit sodium intake and exercise for weight control. Continue SHUKRI Assessment & Plan (12/31/2018 9:56 PM CDT): Bp is stable/in acceptable range for any co-morbidities. Encouraged to limit sodium intake and exercise for weight control. With weight loss, will monitor closely as may be able to pull back on the meds. Assessment & Plan (09/10/2018 9:54 PM CDT): Bp is stable/in acceptable range for any co-morbidities. Encouraged to limit sodium intake and exercise for weight control. Assessment & Plan (08/01/2018 8:57 AM CDT): Bp is stable/in acceptable range for any co-morbidities. Encouraged to limit sodium intake and exercise for weight control. Continue lisinopril Encounters Date Type Department Care Team Description 06/20/2024 Telephone [facility] Medicine [address] [place] [address] [address] [place] [address] Loly Ball PA Additional Services Or Orders 06/19/2024 12:15 PM CDT Office Visit [facility] Neurosurgery [address] [facility] [address] [place] [address] Nolan Butler MD PhD Cervical disc disorder with myelopathy of mid-cervical region; Narrowing of lumbar spine 06/19/2024 11:45 AM CDT - 06/19/2024 11:59 PM CDT Hospital Encounter [id number] [address] [facility] [address] [place] [address] Cervical disc disorder with myelopathy of mid-cervical region Discharge Disposition: Discharge to home or self care 06/16/2024 11:30 AM CDT Office Visit [facility] Medicine [address] [place] [address] [place] [phone] Loly Ball PA BMI 31.0-31.9,adult (Primary Dx); Coronary artery disease involving skull valley coronary artery of skull valley heart without angina pectoris 06/12/2024 3:30 PM CDT Lab [facility] Medical [facility] Outpatient Lab at [address] [phone] Type 2 diabetes mellitus with hyperlipidemia (HCC) (Primary Dx) 06/12/2024 3:29 PM CDT - 06/12/2024 11:59 PM CDT Hospital Encounter [address] [address] Hypertension associated with diabetes (HCC); Type 2 diabetes mellitus with hyperlipidemia (CMS/HCC) (HCC); Fatigue, unspecified type; BMI 32.0-32.9,adult Discharge Disposition: Discharge to home or self care 06/12/2024 Results Follow-Up [address] [place] [address] Loly Ball PA 06/12/2024 Telephone [facility] [address] [place] [address] [address] [place] [address] Loly Ball PA Medical Question/Miscellaneous 06/11/2024 Orders Only [facility] Neurosurgery [facility] [facility] Medical Office Building [address] [place] [address] Nolan Butler MD PhD Cervical disc disorder with myelopathy of mid-cervical region (Primary Dx) 06/09/2024 Orders Only [address] [place] [address] Loly Ball PA Fatigue, unspecified type (Primary Dx); Hypertension associated with diabetes (HCC); Type 2 diabetes mellitus without complication, with long-term current use of insulin (HCC); Type 2 diabetes mellitus with hyperlipidemia (CMS/HCC) (HCC); BMI 32.0-32.9,adult 06/03/2024 1:30 PM CDT Office Visit [facility] Diabetes Endocrine Care at [address] [phone] Coco Zamudio, SINGH Type 2 diabetes mellitus without complication, with long-term current use of insulin (HCC) (Primary Dx); Type 2 diabetes mellitus with hyperlipidemia (CMS/HCC) (HCC); Hypertension associated with diabetes (HCC); Dexcom continuous glucose monitoring device; Class 1 obesity due to excess calories with serious comorbidity and body mass index (BMI) of 31.0 to 31.9 in adult 05/22/2024 10:45 AM WELT MAKER Office Visit [facility] Neurosurgery [facility] Medical Office Building [address] [place] [address] Nolan Butler MD PhD Cervical disc disorder with myelopathy of mid-cervical region 05/22/2024 10:10 AM WELT MAKER - 05/22/2024 11:59 PM WELT MAKER Hospital Encounter [facility] Radiology [address] [facility] [address] [place] [phone] Neck pain Discharge Disposition: Discharge to home or self care 05/22/2024 Orders Only [facility] Neurosurgery [address] [facility] [address] [place] [address] Nolan Butler MD PhD Cervical disc disorder with myelopathy of mid-cervical region (Primary Dx) 04/17/2024 Telephone [facility] Neurosurgery [address] [facility] Office Building [address] [place] [address] Nolan Butler MD PhD 04/17/2024 Orders Only [facility] Neurosurgery [facility] Office Building [address] [place] [address] Nolan Butler MD PhD Cervical disc disorder with myelopathy of mid-cervical region (Primary Dx); Narrowing of lumbar spine 04/15/2024 2:00 PM WELT MAKER Telemedicine [facility] Medicine [facility] [address] [place] [address] Loly Ball PA Cervical disc disorder with myelopathy of mid-cervical region (Primary Dx); Moderate episode of recurrent major depressive disorder (HCC); Type 2 diabetes mellitus with hyperlipidemia (CMS/HCC) (HCC) 04/15/2024 Telephone [place] [address] [facility] [address] [place] [address] Loly Ball PA 04/07/2024 7:30 AM WELT MAKER - 04/07/2024 12:25 PM WELT MAKER Surgery [facility] Operating Room [address] [place] [phone] Nolan Butler MD PhD FUSION CERVICAL ANTERIOR DISCECTOMY WITH INSTRUMENTATION C4-5, C5-6, C6-7 Anterior Cervical Discectomy and Fusion 04/07/2024 7:28 AM WELT MAKER Anesthesia Event [facility] Operating [address] [place] [address] Gerson Pink MD PhD Karena Mendez NP 04/07/2024 5:45 AM WELT MAKER - 04/09/2024 1:01 PM WELT MAKER Hospital Encounter [facility] [address] [place] [address] Nolan Butler MD PhD Cervical disc disorder with myelopathy of mid-cervical region (Primary Dx); Coronary artery disease involving skull valley coronary artery of skull valley heart without angina pectoris Discharge Disposition: Discharge to home or self care 04/02/2024 1:30 PM WELT MAKER Office Visit [facility] Medical Group Family Medicine [address] [phone] Loly Ball PA Neck pain (Primary Dx); BMI 31.0-31.9,adult; Obesity (BMI 30.0-34.9) 03/27/2024 Documentation [facility] [address] [place] [phone] Joaquín Viramontes RN 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 Disability (Will not complete) from Last 3 Months Immunizations Immunization Administration Dates Next Due Influenza, Quadrivalent, Spl it, Intramuscular 01/03/2018 Influenza, Quadrivalent, Spl it, Preservative Free, Intramuscular 01/13/2021,01/08/2020,12/31/2018,04/06 Influenza, Trivalent, IM (MDV) 12/25/2008 Influenza, Trivalent, Preser vative Free, Intramuscular 11/20/2012 Influenza, Trivalent, Split, Preservative Free, Intradermal 02/09/2017,02/07/2016 Influenza, Unspecified 03/26/2024(Deferr ed: Patient Refused),01/07/2023,04/26/2022(Deferre d: Patient Refused),03/26/2022(Deferred: Patient Refused),03/24/2022(Deferred: Patient Refused),04/26/2021(Deferred: Patient Refused) MMR 10/12/2017,08/27/2017 Pfizer SARS-CoV-2 Monovalent Vaccination (12+ Yrs) PURPLE 07/06/2020,05/22/2020 Pneumococcal Polysaccharide PPV23 04/06/2015,05/2008 Tdap 06/05/2016,03/20/2007 ZOSTER Recombinant 02/10/2021,12/07/2020 Surgical History Surgery Date Site/Laterality Comments OTHER SURGICAL HISTORY ENDOMETRIOSIS: RACHAEL/BSO OTHER SURGICAL HISTORY Endometriosis: laparoscopy-operative OTHER SURGICAL HISTORY Sarcoidosis: no therapy OTHER SURGICAL HISTORY Sleep apnea: she did not return for follow up HYSTERECTOMY 03/26/1994 - 03/25/1995 Hysterectomy OTHER SURGICAL HISTORY Psoriasis right foot: Drug therapy UT OOPHORECTOMY PARTIAL/TOTA L UNI/BI Oophorectomy - Bilateral (Removal Of Both Ovaries) - (Added by TW Conv) TONSILLECTOMY 11/04/2018 CARDIAC STENT PLACEMENT CARDIAC CATHETERIZATION 05/24/2021 - 06/23/2021 CORONARY ANGIOPLASTY OOPHORECTOMY 03/26/1996 - 03/25/1997 Bilateral CERVICAL DISC SURGERY 04/07/2024 CERVICAL DISC SURGERY Bilateral Medical History Medical History Date Comments Sarcoidosis Sarcoidosis Sleep apnea Sleep apnea - CP AP JUST RECEIVED (01/23/2021) Hx Other Medical blepharitis Hx Other Medical Psoriasis right foot Personal history of other me ntal and behavioral disorders History of depression - (Add ed by TW Conv) Personal history of other di seases of the nervous system and sense organs History of blephar itis - (Added by TW Conv) Endometriosis Endometriosis - (Added by TW Conv) Personal history of other sp ecified conditions History of headache - (Added by TW Conv) Depression Gastric reflux Hypercholesteremia Diabetes mellitus (HCC) Coronary artery disease Anxiety Hypertension associated with diabetes (HCC) 08/01/2018 Covid 03/27/2022 Endometritis Family History Medical History Relation Name Comments No Known Problems Brother 1 No Known Problems Brother 2 Heart disease Father Gomez Moreno Hypertension Father Gomez Moreno Hypertension - (Added by TW Conv) Other Father Gomez Moreno bypass heart; Stroke Father Gomez Moreno Family histor y of cerebrovascular accident (CVA) - (Added by TW Conv) Diabetes Father's Brother Sebas Moreno Heart disease Maternal Grandfather Betro Earnestine Breast cancer Maternal Grandmother Maddie Colby Diabetes Maternal Grandmother Maddie Earnestine Breast cancer Mother Janet Colby Cause of gonzales th at age 60 Diabetes Mother Janet Colby Heart disease Paternal Grandfather Ant Moreno Breast cancer Sister 1 Amarilis Mastectomy Sister 1 Amarilis Double mastecto my PONV Sister 2 Thyroid disease Sister 2 Diabetes Sister 3 Rose Marie Kyle Relation Name Status Comments Brother 1 Brother 2 Alive Father Gomez Moreno Alive Father's Brother Sebas Moreno Maternal Grandfather Berto Colby Maternal Grandmother Maddie Colby Mother Janet Colby Paternal Grandfather Ant Moreno Paternal Grandmother Sister 1 Amarilis Alive Sister 2 Alive Sister 3 Rose Marie Kyle Alive Social History Tobacco Use Types Packs/Day Years Used Date Smoking Tobacco: Former Cigarettes 1 24.9 1 975 - 02/23/1999 Smokeless Tobacco: Never Tobacco Cessation:Counseling Given: Not Answered Alcohol Use Standard Drinks/Week Comments No 0 [...] on file Legal Sex Female 11:31 PM WELT MAKER Gender Identity Female 08/20/2020 10:16 AM CDT Sexual Orientation Straight 08/20/2020 10 :16 AM CDT Occupation Industry Job Start Date Job End Date 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 Not on file Not on file Not on file Obstetrics History Para Term AB IAB SAB Ectopic Multiple Livin g Live Births 0 0 0 0 0 0 0 0 0 0 0 Last Filed Vital Signs Vital Sign Reading Time Taken Comments Blood Pressure 126/68 06/16/2024 11:36 AM CDT Pulse 82 06/16/2024 11:36 AM CDT Temperature 36.6 C (97.8 F) 06/16/2024 11:36 AM CDT Respiratory Rate 16 04/09/2024 11:4 0 AM WELT MAKER Oxygen Saturation 96% 06/16/2024 11: 36 AM CDT Inhaled Oxygen Concentration - - Weight 91.5 kg (201 lb 12.8 oz) 025 12:05 PM CDT Height 170.2 cm (5' 7 ) 06/19/2024 12:0 5 PM CDT Body Mass Index 31.61 06/19/2024 12:05 PM CDT Plan of Treatment Health Maintenance Due Date Last Done Comments Hepatitis C Screening 1961 Hepatitis B Screening 1979 Pneumococcal vaccine <65 (2 of 2 - PCV) 04/06/2016 04/06/2015, 08/26/2008 Covid-19 Vaccine ( season) 2023 03/15/2021, 07/06/2020, 05/22/2020 Regular Well Visit/Exam 18-64 05/23/2024 05/23/2023, 01/23/2022, 01/13/2021, Additional history exists Breast Cancer Screening-Mammogram 09/13/2024 09/14/2023, 07/05/2022, 05/26/2019, Additional history exists Influenza Vaccine (#1) 2024 , 01/07/2023, 01/13/2021, Additional history exists Postponed from 11/25/2023 (Patient declined, but will receive in the future) Hemoglobin A1C 12/13/2024 06/12/2024, 0303/2024, 02/20/2024, Additional history exists Dilated Eye Exam 01/20/2025 01/21/2024, , 09/20/2020, Additional history exists Foot Exam 02/19/2025 02/20/2024, 10/25, 09/10/2018 Albumin Creatinine Ratio, Urine 06/12/2025 06/12/2024, 11/13/2023, 06/12/2022 Lipid Panel 06/12/2025 06/12/2024, 01/25, 09/06/2023, Additional history exists eGFR 06/12/2025 06/12/2024, 03/26, 03/20/2024, Additional history exists Depression Screening 06/16/2025 06/16/2024, 04/15/2024, 04/02/2024, Additional history exists DTaP/Tdap/Td Vaccine (3 - Td or Tdap) 06/05/2026 06/05/2016, 03/20/2007 Colon Cancer Screening-Colonoscopy 06/27/2027 06/26/2017 Colon Cancer Screening-CT Colonography Discontinued 06/26/2017 Colon Cancer Screening-DNA Stool Discontinued 06/26/2017 Colon Cancer Screening-FIT Discontinued 06/26/2017 Colon Cancer Screening-Sigmoidoscopy Discontinued 06/26/2017 Zoster Vaccine Completed 02/10/2021, 12/07/2020 Medical Devices Implanted Type Area Musical Therapist Device Identifier Shelf Expiration Date Model / Serial / Lot Cardiac Stent Implanted:Qty: 1 Heart [employer] Maxan 4mm 16mm Variable Angle Spine Screw Bone [id number] - [id number] Implanted:Qty: 4 on 04/07/2024 by Nolan Butler MD PhD at [facility] N/A: Spine Cervical [employer] [id number] / / [employer] Graft Bone Filler Scaffold Arthrocell Plus 1.0cc Abs-2089-03 - [id number] - [id number] Implanted:Qty: 1 on 04/07/2024 by Nolan Butler MD PhD at [facility] [employer] 06/27/2024 ABS- / [id number] / [employer] Graft Bone Filler Scaffold Arthrocell Plus 1.0cc Abs-2089-03 - [id number] 2-24 - [id number] Implanted:Qty: 1 on 04/07/2024 by Nolan Butler MD PhD at [facility] [employer] 06/20/2025 ABS- / [id number] / [employer] Graft Bone Filler Peptide Enhanced Syr I Factor 1cc Putty 700-010 - [id number] Implanted:Qty: 1 on 04/07/2024 by Nolan Butler MD PhD at [facility] [employer] [id number] 09/22/2026 700-01 0 / / [id number] [employer] Cage Spinal Cervical 14d X 16w X 7h 6 Degree [id number] - [id number] Implanted:Qty: 1 on 04/07/2024 by Nolan Butler MD PhD at [facility] N/A: Spine Cervical [employer] [id number] 11/13/2028 [id number] / / [id number] [employer] Cage Spinal Cervical 14d X 16w X 7h 6 Degree [id number] - [id number] Implanted:Qty: 1 on 04/07/2024 by Nolan Butler MD PhD at [facility] N/A: Spine Cervical [employer] [id number] 11/13/2028 [id number] / / [id number] [employer] Cage Spinal Cervical 14d X 16w X 7h 6 Degree [id number] - [id number] Implanted:Qty: 1 on 04/07/2024 by Nolan Butler MD PhD at [facility] N/A: Spine Cervical [employer] [id number] 11/13/2028 [id number] / / [id number] [employer] Maxan 48mm Level 3 Spine Cervical Anterior Plate Bone Titanium [id number] - [id number] Implanted:Qty: 1 on 04/07/2024 by Nolan Butler MD PhD at [facility] N/A: Spine Cervical [employer] [id number] / / [employer] 4mm 16mm Fix Screw Bone [id number] - [id number] Implanted:Qty: 4 on 04/07/2024 by Nolan Butler MD PhD at [facility] N/A: Spine Cervical [employer] [id number] / / Procedures Procedure Name Priority Date/Time Associated Diagnosis Comments XR SPINE CERVICAL 2 OR 3 VIEWS Schedule Routine, Read Routine (OP Routine) 06/19/2024 12:02 PM CDT Cervical disc disorder with myelopathy of mid-cervical region EGFR Routine 06/12/2024 3:29 PM CDT Hypertension associated with diabetes (HCC) Type 2 diabetes mellitus with hyperlipidemia (CMS/HCC) (HCC) DIFFERENTIAL AUTO Routine 06/12/2024 3:2 9 PM CDT Hypertension associated with diabetes (HCC) Type 2 diabetes mellitus with hyperlipidemia (CMS/HCC) (HCC) TSH Routine 06/12/2024 3:29 PM CDT Fatigue, unspecified type BMI 32.0-32.9,adult LIPID PANEL Routine 06/12/2024 3:29 PM CDT Type 2 diabetes mellitus with hyperlipidemia (CMS/HCC) (HCC) ALBUMIN CREATININE RATIO, URINE Routine 06/12/2024 3:29 PM CDT Type 2 diabetes mellitus with hyperlipidemia (CMS/HCC) (HCC) HEMOGLOBIN A1C Routine 06/12/2024 3:29 PM CDT Type 2 diabetes mellitus with hyperlipidemia (CMS/HCC) (HCC) CBC WITH AUTO DIFFERENTIAL Routine 06/12/2024 3:29 PM CDT Hypertension associated with diabetes (HCC) Type 2 diabetes mellitus with hyperlipidemia (CMS/HCC) (HCC) COMPREHENSIVE METABOLIC PANEL Routine 06/12/2024 3:29 PM CDT Hypertension associated with diabetes (HCC) Type 2 diabetes mellitus with hyperlipidemia (CMS/HCC) (HCC) POCT HEMOGLOBIN A1C Routine 06/03/2024 1 :23 PM CDT Type 2 diabetes mellitus without complication, with long-term current use of insulin (HCC) POCT GLUCOSE Routine 06/03/2024 1:23 PM CDT Type 2 diabetes mellitus without complication, with long-term current use of insulin (HCC) XR SPINE CERVICAL 2 OR 3 VIEWS Schedule Routine, Read Routine (OP Routine) 05/22/2024 10:26 AM WELT MAKER Neck pain POCT GLUCOSE DEVICE Routine 04/09/2024 11:48 AM WELT MAKER EGFR STAT 04/09/2024 9:47 AM WELT MAKER VANCOMYCIN LEVEL TROUGH STAT 04/09/2024 9:47 AM WELT MAKER CREATININE STAT 04/09/2024 9:47 AM WELT MAKER POCT GLUCOSE DEVICE Routine 04/09/2024 8 :17 AM WELT MAKER POCT GLUCOSE DEVICE Routine 04/08/2024 9 :18 PM WELT MAKER POCT GLUCOSE DEVICE Routine 04/08/2024 5 :10 PM WELT MAKER POCT GLUCOSE DEVICE Routine 04/08/2024 12:20 PM WELT MAKER POCT GLUCOSE DEVICE Routine 04/08/2024 8 :23 AM WELT MAKER POCT GLUCOSE DEVICE Routine 04/07/2024 10:11 PM WELT MAKER POCT GLUCOSE DEVICE Routine 04/07/2024 8 :23 PM WELT MAKER XR SPINE CERVICAL 2 OR 3 VIEWS IP Routine 04/07/2024 6:00 PM WELT MAKER POCT GLUCOSE DEVICE Routine 04/07/2024 4 :51 PM WELT MAKER POCT GLUCOSE DEVICE Routine 04/07/2024 11:06 AM WELT MAKER FL FLUOROSCOPY < 1 HOUR IP Routine 04/07/2024 10:52 AM WELT MAKER POCT GLUCOSE DEVICE Routine 04/07/2024 10:09 AM WELT MAKER UT AN PROCEDURE PLACEHOLDER Routine 04/07/2024 8:21 AM WELT MAKER UT AN PROCEDURE PLACEHOLDER Routine 04/07/2024 8:20 AM WELT MAKER UT AN ELECTIVE ENDOTRACHEAL AIRWAY Routine 04/07/2024 8:20 AM WELT MAKER POCT GLUCOSE DEVICE Routine 04/07/2024 8 :02 AM WELT MAKER SPINAL CORD MONITORING 04/07/2024 7:33 AM WELT MAKER Cervical disc disorder with myelopathy of mid-cervical region FUSION CERVICAL ANTERIOR DISCECTOMY WITH INSTRUMENTATION 04/07/2024 7:33 AM WELT MAKER Cervical disc disorder with myelopathy of mid-cervical region TYPE AND SCREEN STAT 04/07/2024 7:07 AM WELT MAKER POCT GLUCOSE DEVICE Routine 04/07/2024 6 :29 AM WELT MAKER DIABETES EYE EXAM Routine 01/21/2024 1:35 PM CDT SCREENING MAMMOGRAM BILATERAL W OLI Schedule Routine, Read Routine (OP Routine) 09/14/2023 9:43 AM CDT Breast cancer screening by mammogram COLONOSCOPY Routine 06/26/2017 from Last 3 Months or Most Recently Relevant to Health Maintenance Results * XR Spine Cervical 2 or [...] soft tissue swelling. No fracture. Procedure Note Koffi Prakash, Matthew Jo MD - 06/19/2024 EXAMINATION: XR SPINE CERVICAL [...] PhD IMG XR PROCEDURES Final R esult * eGFR (06/12/2024 3:29 PM CDT) eGFR >90 >=60 mL/min/1. 73 m2 Comment: Interpretive Data Reference Interval Normal >/= 90 mL/min/1.73m2 Mildly decreased* 60 - 89 mL/min/1.73m2 Mildly to moderately decreased 45 - 59 mL/min/1.73m2 Moderately to severely decreased 30 - 44 mL/min/1.73m2 Severely decreased 15 - 29 mL/min/1.73m2 Kidney Failure < 15 mL/min/1.73m2 *Relative to young adult level Estimated glomerular filtration rate is determined by the 2020 CKD-EPI equation recommended by the National Kidney Foundation (A Unifying Approach to GFR Estimation: Recommendations of the NKF-ASK Task Force on Reassessing the Inclusion of Race in Diagnosing Kidney Disease, JASN 2020). The CKD-EPI equation should not be used for patients with unstable renal function and has not been validated in children and those over 70. Current interpretive data was last reviewed 2021. Blood 06/12/2024 3:29 PM CDT 06/12/2024 9:03 PM CDT Loly AGUILAR LAB BLOOD ORDERABLES Final Result [facility] [id number] [place] [address] * Differential, auto (06/12/2024 3:29 PM CDT) Neutrophil abs 3.6 1.5 - 6.5 K/cumm Imm gran abs 0.0 0.0 - 0.1 K/cumm [facility] Lymphocyte abs 1.8 0.8 - 3.3 K/cumm [facility] Monocyte abs 0.4 0.2 - 0.8 K/[facility] Eosinophil abs 0.1 0.0 - 0.5 K/cumm [facility] Basophil abs 0.0 0.0 - 0.1 K/cumm [facility] Neutrophil pct 60.9 % [facility] Comment: Interpretive Data Percent cell count reference ranges are not reported, since discordance with absolute values may lead to misinterpretation of CBC data. Current Interpretive Data was last revised on 2017. Imm gran pct 0.5 % [facility] Comment: Interpretive Data Percent cell count reference ranges are not reported, since discordance with absolute values may lead to misinterpretation of CBC data. Current Interpretive Data was last revised on 2017. Lymphocyte pct 29.8 % [facility] Comment: Interpretive Data Percent cell count reference ranges are not reported, since discordance with absolute values may lead to misinterpretation of CBC data. Current Interpretive Data was last revised on 2017. Monocyte pct 6.4 % [facility] Comment: Interpretive Data Percent cell count reference ranges are not reported, since discordance with absolute values may lead to misinterpretation of CBC data. Current Interpretive Data was last revised on 2017. Eosinophil pct 1.7 % [facility] Comment: Interpretive Data Percent cell count reference ranges are not reported, since discordance with absolute values may lead to misinterpretation of CBC data. Current Interpretive Data was last revised on 2017. Basophil pct 0.7 % [facility] Comment: Interpretive Data Percent cell count reference ranges are not reported, since discordance with absolute values may lead to misinterpretation of CBC data. Current Interpretive Data was last revised on 2017. Blood 06/12/2024 3:29 PM CDT 06/12/2024 9:01 PM CDT Loly AGUILAR LAB BLOOD ORDERABLES Final Result Performing Organization Address City/[facility]/ZIP Co de Phone Number JAKUB [id number] [place] [address] * (ABNORMAL) CBC with auto differential (06/12/2024 3:29 PM CDT) Pathologist [facility] WBC 5.9 3.8 - 9.9 K/cumm Hgb 14.0 11.9 - 15.5 g/dL [facility] Hct 43.9 35.6 - 45.5 % [facility] Plt 165 150 - 400 K/cumm [facility] MPV 9.7 9.1 - 12.3 fL [facility] RBC 5.03 3.90 - 5.20 M/cumm [facility] MCV 87.3 81.3 - 96.4 fL [facility] MCH 27.8 27.1 - 33.3 pg [facility] MCHC 31.9(L) 32.3 - 35.7 g/dL [facility] RDW CV 13.7 11.1 - 14.9 % [facility] RDW SD 43.2 35.7 - 48.1 fL [facility] NRBC abs 0.00 0.00 - 0.01 K/cumm [facility] Blood 06/12/2024 3:29 PM CDT 06/12/2024 9:01 PM CDT Loly AGUILAR LAB BLOOD ORDERABLES Final Result Performing Organization Address City/[facility]/ZIP Co de Phone Number JAKUB [address] [address] * (ABNORMAL) Albumin Creatinine Ratio, Urine (06/12/2024 3:29 PM CDT) Albumin Ur 75.2 mg/L Comment: Interpretive Data No reference range established. Current interpretive data was last revised 2018. Creatinine Ur 101.3 mg/dL JAKUB Comment: Interpretive Data No reference range established. Current interpretive data was last revised 2018. Albumin Creatinine Ratio, Ur 74(H) 1 - 29 mg/g JAKUB Urine 06/12/2024 3:29 PM CDT 06/12/2024 9:01 PM CDT Loly AGUILAR LAB URINE ORDERABLES Final Result Performing Organization Address [facility] Co de Phone Number [facility] [id number] [facility] [place] [address] * TSH (06/12/2024 3:29 PM CDT) Thyroid Stimulating Hormone 3.41 0.30 - 4.20 mcIUnit/mL Blood 06/12/2024 3:29 PM CDT 06/12/2024 9:01 PM CDT Loly AGUILAR LAB BLOOD ORDERABLES Final Result Performing Organization Address [facility] de Phone Number [facility] [id number] [facility] [place] [address] * (ABNORMAL) Hemoglobin A1c (06/12/2024 3:29 PM CDT) Hgb A1C 6.8(H) 4.0 - 5.6 % Estimated Average Glucose 148 mg/dL JAKUB Comment: The ADA recommends reporting an estimated Average Glucose (eAG) with all Hemoglobin A1c results using the equation derived from a study of 507 normal and diabetic adults. Minority populations were underrepresented and children were not included. (Diabetes Care 31:1564-2187, 2008). The eAG is not equivalent to a fasting glucose. Blood 06/12/2024 3:2 9 PM CDT 06/12/2024 9:01 PM CDT Loly AGUILAR LAB BLOOD ORDERABLES Final Result JAKUB [address] [facility] Department [place] [address] * (ABNORMAL) Lipid panel (06/12/2024 3:29 PM CDT) Cholesterol 270(H) 30 - 199 mg/dL Comment: Interpretive Data Ages < or = 19 years Acceptable: <170 mg/dL Borderline high: 170-199 mg/dL High: >or= 200 mg/dL Ages > or = 20 years Desirable: <200 mg/dL Borderline high: 200-239 mg/dL High: >or= 240 mg/dL Literature References: 1. Expert Panel on Integrated Guidelines for Cardiovascular Health and Risk Reduction in Children and Adolescents. Pediatrics 2011;128:S213 2. NCEP Expert Panel. Circulation 2004;110:227 Current Interpretive Data was last revised on 2017. Triglycerides 159(H) <=149 mg/dL JAKUB BALL Comment: Interpretive Data Ages < or = 9 years Acceptable: <75 mg/dL Borderline high: 75-99 mg/dL High: >or= 100 mg/dL Ages 10 to 20 years Acceptable: <90 mg/dL Borderline high: 90-129 mg/dL High: >or= 130 mg/dL Ages > or = 20 years Desirable: <150 mg/dL Borderline high: 150-199 mg/dL High: 200-499 mg/dL Very high: >or= 499 mg/dL Literature References: 1. Expert Panel on Integrated Guidelines for Cardiovascular Health and Risk Reduction in Children and Adolescents. Pediatrics 2011;128:S213 2. NCEP Expert Panel. Circulation 2004;110:227 Current Interpretive Data was last revised on 2017. HDL 52 >=40 mg/dL JAKUB BALL Comment: Interpretive Data Ages < or = 19 years Acceptable: >45 mg/dL Borderline low: 40-45 mg/dL Low: <40 mg/dL Ages > or = 20 years Desirable: >or= 60 mg/dL Low: <40 mg/dL Literature References: 1. Expert Panel on Integrated Guidelines for Cardiovascular Health and Risk Reduction in Children and Adolescents. Pediatrics 2011;128:S213 2. NCEP Expert Panel. Circulation 2004;110:227 Current Interpretive Data was last revised on 2017. LDL, calculated 189(H) <=129 mg/dL JAKUB BALL Comment: Interpretive Data Ages < or = 19 years Acceptable: <110 mg/dL Borderline high: 110-129 mg/dL High: >or= 130 mg/dL Ages > or = 20 years Optimal: <100 mg/dL Near optimal: 100-129 mg/dL Borderline high: 130-159 mg/dL High: >160 mg/dL Calculated using the Bossman LDL-C estimating equation. This equation was implemented on 2023. Prior to this date LDL-C was estimated using the Friedewald equation. Literature References: 1. Expert Panel on Integrated Guidelines for Cardiovascular Health and Risk Reduction in Children and Adolescents. Pediatrics 2011;128:S213 2. NCEP Expert Panel. Circulation 2004;110:227 3. Bossman Dhillon et al. MAUREEN Cardiol. 2019July 24;5(5):540-548. doi: 10.1001/[email or web address].2020.0013 Current Interpretive Data was last revised on 2023. Non-HDL Cholesterol 218 mg/dL JAKUB BALL Comment: Interpretive Data Ages < or = 19 years Acceptable: <120 mg/dL Borderline high: 120-144 mg/dL High: >145 mg/dL Ages > or = 20 years When triglycerides are >200 mg/dL, Non-HDL cholesterol is a secondary target of therapy with treatment goals that are 30 mg/dL greater than the LDL cholesterol target. Literature References: 1. Expert Panel on Integrated Guidelines for Cardiovascular Health and Risk Reduction in Children and Adolescents. Pediatrics 2011;128:S213 2. NCEP Expert Panel. Circulation 2004;110:227 Current Interpretive Data was last revised on 2017. Chol/HDL ratio 5 JAKUB Blood 06/12/2024 3:29 PM CDT 06/12/2024 9:01 PM CDT us Loly AGUILAR LAB BLOOD ORDERABLES Final Result JAKUB BALL [id number] [place] [address] * (ABNORMAL) Comprehensive metabolic panel (06/12/2024 3:29 PM CDT) Sodium 140 135 - 145 mmol/L Potassium, pl 4.5 3.3 - 4.9 mmol/L [facility] CH Chloride 103 97 - 110 mmol/L [facility] CH CO2 26 22 - 32 mmol/L [facility] CH Anion gap 11 2 - 15 mmol/L [facility] BUN 19 6 - 25 mg/dL [facility] CH Creatinine 0.58(L) 0.60 - 1.10 mg/dL [facility] CH Glucose 136 70 - 199 mg/dL [facility] CH Comment: Interpretive Data Fasting glucose >/= 126 mg/dl is diagnostic for diabetes. Fasting is defined as no caloric intake for at least 8 hours. Fasting glucose between 100 mg/dl to 125 mg/dl is diagnostic of prediabetes. In a patient with classic symptoms of hyperglycemia or hyperglycemic crisis, a random glucose >/= 200 mg/dl is diagnostic for diabetes. In the absence of unequivocal hyperglycemia, results should be confirmed by repeat testing. The classification and Diagnosis of Diabetes Diabetes Care 2021; 46: S19-S40. Current interpretive data was last revised 2022. Calcium 9.3 8.5 - 10.3 mg/dL [facility] CH Bilirubin, total 0.3 0.1 - 1.2 mg/dL [facility] CH Protein, pl 7.1 6.5 - 8.5 g/dL [facility] Albumin 4.3 3.5 - 5.0 g/dL [facility] CH Alk phos 67 40 - 130 Units/L [facility] ALT 23 7 - 45 Units/L [facility] CH AST 22 10 - 45 Units/L [facility] CH Blood 06/12/2024 3:29 PM CDT 06/12/2024 9:01 PM CDT us Loly AGUILAR LAB BLOOD ORDERABLES Final Result [facility]AKUB [facility] [address] [place] [address] * POCT hemoglobin A1c (06/03/2024 1:23 PM CDT) Hemoglobin A1C, POC 6.6 4.0 - 5.6 % Blood 06/03/2024 1:23 PM CDT Coco Zamudio MEDICAL DOCTOR NUCLEAR MEDICINE POINT OF CARE TEST ORDERABLES F inal Result * POCT glucose (06/03/2024 1:23 PM CDT) Glucose Blood, POC 161 mg/dL Blood 06/03/2024 1:23 PM CDT Coco Zamudio MEDICAL DOCTOR NUCLEAR MEDICINE POINT OF CARE TEST ORDERABLES F inal Result * XR Spine Cervical 2 or 3 Views (05/22/2024 10:26 AM WELT MAKER) Anatomical Region Laterality Modality Spine N/A Computed Radiogr aphy 05/22/2024 10:5 0 AM WELT MAKER Impressions 05/22/2024 10:50 AM WELT MAKER Unchanged anterior instrumented C4-C7 fusion in expected position. Electronically signed by: Usama Peres M.D. Narrative 05/22/2024 10:50 AM WELT MAKER XR SPINE CERVICAL 2 OR 3 VIEWS HISTORY: Cervical fusion. FINDINGS: 2 views of the cervical spine are obtained and compared with 04/07/2024. There is redemonstrated anterior discectomies and instrumented interbody fusions at C4-C7. Instrumentation is intact. Alignment is unchanged. Vertebral body heights are preserved. Prevertebral soft tissues are normal. Procedure Note Usama Peres MD - 05/22/2024 XR SPINE CERVICAL 2 OR 3 VIEWS HISTORY: Cervical fusion. FINDINGS: 2 views of the cervical spine are obtained and compared with 04/07/2024. There is redemonstrated anterior discectomies and instrumented interbody fusions at C4-C7. Instrumentation is intact. Alignment is unchanged. Vertebral body heights are preserved. Prevertebral soft tissues are normal. IMPRESSION: Unchanged anterior instrumented C4-C7 fusion in expected position. Electronically signed by: Usama Peres M.D. Nolan Butler MD PhD IMG XR PROCEDURES Final R esult * POCT glucose (04/09/2024 11:48 AM WELT MAKER) Glucose, POC 149 70 - 199 mg/dL Blood 04/09/2024 11:4 8 AM WELT MAKER 04/09/2024 11:48 AM WELT MAKER Nolan Butler MD PhD LAB POCT ORDERABLES - DEV ICE Final Result JAKUB [facility] [place] [address] * eGFR (04/09/2024 9:47 AM WELT MAKER) eGFR >90 >=60 mL/min/1. 73 m2 Comment: Interpretive Data Reference Interval Normal >/= 90 mL/min/1.73m2 Mildly decreased* 60 - 89 mL/min/1.73m2 Mildly to moderately decreased 45 - 59 mL/min/1.73m2 Moderately to severely decreased 30 - 44 mL/min/1.73m2 Severely decreased 15 - 29 mL/min/1.73m2 Kidney Failure < 15 mL/min/1.73m2 *Relative to young adult level Estimated glomerular filtration rate is determined by the 2020 CKD-EPI equation recommended by the National Kidney Foundation (A Unifying Approach to GFR Estimation: Recommendations of the NKF-ASK Task Force on Reassessing the Inclusion of Race in Diagnosing Kidney Disease, JASN 2020). The CKD-EPI equation should not be used for patients with unstable renal function and has not been validated in children and those over 70. Current interpretive data was last reviewed 2021. Blood 04/09/2024 9:47 AM WELT MAKER 04/09/2024 9:56 AM WELT MAKER Alex Nix MEDICAL DOCTOR NUCLEAR MEDICINE LAB BLOOD ORDERABLES Final Result Performing Organization Address City/[facility]/ZIP Co de Phone Number JAKUB [facility] [place] [address] * Creatinine (04/09/2024 9:47 AM WELT MAKER) Creatinine 0.63 0.60 - 1.10 mg/dL Blood 04/09/2024 9:47 AM WELT MAKER 04/09/2024 9:56 AM WELT MAKER Narrative [facility] 04/09/2024 10:22 AM WELT MAKER Before 0900 vanc Alex Nix MEDICAL DOCTOR NUCLEAR MEDICINE LAB BLOOD ORDERABLES Final Result Performing Organization Address [facility] Co de Phone Number [facility] [place] [address] * (ABNORMAL) Vancomycin level trough Before 0900 vanc (04/09/2024 9:47 AM WELT MAKER) Vancomycin trough 7.9(L) 10.0 - 20.0 mcg/mL Blood 04/09/2024 9:47 AM WELT MAKER 04/09/2024 9:56 AM WELT MAKER Narrative [facility] 04/09/2024 10:22 AM WELT MAKER Before 0900 vanc Alex Nix MEDICAL DOCTOR NUCLEAR MEDICINE LAB BLOOD ORDERABLES Final Result Performing Organization Address [facility] de Phone Number [facility] Department [place] [place] [address] * POCT glucose (04/09/2024 8:17 AM WELT MAKER) Glucose, POC 174 70 - 199 mg/dL Blood 04/09/2024 8:17 AM WELT MAKER 04/09/2024 8:17 AM WELT MAKER Nolan Butler MD PhD LAB POCT ORDERABLES - DEV ICE Final Result Performing Organization Address [facility] Co de Phone Number [facility] [place] [address] * POCT glucose (04/08/2024 9:18 PM WELT MAKER) Glucose, POC 138 70 - 199 mg/dL Blood 04/08/2024 9:18 PM WELT MAKER 04/08/2024 9:18 PM WELT MAKER us Nolan Butler MD PhD LAB POCT ORDERABLES - DEV ICE Final Result Performing Organization Address [facility] Co de Phone Number [facility] [place] [address] * POCT glucose (04/08/2024 5:10 PM WELT MAKER) Glucose, POC 140 70 - 199 mg/dL Blood 04/08/2024 5:10 PM WELT MAKER 04/08/2024 5:10 PM WELT MAKER us Nolan Butler MD PhD LAB POCT ORDERABLES - DEV ICE Final Result Performing Organization Address [facility] de Phone Number [facility] [place] [place] [address] * POCT glucose (04/08/2024 12:20 PM WELT MAKER) Glucose, POC 166 70 - 199 mg/dL Blood 04/08/2024 12:2 0 PM WELT MAKER 04/08/2024 12:20 PM WELT MAKER us Nolan Butler MD PhD LAB POCT ORDERABLES - DEV ICE Final Result Performing Organization Address [facility] de Phone Number [facility] [place] [address] * POCT glucose (04/08/2024 8:23 AM WELT MAKER) Glucose, POC 157 70 - 199 mg/dL Blood 04/08/2024 8:23 AM WELT MAKER 04/08/2024 8:23 AM WELT MAKER Nolan Butler MD PhD LAB POCT ORDERABLES - DEV ICE Final Result Performing Organization Address City/[facility] Co de [facility] Number [facility] [place] [address] * POCT glucose (04/07/2024 10:11 PM WELT MAKER) Glucose, POC 131 70 - 199 mg/dL Blood 04/07/2024 10:1 1 PM WELT MAKER 04/07/2024 10:11 PM WELT MAKER Nolan Butler MD PhD LAB POCT ORDERABLES - DEV ICE Final Result Performing Organization Address [facility] [place] [address] * POCT glucose (04/07/2024 8:23 PM WELT MAKER) Glucose, POC 182 70 - 199 mg/dL Blood 04/07/2024 8:23 PM WELT MAKER 04/07/2024 8:23 PM WELT MAKER Nolan Butler MD PhD LAB POCT ORDERABLES - DEV ICE Final Result Performing Organization Address [facility] Co de Phone Number [facility] [place] [place] [address] * XR Spine Cervical 2 or 3 Views (04/07/2024 6:00 PM WELT MAKER) Anatomical Region Laterality Modality Spine N/A Computed Radiogr aphy 04/08/2024 6:14 AM WELT MAKER Impressions 04/08/2024 6:14 AM WELT MAKER 1. Interval C4-C7 anterior cervical decompression and instrumented fusion Electronically signed by: Deshawn Issa MD, PHD Narrative 04/08/2024 6:14 AM WELT MAKER EXAMINATION: Cervical spine 2 or 3 views HISTORY: Cervical spondylosis FINDINGS: 2 view examination cervical spine is compared to CT examination from 01/30/2024 and demonstrates interval C4-C7 anterior decompression and instrumented fusion. Prevertebral soft tissue swelling and gas and surgical drain are noted. The alignment appears normal. There is no acute fracture. Procedure Note Deshawn Issa MD PhD - 04/08/2024 EXAMINATION: Cervical spine 2 or 3 views HISTORY: Cervical spondylosis FINDINGS: 2 view examination cervical spine is compared to CT examination from 01/30/2024 and demonstrates interval C4-C7 anterior decompression and instrumented fusion. Prevertebral soft tissue swelling and gas and surgical drain are noted. The alignment appears normal. There is no acute fracture. IMPRESSION: 1. Interval C4-C7 anterior cervical decompression and instrumented fusion Electronically signed by: Deshawn Issa MD, PHD Niya Galvez DO IMG XR PROCEDURES Final Result * (ABNORMAL) POCT glucose (04/07/2024 4:51 PM WELT MAKER) Glucose, POC 205(H) 70 - 199 mg/dL Blood 04/07/2024 4:51 PM WELT MAKER 04/07/2024 4:51 PM WELT MAKER Nolan Butler MD PhD LAB POCT ORDERABLES - DEV ICE Final Result Performing Organization Address [facility] Co de Phone Number [facility] [facility] [place] [address] * (ABNORMAL) POCT glucose (04/07/2024 11:06 AM WELT MAKER) Glucose, POC 205(H) 70 - 199 mg/dL Blood 04/07/2024 11:0 6 AM WELT MAKER 04/07/2024 11:06 AM WELT MAKER Nolan Butler MD PhD LAB POCT ORDERABLES - DEV ICE Final Result Performing Organization Address City/[facility] Co de Phone Number [facility] [place] [address] * FL Fluoroscopy < 1 Hour (04/07/2024 10:52 AM WELT MAKER) Narrative [facility] - 04/07/2024 10:52 AM WELT MAKER The images from this study are not interpreted by Radiology. Please refer to the physician's procedure / OR operative note. Nolan Butler MD PhD IMG FLUOROSCOPY PROCEDURE S Final Result Performing Organization Address [facility]/ZIP Co de Phone Number [facility] * POCT glucose (04/07/2024 10:09 AM WELT MAKER) Glucose, POC 160 70 - 199 mg/dL Blood 04/07/2024 10:0 9 AM WELT MAKER 04/07/2024 10:09 AM WELT MAKER Nolan Butler MD PhD LAB POCT ORDERABLES - DEV ICE Final Result Performing Organization Address [facility] Co de Phone Number [facility] [place] [address] * UT AN PROCEDURE PLACEHOLDER (04/07/2024 8:21 AM WELT MAKER) Narrative Luba Cantu CRNA - 04/07/2024 8:21 AM WELT MAKER Luba Cantu CRNA 04/07/2024 8:22 AM Peripheral IV Catheter Patient location: OR Staff: Placed by: STRINGED INSTRUMENT TUNER: Luba Cantu CRNA Preprocedure prep: Prep solution: chlorhexadine PPE: gloves and provider hat/mask PIV line: Laterality: right Site: hand Catheter size: 18 g Technique: direct visualization Procedure details: good blood return Number of attempts: 1 Assessment: Events: patient tolerated procedure well with no complications Gerson Pink MD PhD ANESTHESIA ORDERABLES Fin al Result * UT AN ELECTIVE ENDOTRACHEAL AIRWAY, UT AN PROCEDURE PLACEHOLDER (04/07/2024 8:20 AM WELT MAKER) Narrative Luba Cantu CRNA - 04/07/2024 8:20 AM WELT MAKER Luba Cantu CRNA 04/07/2024 8:21 AM Airway Patient location: OR Urgency: elective Indications for airway management: anesthesia Difficult airway: no Staff: Placed by: [place]: Luba Cantu CRNA Emergent airway documentation: Risks and benefits discussed: yes Consent obtained: yes Consent given by: patient Airway prep: Preoxygenated: yes Patient position: sniffing MILS maintained throughout: yes Mask difficulty assessment: 0 - not attempted Spontaneous ventilation during airway: absent Sedation level during airway: GA Final airway details: Final airway type: endotracheal airway Tube type: ETT ETT size: 7.0 mm Cuffed: yes Technique used for successful ETT placement: video laryngoscopy Devices/Methods used in placement: stylet Insertion site: oral Video blade type: Girard Blade size: 3 Cormack-Lehane (video): grade IIa - partial view of glottis Cuff volume: 6 mL Cuff inflated with: air ETT to lips: 22 cm Placement verified by: auscultation and CO2 detection Airway secured with: silk tape Number of attempts: 1 us Gerson Pink MD PhD ANESTHESIA ORDERABLES Fin al Result * POCT glucose (04/07/2024 8:02 AM WELT MAKER) Glucose, POC 151 70 - 199 mg/dL Blood 04/07/2024 8:02 AM WELT MAKER 04/07/2024 8:02 AM WELT MAKER us Nolan Butler MD PhD LAB POCT ORDERABLES - DEV ICE Final Result [facility] Department [place] [address] * Type and screen (04/07/2024 7:07 AM WELT MAKER) Isa, indirect Negative ABO Rh AB Positive [facility] Blood 04/07/2024 7:07 AM WELT MAKER 04/07/2024 7:28 AM WELT MAKER Narrative [facility] - 04/07/2024 8:09 AM WELT MAKER Has the patient had Daratumumab or Isatuximab in the past 6 months?->Unknown Zoe Lomas MEDICAL DOCTOR NUCLEAR MEDICINE LAB BLOOD BANK TEST ORDE RABSAMEER Final Result Performing Organization Address City/[facility]/ZIP Co de Phone Number [facility] [place] [address] * POCT glucose (04/07/2024 6:29 AM WELT MAKER) Glucose, POC 173 70 - 199 mg/dL Blood 04/07/2024 6:29 AM WELT MAKER 04/07/2024 6:29 AM WELT MAKER Nolan Butler MD PhD LAB POCT ORDERABLES - DEV ICE Final Result Performing Organization Address [facility] Co de Phone Number [facility] [place] [address] * DIABETES EYE EXAM (01/21/2024 1:35 PM CDT) SCRIBED DIABETIC DILATED EYE EXAM Normal Silvano Hobbs MD HEALTH MAINTENANCE Edited Result - Final * Screening Mammogram Bilateral W Oli (09/14/2023 9:43 AM CDT) Anatomical Region Laterality Modality Breast Bilateral Mammography us Loly AGUILAR IMG MAMMO PROCEDURES Final Result * COLONOSCOPY (06/26/2017) Guy Rodríguez MD HEALTH MAINTENANCE Edited Re sult - Final from Last 3 Months or Most Recently Relevant to Health Maintenance Insurance [facility] [place] [id number] [facility] Advance Directives For more information, please contact: [phone] Documents on File Type Date Recorded Patient Distribution Systems Serviceperson Expl anation ADVANCE DIRECTIVE 04/07/2024 6:07 AM Power of Airplane Rental Clerk-Medical * Full Code (Latest Code Status on File) Date Activated Date Inactivated Comments 04/07/2024 1:08 PM 04/09/2024 5:01 PM * Full Code Date Activated Date Inactivated Comments 06/13/2021 11:22 AM 06/13/2021 8:19 PM * Full Code Date Activated Date Inactivated Comments 01/23/2021 8:37 PM 01/24/2021 11:22 PM Care Teams Knot Picker Cloth Relationship Specialty Start Date End Date Loly Ball PA [address] [place] [address] PCP - General Internal Medicine 07/29/18 [place] [address] [place] [address] Nurse Practitioner Security Threat Analyst 03/06/24 Fiona Brandon MD [address] [place] [address] Referring Physician Interventional Cardiology 04/01/24
--- OUTSIDE RECORDS SUMMARY | 2024-06-20 14:54 | XMS_ITS | Patient Health Record ---
Author Organization [facility] [employer] Address [address] [place] [address] Care Team Providers Care Animal Control Officer Name Role Phone Bree Merino Unavailable [phone] Migration, Provider Unavailable Unavailable Allergies Allergen (clinical drug ingredient) Drug/Non Drug Allergy documented on EMR Reaction Allergy Type Onset Date Status Substance with penicillin structure and antibacterial mechanism of action (substance) Penicillins Unknown Drug Allergy 07/24/2023 Active Reason For Referral No Information Medications Medication SIG (Take, Route, Frequency, Duration) Notes Start Date End Date Status Clopidogrel Bisulfate 75 MG Oral 07/24/2023 Active Hydrocortisone Phuc-Pramoxine 2.5-1 % Rectal 07/24/2023 Active OZEMPIC 1 MG/DOSE (2 MG/1.5 ML) SUBCUTANEOUS PEN INJECTOR *Reorder from [facility] for eRx and Interaction Alerts* 07/24/2023 Active FREESTYLE LUCAS 2 SENSOR KIT *Reorder from [facility] for eRx and Interaction Alerts* 07/24/2023 Active Permethrin 5% External 07/24/2023 Activ e BD ULTRA-FINE PEN NEEDLE 32 gauge x MISCELLANEOUS *Reorder from [facility] for eRx and Interaction Alerts* 07/24/2023 Active Magnesium Oxide (Elemental) 400 MG Oral *Reorder from [facility] for eRx and Interaction Alerts* 07/24/2023 Active Levemir FlexPen 100 unit/mL (3 mL) SUBCUTANEOUS *Reorder from [facility] for eRx and Interaction Alerts* 07/24/2023 Active Ozempic (1 MG/DOSE) 4 MG/3ML Subcutaneous *Pick strength-form from [facility] for eRX* 07/24/2023 Active Basaglar KwikPen 100 UNIT/ML Subcutaneous 07/24/2023 Active Ammonium Lactate 12 % External 07/24/2023 Active metFORMIN HCl 500 MG Oral 07/24/2023 Active Sertraline HCl 100 MG 1 tablet Oral Once a day for 90 days 07/24/2023 Active Nitroglycerin 0.4 MG Sublingual 07/24/2023 Active predniSONE 10 MG Oral 07/24/2023 Ac tive Fluticasone Propionate Diskus 50 MCG/ACT Inhalation *Reorder from [facility] for eRx and Interaction Alerts* 07/24/2023 Active VICTOZA 2-NERY 0.6 mg/0.1 mL (18 mg/3 mL) Subcutaneous *Reorder from [facility] for eRx and Interaction Alerts* 07/24/2023 Active OneTouch Verio In Vitro 07/24/2023 Acti ve Pantoprazole Sodium 40 MG Oral 07/24/2023 Active Rosuvastatin Calcium 40 MG Oral 07/24/2023 Active Insulin Lispro (1 Unit Dial) 100 UNIT/ML Subcutaneous 07/24/2023 Active Aspirin Adult Low Strength 81 MG Oral 07/24/2023 Active Benzonatate 100 MG Oral 07/24/2023 Active Lisinopril 20 MG Oral 07/24/2023 Ac tive INSULIN GLARGINE-YFGN (U-100) 100 UNIT/ML (3 ML) SUBCUTANEOUS PEN *[facility] and Interaction Alert[facility]* 07/24/2023 Active Rosuvastatin Calcium 10 MG Oral 07/24/2023 Active Immunizations Vaccine Route Administration Date Status Comme nts Influenza virus vaccine, quadrivalent (IIV4), split virus, 0.25 mL dosage Unknown 03/26/2017 Administered MMR Unknown 08/27/2017 Administered MMR Unknown 10/12/2017 Administered Novel [id number], preservative free Unknown 12/31/2018 Administered Novel Ujohvhnuz-[id number], preservative free Unknown 01/08/2020 Administered Pfizer Epuls Covid-19 Vac cine 2nd dose Unknown 05/22/2020 Administered Pfizer Biontech Covid-19 Vac cine 2nd dose Unknown 07/06/2020 Administered Pfizer Biontech Covid-19 Vac cine 2nd dose Unknown 03/15/2021 Administered Social History Sex Assigned At : Social [...] date was tobacco cessation counseling provided?: (Notes: [email or web address] answered No to the Tobacco cessation counseling [...] you currently employed?: YesWho is your employer?: [employer] family servicesMarriage and SexualityWhat [...] YesDo you have a medical power of commercial litigation attorney?: NoPublic Health and TravelHave you been [...] Risk Notes Problem Mild recurrent major depression (03540971) Major depressive disorder, recurrent, mild (F33.0) 07/24/19 24 Active confirmed Problem Generalized anxiety disorder (45615041) Generalized anxiety disorder (F41.1) 07/24/19 24 Active confirmed Problem Primary insomnia (9995812) Primary insomnia (F51.01) 07/24/19 24 Active confirmed Problem Attention deficit hyperactivity disorder, combined type (97307821) Attention-deficit hyperactivity disorder, combined type (F90.2) 07/24/19 24 Active confirmed Problem Long-term current use of drug therapy (748881112) Other continuous churn buttermaker (current) drug therapy (Z79.899) 07/24/19 24 Active confirmed Vital Signs Heart Rate 71 /min 07/24/2023 Height-cm 170.18 cm 07/24/2023 Blood pressure diastolic 72 mm Hg 07/24/2023 Weight-kg 92.35 kg 07/24/2023 Height 67.00 in 07/24/2023 Blood pressure systolic 112 mm Hg 07/24/2023 Weight 203.60 lbs 07/24/2023 BMI 31.9 kg/m2 07/24/2023 Encounters Encounter Location Date Provider Diagnosis [facility] [employer] [place] [address] [facility] [address] [address] 07/24/2023 Bree Merino Generalized anxiety disorder F41.1 ; Other care home (current) drug therapy Z79.899 ; Attention-deficit hyperactivity disorder, combined type F90.2 ; Major depressive disorder, recurrent, mild F33.0 and Primary insomnia F51.01 [facility] [address] [address] 09/18/2023 Bree Merino Major depressive disorder, recurrent, mild F33.0 ; Generalized anxiety disorder F41.1 ; Primary insomnia F51.01 ; Attention-deficit hyperactivity disorder, combined type F90.2 and Other continuous churn buttermaker (current) drug therapy Z79.899 [facility] [employer] [address] [address] 07/19/2023 Provider Migration [facility] [employer] [address] 08/11/2023 Provider Migration [facility] [employer] [address] 08/12/2023 Provider Migration Assessments Encounter Date Diagnosis (ICD Code) Assessment Notes Treatment Notes Treatment Clinical Notes Section Notes 09/18/2023 Major depressive disorder, recurrent, mild (ICD-10 - F33.0) 1. Mild recurrent major depression -Sertraline 100 mg dailyobtain labs PCP see PCPseen foundry equipment mechanic, pulmonology, dentist, and PCP educated on all [...] DAILY Qty: (90) tablet Refills: 0 Pharmacy: [place] [id number] Note to Pharmacy: D/C 50 mg daily [...] sleep specialist CPAP and educated on using yltvlwvQ97.01: Primary insomnia 4. Attention deficit hyperactivity disorder, combined type -hx cardiac stent 07/2020 for Irma 2 TEST RESULT REVIEWED No RX HCWGBB69.2: Attention-deficit hyperactivity disorder, combined type 5. Long-term drug kggujhgB67.899: Other continuous churn buttermaker (current) drug therapy , Preventing Depression From Coming Back: Care Instructions material was published, Learning About Depression Screening material was published, Seasonal Affective Disorder: Care Instructions material was published 1. Mild recurrent major depression -Sertraline 100 mg daily obtain labs PCP see PCP seen foundry equipment mechanic, pulmonology, dentist, and PCP educated on all [...] DAILY Qty: (90) tablet Refills: 0 Pharmacy: [place] [id number] Note to Pharmacy: D/C 50 mg daily [...] hyperactivity disorder, combined type 5. Long-term drug loipvmzD26.899: Other continuous churn buttermaker (current) drug therapy 09/18/2023 Generalized anxiety disorder (ICD-10 - F41.1) Generalized Anxiety Disorder: Care Instructions material was published, Learning About Anxiety Disorders material was published 1. Mild recurrent major depression -Sertraline 100 mg daily obtain labs PCP see PCP seen foundry equipment mechanic, pulmonology, dentist, and PCP educated on all [...] DAILY Qty: (90) tablet Refills: 0 Pharmacy: [facility] [id number] Note to Pharmacy: D/C 50 mg daily [...] hyperactivity disorder, combined type 5. Long-term drug cudbeoiW56.899: Other continuous churn buttermaker (current) drug therapy 07/24/2023 Major depressive disorder, recurrent, mild (ICD-10 - F33.0) 07/24/2023 Generalized anxiety disorder (ICD-10 - F41.1) 07/24/2023 Primary insomnia (ICD-10 - F51.01) 07/24/2023 Attention-defi cit hyperactivity disorder, combined type (ICD-10 - F90.2) 07/24/2023 Other care home (current) drug therapy (ICD-10 - Z79.899) 09/18/2023 Primary insomnia (ICD-10 - F51.01) Insomnia: Care Instructions material was published, Learning About Sleeping Well material was published 1. Mild recurrent major depression -Sertraline 100 mg daily obtain labs PCP see PCP seen foundry equipment mechanic, pulmonology, dentist, and PCP educated on all [...] DAILY Qty: (90) tablet Refills: 0 Pharmacy: [facility] [employer] 9[address] Note to Pharmacy: D/C 50 mg daily [...] type -hx cardiac stent 07/2020 for maker PRKAASH 2 TEST RESULT REVIEWED No RX GIVEN F90.2: Attention-deficit hyperactivity disorder, combined type 5. Long-term drug bwwgjkiY11.899: Other continuous churn buttermaker (current) drug therapy 09/18/2023 Attention-defi cit hyperactivity disorder, combined type (ICD-10 - F90.2) Learning About Attention Deficit Hyperactivity Disorder (ADHD) in Adults material was published 1. Mild recurrent major depression -Sertraline 100 mg daily obtain labs PCP see PCP seen foundry equipment mechanic, pulmonology, dentist, and PCP educated on all [...] DAILY Qty: (90) tablet Refills: 0 Pharmacy: [facility] [employer] [facility] [place] [facility] Note to Pharmacy: D/C 50 mg daily [...] hyperactivity disorder, combined type 5. Long-term drug hletyzgA68.899: Other care home (current) drug therapy 09/18/2023 Other continuous churn buttermaker (current) drug therapy (ICD-10 - Z79.899) Medication Refill: Care Instructions material was published 1. Mild recurrent major depression -Sertraline 100 mg daily obtain labs PCP see PCP seen foundry equipment mechanic, pulmonology, dentist, and PCP educated on all [...] DAILY Qty: (90) tablet Refills: 0 Pharmacy: [place] [id number] Note to Pharmacy: D/C 50 mg daily [...] hyperactivity disorder, combined type 5. Long-term drug dtfkvpkJ15.899: Other care home (current) drug therapy 09/18/2023 Other Sertraline Oral Tablet (SERTRALINE - ORAL) material was published 1. Mild recurrent major depression -Sertraline 100 mg daily obtain labs PCP see PCP seen foundry equipment mechanic, pulmonology, dentist, and PCP educated on all [...] DAILY Qty: (90) tablet Refills: 0 Pharmacy: [place] [id number] Note to Pharmacy: D/C 50 mg daily [...] hyperactivity disorder, combined type 5. Long-term drug wigybjeQ04.899: Other continuous churn buttermaker (current) drug therapy Plan Of Treatment Next Appt Details Provider Name:Bree Merino , 06/23/2024 04:15:00 PM, [address], [address], [place], [address], Insurance Providers Payer Name Payer Address Payer Phone Subscriber Number Group Number Insured Name Patient Relationship to Insured Coverage Start Date Coverage End Date [employer] P[employer] [address] [place] [address] [id number] SABRINA DURAN Self - patient is the insured Medical (General) History Medical History History ICD Code Problems: Attention deficit hyperactivit y disorder, combined type Binge eating disorder Generalized anxiety disorder History of SARS-CoV-2 Long-term drug therapy Mild recurrent major depression Moderate recurrent major depression Primary insomnia Unable to concentrate , Anxiety Disorder: Y Depressi on Major: Y Panic Episodes: Y PTSD: Y [...] Y Obesity: Y Vision or Eye Problems: Y Surgical History Surgery Date(Month/Year) Hysterectomy/revise vagina (40547) Endometrial ablation (61790) 05/20/1989 Hysterectomy (51225) 07/05/1994 Any surgical history 07/08/1994 Cardiac stent 07/30/2020 Other 11/04/2018 Tonsilectomy/adenoids 11/04/2018 Hysterectomy/revise vagina C ardiac Stent - 07/30/2020 Other - 11/04/2018 tonsilectomy/adenoids - 11/04/2018 Any Surgical History - 07/08/1994 Hysterectomy - 07/05/1994 Endometrial Ablation - 05/20/1989
--- OUTSIDE RECORDS SUMMARY | 2024-06-20 14:54 | XMS_ITS | Clinical Summary ---
Author Organization [facility] [employer] Address [address] [place] [address] Care Team Providers Care Secondary School Teacher Librarian Name Role Phone Florina Montesinos MD Primary Care Provider Source Comments [facility] [employer],non-[facility] Affiliates and Associated Physician Practices is amultiple site organization consisting of ambulatory clinics and hospital sitesin [place], [place], [place] and [place]. This disclosure is being madepursuant to the Care Everywhere program and may not contain all information available regarding this patient. Last updated 17.[facility] [employer] Allergies Active Allergy Reactions Criticality Noted Date Comments Penicillins Urticaria 09/21/2013 Medications * Be aware that medications may not be up to date on this document. Alwaysverify current medications with the patient. Medication Sig Dispensed Refills Start Date End Date Status insulin detemir (LEVEMIR) vial Inject 32 Units subcutaneously once daily. Active insulin lispro (HUMALOG) vial Inject subcutaneously. Sliding scale per carb count Active metFORMIN (GLUCOPHAGE) 1000 MG tablet Take 1,000 mg by mouth 2 times daily with morning and evening meal. Active citalopram (CELEXA) 40 MG tablet Take 40 mg by mouth once daily. Active omeprazole (PRILOSEC) 20 MG capsule Take 20 mg by mouth daily before breakfast. Active lisinopril (PRINIVIL; ZESTRIL) 20 MG tablet Take 20 mg by mouth once daily. Not taking for last month Active Social History Tobacco Use Types Packs/Day Years Used Date Smoking Tobacco: Former Cigarettes 1 04/26/1978 - 02/23/1999 Alcohol Use Standard Drinks/Week Comments No 0 (1 standard drink = 0.6 oz pur e alcohol) Sex and Gender Information Value Date Recorded Sex Assigned at Not on file Gender Identity Not on file Sexual Orientation Not on file Last Filed Vital Signs Vital Sign Reading Time Taken Comments Blood Pressure 167/77 09/21/2013 12:43 PM CDT Pulse 88 09/21/2013 12:43 PM CDT Temperature 36.8 C (98.3 F) 09/21/2013 12:43 PM CDT Respiratory Rate - - Oxygen Saturation 97% 09/21/2013 12:43 PM CDT Inhaled Oxygen Concentration - - Weight 99.8 kg (220 lb) 09/21/2013 12:43 PM CDT Height 170.2 cm (5' 7 ) 09/21/2013 12:43 PM CDT Body Mass Index 34.46 09/21/2013 12:43 PM CDT Plan of Treatment Health Maintenance Due Date Last Done Comments COLOGUARD (AGES 45-75) - COL ON CA SCREENING 1961 COLON MONITORING 1961 COLONOSCOPY - COLON CA SCREENING 1961 CT COLONOGRAPHY - COLON CA SCREENING 1961 Colorectal Cancer Screening 1961 FIT - COLON CA SCREENING 1961 FLEX SIG - COLON CA SCREENING 1961 LIPID TESTING 1961 MAMMOGRAM 1961 PAP SMEAR 1961 HIV SCREENING 1976 HEPATITIS C SCREENING 03/10/1979 DTAP/TDAP/TD VACCINES (1 - Tdap) 1980 PNEUMOCOCCAL VACCINE 50+ (1 of 1 - PCV) 2011 ZOSTER VACCINE (1 of 2) 2011 COVID-19 VACCINE ( - 2023-2 5 season) 2023 INFLUENZA VACCINE (#1) 2023 DEPRESSION SCREENING 03/26/2024 Respiratory Syncytial Virus (RSV) Vaccine Pt: or over 60 yrs (1 - 1-dose 75+ series) 2036 HEPATITIS B VACCINE Aged Out No longe r eligible based on patient's age to complete this topic HIB VACCINE Aged Out No longer eligi ble based on patient's age to complete this topic HPV VACCINE Aged Out No longer eligi ble based on patient's age to complete this topic MENINGOCOCCAL (Group B) VACC INE SHARED DECISION-MAKING Aged Out No longer eligibl e based on patient's age to complete this topic MENINGOCOCCAL GROUPS A/C/Y/W VACCINE Aged Out No longer eligible b ased on patient's age to complete this topic PNEUMOCOCCAL VACCINE Aged Out No long er eligible based on patient's age to complete this topic Care Teams Secondary School Teacher Librarian Relationship Specialty Start Date End Date Florina Montesinos MD PCP - General Internal Medicine 09/21/13
--- OUTSIDE RECORDS SUMMARY | 2024-06-20 14:54 | XMS_ITS | Referral Summary ---
Author Organization [facility] Address [address] [place] [address] Care Team Providers Care Decorative Engraver Apprentice Name Role Phone Loly Ball Primary Care Provider [phone] Bree Ballesteros NP Unavailable Fiona Brandon MD Unavailable [phone] Encounters Date Type Department Care Team Description 06/20/2024 Telephone [facility] Family Medicine [address] [facility] [address] [place] [address] Loly Ball PA Additional Services Or Orders 06/19/2024 11:45 AM CDT - 06/19/2024 11:59 PM CDT Hospital Encounter [id number] [address] [facility] [address] [place] [address] Cervical disc disorder with myelopathy of mid-cervical region Discharge Disposition: Discharge to home or self care 06/19/2024 12:15 PM CDT Office Visit [facility] Neurosurgery [address] [facility] Medical Office Building [address] [place] [address] Nolan Butler MD PhD Cervical disc disorder with myelopathy of mid-cervical region; Narrowing of lumbar spine 06/16/2024 11:30 AM CDT Office Visit [address] [place] [phone] Loly Ball PA BMI 31.0-31.9,adult (Primary Dx); Coronary artery disease involving cahto coronary artery of cahto heart without angina pectoris 06/12/2024 Results Follow-Up [address] [place] [phone] Loly Ball PA 06/12/2024 3:29 PM CDT - 06/12/2024 11:59 PM CDT Hospital Encounter [address] [address] Hypertension associated with diabetes (HCC); Type 2 diabetes mellitus with hyperlipidemia (CMS/HCC) (HCC); Fatigue, unspecified type; BMI 32.0-32.9,adult Discharge Disposition: Discharge to home or self care 06/12/2024 3:30 PM CDT Lab [facility] Out[facility] at [address] [address] Type 2 diabetes mellitus with hyperlipidemia (HCC) (Primary Dx) 06/12/[address] [place] [phone] Loly Ball PA Medical Question/Miscellaneous 06/11/2024 Orders Only [facility]surgery [address] [facility] Medical Office Building [address] [place] [address] Nolan Butler MD PhD Cervical disc disorder with myelopathy of mid-cervical region (Primary Dx) 06/09/2024 Orders Only [address] [place] [address] Loly Ball PA Fatigue, unspecified type (Primary Dx); Hypertension associated with diabetes (HCC); Type 2 diabetes mellitus without complication, with long-term current use of insulin (HCC); Type 2 diabetes mellitus with hyperlipidemia (CMS/HCC) (HCC); BMI 32.0-32.9,adult 06/03/2024 1:30 PM CDT Office Visit [facility] at [address] [place] [address] Coco Zamudio NP Type 2 diabetes mellitus without complication, with long-term current use of insulin (HCC) (Primary Dx); Type 2 diabetes mellitus with hyperlipidemia (CMS/HCC) (HCC); Hypertension associated with diabetes (HCC); Dexcom continuous glucose monitoring device; Class 1 obesity due to excess calories with serious comorbidity and body mass index (BMI) of 31.0 to 31.9 in adult 05/22/2024 Orders Only [facility] [address] [place] [address] Medical Office [facility] [address] [place] [address] Nolan Butler MD PhD Cervical disc disorder with myelopathy of mid-cervical region (Primary Dx) 05/22/2024 10:10 AM AUTOMOTIVE REFINISH TECHNICIAN - 05/22/2024 11:59 PM AUTOMOTIVE REFINISH TECHNICIAN Hospital Encounter [id number] [address] [place] [address] [address] [place] [phone] Neck pain Discharge Disposition: Discharge to home or self care 05/22/2024 10:45 AM AUTOMOTIVE REFINISH TECHNICIAN Office Visit [address] Office [facility] [address] [place] [phone] Nolan Butler MD PhD Cervical disc disorder with myelopathy of mid-cervical region 04/17/2024 Telephone [facility] [address] [place] [address] Office [facility] [address] [place] [address] Nolan Butler MD PhD 04/17/2024 Orders Only [facility] [address] [place] [address] Office [facility] [address] [place] [address] Nolan Butler MD PhD Cervical disc disorder with myelopathy of mid-cervical region (Primary Dx); Narrowing of lumbar spine 04/15/2024 Telephone [facility] Family Medicine [address] [facility] [address] [place] [address] Loly Ball PA 04/15/2024 2:00 PM AUTOMOTIVE REFINISH TECHNICIAN Telemedicine [facility] Medicine [address] [facility] [address] [place] [address] Loly Ball PA Cervical disc disorder with myelopathy of mid-cervical region (Primary Dx); Moderate episode of recurrent major depressive disorder (HCC); Type 2 diabetes mellitus with hyperlipidemia (CMS/HCC) (HCC) 04/07/2024 5:45 AM AUTOMOTIVE REFINISH TECHNICIAN - 04/09/2024 1:01 PM AUTOMOTIVE REFINISH TECHNICIAN Hospital Encounter [address] [address] Nolan Butler MD PhD Cervical disc disorder with myelopathy of mid-cervical region (Primary Dx); Coronary artery disease involving cahto coronary artery of cahto heart without angina pectoris Discharge Disposition: Discharge to home or self care 04/07/2024 7:30 AM AUTOMOTIVE REFINISH TECHNICIAN - 04/07/2024 12:25 PM AUTOMOTIVE REFINISH TECHNICIAN Surgery [facility] [address] [place] [address] Nolan Butler MD PhD FUSION CERVICAL ANTERIOR DISCECTOMY WITH INSTRUMENTATION C4-5, C5-6, C6-7 Anterior Cervical Discectomy and Fusion 04/07/2024 7:28 AM AUTOMOTIVE REFINISH TECHNICIAN Anesthesia Event [facility] [address] [place] [address] Gerson Pink MD PhD Karena Mendez NP 04/02/2024 1:30 PM AUTOMOTIVE REFINISH TECHNICIAN Office Visit [facility] Medicine [address] [facility] [address] [place] [address] Loly Ball PA Neck pain (Primary Dx); BMI 31.0-31.9,adult; Obesity (BMI 30.0-34.9) 03/27/2024 Documentation [facility] [address] [place] [address] Joaquín Viramontes RN rn coronary care unit Disability (Will not complete) from Last 3 Months Allergies Active Allergy Reactions Criticality Noted Date [...] by mouth daily 90 tablet 2 07/18/19 Active Additional Information Patient taking differently: 50 mgoral Daily, Informant: Self, Reported on 06/19/2024 nitroglycerin (NITROSTAT) 0.4 mg SL tabletIndicat ions:Coronary artery disease involving cahto coronary artery of cahto heart without angina pectoris,Othe r chest pain [...] within 12 hours or as directed by . 30 patch 04/09/19 25 Active cyclobenzapri ne [...] 75 mg tabletIndicat ions:Coronary artery disease involving cahto coronary artery of cahto heart without angina pectoris Take 1 tablet [...] 75 mg tabletIndicat ions:Coronary artery disease involving cahto coronary artery of cahto heart without angina pectoris Take 1 tablet (75 mg total) by mouth daily DO NOT RESUME TAKING UNTIL 04/22/24. 04/22/19 025 Discontinued(R eorder) oxyCODONE (ROXICODONE) 5 mg immediate release tabletIndicat ions:Pain Take 1 tablet (5 mg total) by mouth every 8 (eight) hours as needed for pain 21 tablet 05/29/19 025 Discontinued Active Problems Patient Care Coordination No te Formatting of this note migh t be different from the original. CAD for BIC Problem Noted Date Diagnosed Date Cervical disc disorder with myelopathy of mid-cervical region 03/10/2024 Assessment & Plan (04/27/2024 11:10 PM AUTOMOTIVE REFINISH TECHNICIAN): Status post C4-7 ACDF on April [address] Cintron office at [facility] Continue per their office for postop management. At this point she does not appear to have any respiratory urinary or active infections. Reviewed signs and symptoms and problems and she will call if she has any concerns. Assessment & Plan (04/12/2024 8:46 PM AUTOMOTIVE REFINISH TECHNICIAN): Patient has neck surgery scheduled with Dr. Butler at [facility] next week. FMLA paperwork has been completed. Advised patient I am unable to complete prison disability paperwork as she is not disabled. She may discuss with Neurosurgeon regarding post-op paperwork/plan. Class 1 obesity due to exces s calories with serious comorbidity and body mass index (BMI) of 31.0 to 31.9 in adult 03/09/2024 Assessment & Plan (04/02/2024 1:43 PM AUTOMOTIVE REFINISH TECHNICIAN): Discussed the patient's BMI. The BMI is above average. BMI management plan is completed. BMI Follow-up includes: nutrition counseling, exercise counseling and education provided. Assessment & Plan (03/09/2024 8:52 PM AUTOMOTIVE REFINISH TECHNICIAN): Discussed the patient's BMI. The BMI is above average. BMI management plan is completed. BMI Follow-up includes: nutrition counseling, exercise counseling and education provided. BMI 32.0-32.9,adult 02/29/2024 Assessment & Plan (02/29/2024 7:23 AM AUTOMOTIVE REFINISH TECHNICIAN): Discussed the patient's BMI. The BMI is above average. BMI management plan is completed. BMI Follow-up includes: nutrition counseling, exercise counseling and education provided. Cervical radiculopathy 01/09/2024 Cervical stenosis of spine 01/09/2024 Assessment & Plan (03/09/2024 8:52 PM AUTOMOTIVE REFINISH TECHNICIAN): Patient continues to see Dr. Cardenas as at [facility]. Per patient she is planning [...] Will send cyclobenzaprine to use hs prn. [employer] continuous glucose monitoring device 10/25 Assessment & Plan (06/03/2024 2:24 PM CDT): Continuous glucose monitor (cgm) applied from 05/21/2024 to 06/03/2024 This device was placed for monitor and treatment of blood sugar. Interpretation of data- average glucose 168. In target range 71%. 0 hypoglycemia. 29% hyperglycemia Assessment & Plan (02/20/2024 2:01 PM AUTOMOTIVE REFINISH TECHNICIAN): Continuous glucose monitor (cgm) applied from 02/07/2024 [...] 07/15/2023 Assessment & Plan (03/09/2024 8:51 PM AUTOMOTIVE REFINISH TECHNICIAN): Bp is stable/in acceptable range for any co-morbidities. Encouraged to limit sodium intake and exercise for weight control. Stressed importance of continued A1c control to minimize the supervisor cytology effects of diabetes. Bring accuchecks to office when instructed to do so. Check A1c about every 3-6 months. Take medication as prescribed. Get annual eye exam. Encouraged SHUKRI/Statin if able to tolerate. Encouraged weight control and encouraged diabetic diet and exercise. Continue lisinopril 20 Diabetes is managed by Coco Zamudio nurse practitioner. Assessment & Plan (02/20/2024 2:01 PM AUTOMOTIVE REFINISH TECHNICIAN): This is a chronic condition which is [...] of continued A1c control to minimize the prison effects of diabetes. Bring accuchecks to office [...] 07/14/2022 Assessment & Plan (06/02/2023 5:01 PM AUTOMOTIVE REFINISH TECHNICIAN): Mammogram order provided Assessment & Plan (07/14/2022 [...] 01/23/2022 Assessment & Plan (06/02/2023 4:56 PM AUTOMOTIVE REFINISH TECHNICIAN): Patient has had very poor compliance with [...] the patient with a nasal pillow mask. DME company was [employer] and the patient would like to use [employer] if possible. She does have [employer] health insurance now. Assessment & Plan (01/23/2022 [...] CDT): I did send an order to [employer] to show the patient variety of mask [...] provided. Assessment & Plan (04/02/2024 1:43 PM AUTOMOTIVE REFINISH TECHNICIAN): Discussed the patient's BMI. The BMI is [...] 08/09/2020 Assessment & Plan (04/30/2022 8:57 PM AUTOMOTIVE REFINISH TECHNICIAN): Probably multifactorial. Check labs and followup to re-evaluate Assessment & Plan (08/09/2020 5:07 PM CDT): Probably multifactorial. Check labs and followup to re-evaluate Coronary artery disease invo lving cahto coronary artery of cahto heart with unstable angina pectoris 08/04/2020 Overview (08/09/2020): Left Heart Cath done 07/30/2020 IMPRESSION 1. 90%lesion in the midLAD status post placment of a [id number] doyle drug-eluting stent proxillay post dilated to 3.5 Patient was instructed to continue 1. [id number] indefinitiely 2. Continue Plavix 75mg x at least 1 year 3. Increase crestor to 20mg to achieve LD below 70 4. MagOx 400mg daily Assessment & Plan (03/09/2024 8:51 PM AUTOMOTIVE REFINISH TECHNICIAN): Continue per Dr. Jimenez. Continue with Plavix and statin Assessment & Plan (06/02/2023 5:06 PM AUTOMOTIVE REFINISH TECHNICIAN): Managed by Dr. Jimenez. Continue statin Plavix [...] statin. Assessment & Plan (05/28/2021 9:42 PM AUTOMOTIVE REFINISH TECHNICIAN): Continue per Dr. Jimenez continue statin Plavix [...] labs. Assessment & Plan (05/03/2019 11:29 PM AUTOMOTIVE REFINISH TECHNICIAN): supplement Type 2 diabetes mellitus wit hout complication, with long-term current use of insulin 08/01/2018 Assessment & Plan (02/20/2024 2:00 PM AUTOMOTIVE REFINISH TECHNICIAN): This is a chronic condition which is [...] IN TYPE 2 DIABETES (HCC) WRITTEN ON 01/23/2022 9:39 AM BY LOLY BALL PA Continue insulin. Assessment & Plan (09/09/2023 8:35 PM CDT): Stressed importance of continued A1c control to minimize the supervisor cytology effects of diabetes. Bring accuchecks to office [...] Continue metformin She is working with the director of volunteer services with her insurance. Assessment & Plan (07/22/2023 8:52 PM CDT): Stressed importance of continued A1c control to minimize the supervisor cytology effects of diabetes. Bring accuchecks to office [...] HYPERGLYCEMIA, WITH LONG-TERM CURRENT USE OF INSULIN ([facility] ([facility]) WRITTEN ON 06/02/2023 5:01 PM BY LOLY BALL PA Stressed importance of continued A1c control to minimize the prison effects of diabetes. Bring accuchecks to office [...] LONG-TERM INSULIN USE IN TYPE 2 DIABETES ([facility]) WRITTEN ON 06/02/2023 4:54 PM BY LOLY BALL PA Patient has been prescribed insulin Assessment & Plan (01/28/2023 11:09 PM AUTOMOTIVE REFINISH TECHNICIAN): Stressed importance of continued A1c control to minimize the supervisor cytology effects of diabetes. Bring accuchecks to office [...] of continued A1c control to minimize the supervisor cytology effects of diabetes. This includes but is [...] HYPERGLYCEMIA, WITH LONG-TERM CURRENT USE OF INSULIN ([facility]) (HCC) WRITTEN ON 07/14/2022 3:31 PM BY LOLY BALL PA Stressed importance of continued A1c control to minimize the prison effects of diabetes. Bring accuchecks to office [...] LONG-TERM INSULIN USE IN TYPE 2 DIABETES ([facility]) WRITTEN ON 07/14/2022 3:32 PM BY LOLY BALL PA Stressed importance of continued A1c control to minimize the prison effects of diabetes. Bring accuchecks to office [...] HYPERGLYCEMIA, WITH LONG-TERM CURRENT USE OF INSULIN ([facility]) ([facility]) WRITTEN ON 09/11/2021 10:20 AM BY LOLY BALL PA Stressed importance of continued A1c control to minimize the supervisor cytology effects of diabetes. Bring accuchecks to office [...] LONG-TERM INSULIN USE IN TYPE 2 DIABETES ([facility]) WRITTEN ON 09/11/2021 10:21 AM BY LOLY BALL PA Continue with insulin for tighter diabetes control Assessment & Plan (07/17/2021 9:33 PM CDT): Stressed importance of continued A1c control to minimize the prison effects of diabetes. Bring accuchecks to office [...] HYPERGLYCEMIA, WITH LONG-TERM CURRENT USE OF INSULIN ([facility]) ([facility]) WRITTEN ON 05/28/2021 9:40 PM BY LOLY BALL PA Stressed importance of continued A1c control to minimize the supervisor cytology effects of diabetes. Bring accuchecks to office [...] LONG-TERM INSULIN USE IN TYPE 2 DIABETES ([facility]) WRITTEN ON 05/28/2021 9:41 PM BY LOLY BALL PA Stressed importance of continued A1c control to minimize the supervisor cytology effects of diabetes. Bring accuchecks to office when instructed to do so. Check A1c about every 3-6 months. Take medication as prescribed. Get annual eye exam. Encouraged SHUKRI/Statin if able to tolerate. Encouraged weight control and encouraged diabetic diet and exercise. Assessment & Plan (11/13/2023 11:13 AM CDT): >>ASSESSMENT AND PLAN FOR UNCONTROLLED DIABETES MELLITUS WITH HYPERGLYCEMIA, WITH LONG-TERM CURRENT USE OF INSULIN ([facility]) ([facility]) WRITTEN ON 01/15/2021 8:16 PM BY LOLY BALL PA Stressed importance of continued A1c control to minimize the supervisor cytology effects of diabetes. Bring accuchecks to office [...] LONG-TERM INSULIN USE IN TYPE 2 DIABETES ([facility]) WRITTEN ON 01/15/2021 8:17 PM BY LOLY BALL PA Continue insulin for diabetes control Assessment & Plan (11/13/2023 11:13 AM CDT): >>ASSESSMENT AND PLAN FOR UNCONTROLLED DIABETES MELLITUS WITH HYPERGLYCEMIA, WITH LONG-TERM CURRENT USE OF INSULIN ([facility]) ([facility]) WRITTEN ON 11/14/2020 8:20 PM BY LOLY BALL PA Stressed importance of continued A1c control to minimize the supervisor cytology effects of diabetes. Bring accuchecks to office [...] LONG-TERM INSULIN USE IN TYPE 2 DIABETES ([facility]) WRITTEN ON 11/14/2020 8:20 PM BY LOLY BALL PA Continue insulin Assessment & Plan (11/13/2023 11:13 AM CDT): >>ASSESSMENT AND PLAN FOR UNCONTROLLED DIABETES MELLITUS WITH HYPERGLYCEMIA, WITH LONG-TERM CURRENT USE OF INSULIN ([facility]) ([facility]) WRITTEN ON 08/09/2020 5:05 PM BY LOLY BALL PA Stressed importance of continued A1c control to minimize the prison effects of diabetes. Bring accuchecks to office [...] LONG-TERM INSULIN USE IN TYPE 2 DIABETES ([facility]) WRITTEN ON 08/09/2020 5:03 PM BY LOLY BALL PA Continue insulin Assessment & Plan (11/13/2023 11:13 AM CDT): >>ASSESSMENT AND PLAN FOR UNCONTROLLED DIABETES MELLITUS WITH HYPERGLYCEMIA, WITH LONG-TERM CURRENT USE OF INSULIN ([facility]) ([facility]) WRITTEN ON 05/01/2020 3:12 PM BY LOLY BALL PA Stressed importance of continued A1c control to minimize the supervisor cytology effects of diabetes. Bring accuchecks to office [...] LONG-TERM INSULIN USE IN TYPE 2 DIABETES ([facility]) WRITTEN ON 05/01/2020 3:13 PM BY LOLY BALL PA Monitor closely as increased GLP dose Assessment & Plan (11/13/2023 11:13 AM CDT): >>ASSESSMENT AND PLAN FOR UNCONTROLLED DIABETES MELLITUS WITH HYPERGLYCEMIA, WITH LONG-TERM CURRENT USE OF INSULIN ([facility]) ([facility]) WRITTEN ON 03/25/2020 12:18 AM BY LOLY BALL PA Stressed importance of continued A1c control to minimize the prison effects of diabetes. Bring accuchecks to office [...] LONG-TERM INSULIN USE IN TYPE 2 DIABETES ([facility]) WRITTEN ON 03/25/2020 12:19 AM BY LOLY BALL PA Advised to monitor as may need to decrease insulin use with addition of Ozempic. Reviwed plan for reduction if reading come down quickly. Assessment & Plan (11/13/2023 11:13 AM CDT): >>ASSESSMENT AND PLAN FOR UNCONTROLLED DIABETES MELLITUS WITH HYPERGLYCEMIA, WITH LONG-TERM CURRENT USE OF INSULIN ([facility]) ([facility]) WRITTEN ON 01/10/2020 10:20 AM BY LOLY BALL PA Stressed importance of continued A1c control to minimize the supervisor cytology effects of diabetes. Bring accuchecks to office [...] LONG-TERM INSULIN USE IN TYPE 2 DIABETES ([facility]) WRITTEN ON 01/10/2020 10:19 AM BY LOLY BALL PA Continue insulin for DM control Assessment & Plan (11/08/2019 2:56 PM CDT): Stressed importance of continued A1c control to minimize the prison effects of diabetes. Bring accuchecks to office when instructed to do so. Check A1c about every 3-6 months. Take medication as prescribed. Get annual eye exam. Encouraged SHUKRI/Statin if able to tolerate. Encouraged weight control and encouraged diabetic diet and exercise. Refer to DM educator at [facility] to kick start her taking care of herself again. Assessment & Plan (09/21/2019 7:51 PM CDT): Stressed importance of continued A1c control to minimize the prison effects of diabetes. Bring accuchecks to office [...] HYPERGLYCEMIA, WITH LONG-TERM CURRENT USE OF INSULIN ([facility]) ([facility]) WRITTEN ON 12/31/2018 10:01 PM BY LOLY BALL PA Stressed importance of continued A1c control to minimize the prison effects of diabetes. Bring accuchecks to office [...] LONG-TERM INSULIN USE IN TYPE 2 DIABETES ([facility]) WRITTEN ON 12/31/2018 10:01 PM BY LOLY BALL PA See changes to insulin plan Assessment & Plan (11/13/2023 11:13 AM CDT): >>ASSESSMENT AND PLAN FOR UNCONTROLLED DIABETES MELLITUS WITH HYPERGLYCEMIA, WITH LONG-TERM CURRENT USE OF INSULIN ([facility] ([facility]) WRITTEN ON 09/10/2018 9:55 PM BY LOLY BALL PA Stressed importance of continued A1c control to minimize the prison effects of diabetes. Bring accuchecks to office when instructed to do so. Check A1c about every 3-6 months. Take medication as prescribed. Get annual eye exam. Encouraged SHUKRI/Statin if able to tolerate. Encouraged weight control and encouraged diabetic diet and exercise. Better control. Continue current plan >>ASSESSMENT AND PLAN FOR LONG-TERM INSULIN USE IN TYPE 2 DIABETES ([facility]) WRITTEN ON 09/10/2018 9:56 PM BY LOLY BALL PA Stressed importance of continued A1c control to minimize the supervisor cytology effects of diabetes. Bring accuchecks to office when instructed to do so. Check A1c about every 3-6 months. Take medication as prescribed. Get annual eye exam. Encouraged SHUKRI/Statin if able to tolerate. Encouraged weight control and encouraged diabetic diet and exercise. Assessment & Plan (11/13/2023 11:13 AM CDT): >>ASSESSMENT AND PLAN FOR UNCONTROLLED DIABETES MELLITUS WITH HYPERGLYCEMIA, WITH LONG-TERM CURRENT USE OF INSULIN ([facility] ([facility]) WRITTEN ON 08/01/2018 8:58 AM BY LOLY BALL, JEFF Stressed importance of continued A1c control to minimize the supervisor cytology effects of diabetes. Bring accuchecks to office [...] LONG-TERM INSULIN USE IN TYPE 2 DIABETES ([facility]) WRITTEN ON 08/01/2018 8:58 AM BY LOLY BALL PA See DM Type 2 diabetes mellitus with hyperlipidemia ( [facility]) 08/01/2018 Assessment & Plan (04/27/2024 11:09 PM AUTOMOTIVE REFINISH TECHNICIAN): Stressed importance of continued A1c control to minimize the prison effects of diabetes. Bring accuchecks to office [...] management. Assessment & Plan (02/20/2024 2:00 PM AUTOMOTIVE REFINISH TECHNICIAN): This is a chronic condition which is [...] 41 Assessment & Plan (06/02/2023 4:54 PM AUTOMOTIVE REFINISH TECHNICIAN): Stressed importance of continued A1c control to minimize the prison effects of diabetes. Bring accuchecks to office [...] 41 Assessment & Plan (01/28/2023 11:09 PM AUTOMOTIVE REFINISH TECHNICIAN): Stressed importance of continued A1c control to minimize the supervisor cytology effects of diabetes. Bring accuchecks to office [...] of continued A1c control to minimize the prison effects of diabetes. Bring accuchecks to office [...] statin Assessment & Plan (05/28/2021 9:41 PM AUTOMOTIVE REFINISH TECHNICIAN): Encouraged patient to follow fat/low chol diet [...] statin Assessment & Plan (05/01/2020 3:12 PM AUTOMOTIVE REFINISH TECHNICIAN): Encouraged patient to follow fat/low chol diet like the Mediterranean diet. Increase good fats in the diet. Increase exercise. Monitor labs as needed. \ Assessment & Plan (03/25/2020 12:19 AM AUTOMOTIVE REFINISH TECHNICIAN): Encouraged patient to follow fat/low chol diet like the Mediterranean diet. Increase good fats in the diet. Increase exercise. Monitor labs as needed. Continue statin Assessment & Plan (02/23/2020 7:50 AM AUTOMOTIVE REFINISH TECHNICIAN): Continue the Ozempic. Recheck labs in mid March and apr to reassess. Stressed importance of continued A1c control to minimize the prison effects of diabetes. Bring accuchecks to office [...] needed. Assessment & Plan (05/03/2019 11:30 PM AUTOMOTIVE REFINISH TECHNICIAN): Encouraged patient to continue low fat/low chol [...] 08/01/2018 Assessment & Plan (04/27/2024 11:08 PM AUTOMOTIVE REFINISH TECHNICIAN): Continue Zoloft 100 mg daily Assessment & Plan (07/22/2023 8:52 PM CDT): Continue Zoloft 100. Continue counseling and encouraged to be on a consistent basis Assessment & Plan (06/02/2023 4:55 PM AUTOMOTIVE REFINISH TECHNICIAN): Continue Zoloft 100. Encouraged counseling Assessment & [...] basis Assessment & Plan (05/28/2021 9:42 PM AUTOMOTIVE REFINISH TECHNICIAN): Continue per psychiatrist Assessment & Plan (01/15/2021 8:17 PM CDT): Patient is stable currently with her Zoloft. She would like to continue the same dose at this point. If her symptoms increase may consider transition away to another product. Assessment & Plan (11/14/2020 8:29 PM CDT): Continue zoloft Assessment & Plan (03/25/2020 12:20 AM AUTOMOTIVE REFINISH TECHNICIAN): Continue Zoloft and strongly encouraged to start counseling. Assessment & Plan (01/10/2020 10:20 AM CDT): Stable with the Zoloft Assessment & Plan (09/21/2019 7:52 PM CDT): Continue with psychiarist and counseling. Her mental health is impacting her physical concerns. Reviewed at [facility] she has been alcohol free for decades [...] 03/09/2024 Assessment & Plan (02/29/2024 7:23 AM AUTOMOTIVE REFINISH TECHNICIAN): Discussed the patient's BMI. The BMI is above average. BMI management plan is completed. BMI Follow-up includes: nutrition counseling, exercise counseling and education provided. Assessment & Plan (02/20/2024 2:02 PM AUTOMOTIVE REFINISH TECHNICIAN): This is a chronic condition which continues [...] and education provided. Annual physical exam 06/02/2023 04/21/2 024 Assessment & Plan (06/02/2023 5:01 PM AUTOMOTIVE REFINISH TECHNICIAN): Encouraged healthy lifestyle, good nutrition and exercise. Encouraged Calcium and Vitamin D and weight bearing exercise for bone health. Reviewed immunizations Reviewed age appropirate screenings. BMI 32.0-32.9,adult 05/23/2023 08/29/19 Assessment & Plan (07/22/2023 8:52 PM CDT): Discussed the patient's BMI. The BMI is above average. BMI management plan is completed. BMI Follow-up includes: nutrition counseling, exercise counseling and education provided. Assessment & Plan (06/02/2023 5:01 PM AUTOMOTIVE REFINISH TECHNICIAN): Discussed the patient's BMI. The BMI is above average. BMI management plan is completed. BMI Follow-up includes: nutrition counseling, exercise counseling and education provided. Tooth infection 01/28/2023 06/02/2023 Assessment & Plan (01/28/2023 11:09 PM AUTOMOTIVE REFINISH TECHNICIAN): Complete antibiotic and follow-up with dentist as [...] provided. Assessment & Plan (06/02/2023 4:55 PM AUTOMOTIVE REFINISH TECHNICIAN): Discussed the patient's BMI. The BMI is [...] 06/22/19 Assessment & Plan (04/30/2022 8:57 PM AUTOMOTIVE REFINISH TECHNICIAN): Discussed the patient's BMI. The BMI is above average. BMI management plan is completed. BMI Follow-up includes: nutrition counseling, exercise counseling and education provided. BMI 33.0-33.9,adult 01/23/2022 04/25/19 23 Assessment & Plan (01/23/2022 8:18 AM CDT): [...] 04/30/2022 Assessment & Plan (04/30/2022 8:57 PM AUTOMOTIVE REFINISH TECHNICIAN): Insert Obesity (BMI 30-39.9) 05/04/20212022 Assessment & Plan (04/30/2022 8:57 PM AUTOMOTIVE REFINISH TECHNICIAN): Discussed the patient's BMI. The BMI is [...] provided. Assessment & Plan (05/04/2021 9:37 AM AUTOMOTIVE REFINISH TECHNICIAN): Obesity is unchanged. Discussed the patient's BMI. The BMI is above average. BMI management plan is completed. BMI Follow-up includes: nutrition counseling, exercise counseling and education provided. BMI 31.0-31.9,adult 05/04/2021 01/24/20 22 Assessment & Plan (06/30/2021 10:53 AM CDT): Obesity is unchanged. Discussed the patient's BMI. The BMI is above average. BMI management plan is completed. BMI Follow-up includes: nutrition counseling, exercise counseling and education provided. Assessment & Plan (05/04/2021 9:37 AM AUTOMOTIVE REFINISH TECHNICIAN): Obesity is unchanged. Discussed the patient's BMI. The BMI is above average. BMI management plan is completed. BMI Follow-up includes: nutrition counseling, exercise counseling and education provided. Close exposure to COVID-19 virus 03/05/2021 08/31/2021 Assessment & Plan (03/05/2021 5:03 PM AUTOMOTIVE REFINISH TECHNICIAN): Patient to presume positive COVID until results are available and self isolate for 10 days from the onset of sxs. Check COVID test thru [facility] collection site in [place]. If positive, complete quarantine and consider monoclonal [...] water often. If needed, use a hand pipeline systems operator that contains at least 60% alcohol. Clean [...] 08/31/2021 Assessment & Plan (05/31/2020 9:10 AM AUTOMOTIVE REFINISH TECHNICIAN): The patient will be changing to [employer] insurance on 24 June 2020 Therefore, I will order a home sleep test and she should follow up here after that study is completed. She would like to consider an oral appliance if her sleep apnea is mild in severity. Daytime sleepiness 02/23/2020 Assessment & Plan (02/23/2020 7:49 AM AUTOMOTIVE REFINISH TECHNICIAN): Refer to sleep lab for further evaluation Annual physical exam 01/10/2020 020 Assessment & Plan (01/10/2020 10:21 AM CDT): Encouraged healthy lifestyle, good nutrition and exercise. Encouraged Calcium and Vitamin D and weight bearing exercise for bone health. Reviewed immunizations Reviewed age appropirate screenings. BMI 30.0-30.9,adult 01/08/2020 08/10/19 Assessment & Plan (05/01/2020 3:10 PM AUTOMOTIVE REFINISH TECHNICIAN): Obesity is improved. Discussed the patient's BMI. The BMI is above average. BMI management plan is completed. BMI Follow-up includes: nutrition counseling, exercise counseling and education provided. Assessment & Plan (03/25/2020 12:19 AM AUTOMOTIVE REFINISH TECHNICIAN): Obesity is unchanged. Discussed the patient's BMI. The BMI is above average. BMI management plan is completed. BMI Follow-up includes: nutrition counseling, exercise counseling and education provided. Assessment & Plan (02/23/2020 7:49 AM AUTOMOTIVE REFINISH TECHNICIAN): Obesity is unchanged. Discussed the patient's BMI. [...] agreement. Assessment & Plan (05/05/2019 11:37 AM AUTOMOTIVE REFINISH TECHNICIAN): Tylenol alternating with ibuprofen as directed as [...] 11/08/2019 Assessment & Plan (05/05/2019 11:37 AM AUTOMOTIVE REFINISH TECHNICIAN): Rapid strep and influenza test were both [...] water. Assessment & Plan (05/03/2019 11:27 PM AUTOMOTIVE REFINISH TECHNICIAN): Rapid strep positive. Will check throat culture. Multiple allergies. Was last treated with Levaquin. Will try Doxy. Assessment & Plan (04/01/2019 12:22 PM AUTOMOTIVE REFINISH TECHNICIAN): Reviewed with patient that strep was negative and most sore throats in adults are viral, so antibiotics don't help. Encouraged supportive therapy otc, cough drops, warm gargles with salt water. Assessment & Plan (03/13/2019 8:12 PM AUTOMOTIVE REFINISH TECHNICIAN): Positive strep in the office. Obesity (BMI 30-39.9) 03/13/20192020 Assessment & Plan (05/01/2020 3:09 PM AUTOMOTIVE REFINISH TECHNICIAN): Obesity is improved. Discussed the patient's BMI. The BMI is above average. BMI management plan is completed. BMI Follow-up includes: nutrition counseling, exercise counseling and education provided. Assessment & Plan (03/25/2020 12:17 AM AUTOMOTIVE REFINISH TECHNICIAN): Obesity is unchanged. Discussed the patient's BMI. The BMI is above average. BMI management plan is completed. BMI Follow-up includes: nutrition counseling, exercise counseling and education provided. Assessment & Plan (02/23/2020 7:45 AM AUTOMOTIVE REFINISH TECHNICIAN): Obesity is unchanged. Discussed the patient's BMI. [...] provided. Assessment & Plan (04/01/2019 12:19 PM AUTOMOTIVE REFINISH TECHNICIAN): Weight/BMI is in healthy range. Continue healthy lifestyle to maintain. Assessment & Plan (03/13/2019 8:16 PM AUTOMOTIVE REFINISH TECHNICIAN): Weight/BMI is in healthy range. Continue healthy lifestyle to maintain. Strep pharyngitis 03/13/2019 11/08/2019 Assessment & Plan (05/03/2019 11:29 PM AUTOMOTIVE REFINISH TECHNICIAN): See sore throat Assessment & Plan (03/13/2019 8:15 PM AUTOMOTIVE REFINISH TECHNICIAN): Positive strep. Antibiotic to pharmacy. With her multiple allergies, will chose levaquin to try to cover URI/UTI with one antibotic Reviewed ways to decrease spread/repeat infection. Followup if sxs worsen or don't resolve. BMI 30.0-30.9,adult 12/31/2018 03/13/20 19 Assessment & Plan (03/13/2019 1:39 PM AUTOMOTIVE REFINISH TECHNICIAN): BMI Follow-up includes: Discussed diet and exercising [...] 01/10/2020 Assessment & Plan (03/13/2019 8:12 PM AUTOMOTIVE REFINISH TECHNICIAN): UA with a little hematuria. Will choose antibiotic to cover both URI/UTI. Reviewed bladder care. Assessment & Plan (01/27/2019 4:06 PM AUTOMOTIVE REFINISH TECHNICIAN): Send urine for culture. Treat with Cipro [...] 09/10/201810/24 Assessment & Plan (04/01/2019 11:00 PM AUTOMOTIVE REFINISH TECHNICIAN): Mammogram order provided Assessment & Plan (12/31/2018 10:02 PM CDT): Mammogram order provided Assessment & Plan (09/10/2018 9:59 PM CDT): Mammogram order provided Other fatigue 09/10/2018 08/09/2020 Assessment & Plan (02/23/2020 7:49 AM AUTOMOTIVE REFINISH TECHNICIAN): Probably multifactorial. Check labs and followup to [...] 06/02/2023 Assessment & Plan (05/23/2023 7:49 AM AUTOMOTIVE REFINISH TECHNICIAN): Discussed the patient's BMI. The BMI is above average. BMI management plan is completed. BMI Follow-up includes: nutrition counseling, exercise counseling and education provided. Assessment & Plan (04/01/2019 12:20 PM AUTOMOTIVE REFINISH TECHNICIAN): Obesity is unchanged. Discussed the patient's BMI. [...] saboteurs; non-food rewards, etc). Primary hypertension 08/01/2018 024 Assessment & Plan (11/05/2022 6:40 PM CDT): Stressed importance of continued A1c control to minimize the prison effects of diabetes. Bring accuchecks to office [...] lisinopril Assessment & Plan (04/30/2022 8:57 PM AUTOMOTIVE REFINISH TECHNICIAN): Stressed importance of continued A1c control to minimize the supervisor cytology effects of diabetes. Bring accuchecks to office [...] 20 Assessment & Plan (05/28/2021 9:41 PM AUTOMOTIVE REFINISH TECHNICIAN): Bp is stable/in acceptable range for any [...] control. Assessment & Plan (05/01/2020 3:09 PM AUTOMOTIVE REFINISH TECHNICIAN): Bp is stable/in acceptable range for any co-morbidities. Encouraged to limit sodium intake and exercise for weight control. Continue lisinopril Assessment & Plan (03/25/2020 12:17 AM AUTOMOTIVE REFINISH TECHNICIAN): Bp is stable/in acceptable range for any co-morbidities. Encouraged to limit sodium intake and exercise for weight control. Take lisinopril as instructed Assessment & Plan (02/23/2020 7:44 AM AUTOMOTIVE REFINISH TECHNICIAN): Bp is stable/in acceptable range for any [...] and exercise for weight control. 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 Not on file Not on file Not on file Last Filed Vital Signs Vital Sign Reading Time Taken Comments Blood Pressure 126/68 06/16/2024 11:36 AM CDT Pulse 82 06/16/2024 11:36 AM CDT Temperature 36.6 C (97.8 F) 06/16/2024 11:36 AM CDT Respiratory Rate 16 04/09/2024 11:4 0 AM AUTOMOTIVE REFINISH TECHNICIAN Oxygen Saturation 96% 06/16/2024 11: 36 AM CDT Inhaled Oxygen Concentration - - Weight 91.5 kg (201 lb 12.8 oz) 025 12:05 PM CDT Height 170.2 cm (5' 7 ) 06/19/2024 12:0 5 PM CDT Body Mass Index 31.61 06/19/2024 12:05 PM CDT Plan of Treatment Not on file Medical Devices Implanted Type Area Pharmacy Services Director Device Identifier Shelf Expiration Date Model / Serial / Lot Cardiac Stent Implanted:Qty: 1 Heart [employer] Maxan 4mm 16mm Variable Angle Spine Screw Bone [id number] - [id number] Implanted:Qty: 4 on 04/07/2024 by Nolan Butler MD PhD at [facility] N/A: Spine Cervical [employer] [id number] / / [employer] Graft Bone Filler Scaffold Arthrocell Plus 1.0cc Abs-2089-03 - [id number] - [id number] Implanted:Qty: 1 on 04/07/2024 by Nolan Butler MD PhD at [facility] [employer] 06/27/2024 ABS- / [id number] / [employer] Graft Bone Filler Scaffold Arthrocell Plus 1.0cc -2089-03 - [id number] - [id number] Implanted:Qty: 1 on 04/07/2024 by Nolan Butler MD PhD at [facility] [employer] 06/20/2025 ABS- / [id number] / [employer] Graft Bone Filler Peptide Enhanced Syr I Factor 1cc Putty 700-010 - [id number] Implanted:Qty: 1 on 04/07/2024 by Nolan Butler MD PhD at [facility] [employer] [id number] 09/22/2026 700-01 0 / [id number] [employer] Cage Spinal Cervical 14d X 16w X 7h 6 Degree [id number] - [id number] Implanted:Qty: 1 on 04/07/2024 by Nolan Butler MD PhD at [facility] N/A: Spine Cervical [employer] [id number] 11/13/2028 [id number] / / [id number] [employer] Cage Spinal Cervical 14d X 16w X 7h 6 Degree [id number] - [id number] Implanted:Qty: 1 on 04/07/2024 by Nolan Butler MD PhD at [facility] N/A: Spine Cervical [employer] [id number] 11/13/2028 [id number] / / [id number] [employer] Cage Spinal Cervical 14d X 16w X 7h 6 Degree [id number] - [id number] Implanted:Qty: 1 on 04/07/2024 by Nolan Butler MD PhD at [facility] N/A: Spine Cervical [employer] [id number] 11/13/2028 [id number] / / [id number] [employer] Maxan 48mm Level 3 Spine Cervical Anterior Plate Bone Titanium [id number] - [id number] Implanted:Qty: 1 on 04/07/2024 by Nolan Butler MD PhD at [facility] N/A: Spine Cervical [employer] [id number] / / [employer] 4mm 16mm Fix Screw Bone [id number] - [id number] Implanted:Qty: 4 on 04/07/2024 by Nolan Butler MD PhD at [facility] N/A: Spine Cervical [employer] [id number] / / Procedures Procedure Name Priority Date/Time [...] Read Routine (OP Routine) 05/22/2024 10:26 AM AUTOMOTIVE REFINISH TECHNICIAN Neck pain POCT GLUCOSE DEVICE Routine 04/09/2024 11:48 AM AUTOMOTIVE REFINISH TECHNICIAN EGFR STAT 04/09/2024 9:47 AM AUTOMOTIVE REFINISH TECHNICIAN VANCOMYCIN LEVEL TROUGH STAT 04/09/2024 9:47 AM AUTOMOTIVE REFINISH TECHNICIAN CREATININE STAT 04/09/2024 9:47 AM AUTOMOTIVE REFINISH TECHNICIAN POCT GLUCOSE DEVICE Routine 04/09/2024 8 :17 AM AUTOMOTIVE REFINISH TECHNICIAN POCT GLUCOSE DEVICE Routine 04/08/2024 9 :18 PM AUTOMOTIVE REFINISH TECHNICIAN POCT GLUCOSE DEVICE Routine 04/08/2024 5 :10 PM AUTOMOTIVE REFINISH TECHNICIAN POCT GLUCOSE DEVICE Routine 04/08/2024 12:20 PM AUTOMOTIVE REFINISH TECHNICIAN POCT GLUCOSE DEVICE Routine 04/08/2024 8 :23 AM AUTOMOTIVE REFINISH TECHNICIAN POCT GLUCOSE DEVICE Routine 04/07/2024 10:11 PM AUTOMOTIVE REFINISH TECHNICIAN POCT GLUCOSE DEVICE Routine 04/07/2024 8 :23 PM AUTOMOTIVE REFINISH TECHNICIAN XR SPINE CERVICAL 2 OR 3 VIEWS IP Routine 04/07/2024 6:00 PM AUTOMOTIVE REFINISH TECHNICIAN POCT GLUCOSE DEVICE Routine 04/07/2024 4 :51 PM AUTOMOTIVE REFINISH TECHNICIAN POCT GLUCOSE DEVICE Routine 04/07/2024 11:06 AM AUTOMOTIVE REFINISH TECHNICIAN FL FLUOROSCOPY < 1 HOUR IP Routine 04/07/2024 10:52 AM AUTOMOTIVE REFINISH TECHNICIAN POCT GLUCOSE DEVICE Routine 04/07/2024 10:09 AM AUTOMOTIVE REFINISH TECHNICIAN TN AN PROCEDURE PLACEHOLDER Routine 04/07/2024 8:21 AM AUTOMOTIVE REFINISH TECHNICIAN TN AN PROCEDURE PLACEHOLDER Routine 04/07/2024 8:20 AM AUTOMOTIVE REFINISH TECHNICIAN TN AN ELECTIVE ENDOTRACHEAL AIRWAY Routine 04/07/2024 8:20 AM AUTOMOTIVE REFINISH TECHNICIAN POCT GLUCOSE DEVICE Routine 04/07/2024 8 :02 AM AUTOMOTIVE REFINISH TECHNICIAN SPINAL CORD MONITORING 04/07/2024 7:33 AM AUTOMOTIVE REFINISH TECHNICIAN Cervical disc disorder with myelopathy of mid-cervical region FUSION CERVICAL ANTERIOR DISCECTOMY WITH INSTRUMENTATION 04/07/2024 7:33 AM AUTOMOTIVE REFINISH TECHNICIAN Cervical disc disorder with myelopathy of mid-cervical region TYPE AND SCREEN STAT 04/07/2024 7:07 AM AUTOMOTIVE REFINISH TECHNICIAN POCT GLUCOSE DEVICE Routine 04/07/2024 6 :29 AM AUTOMOTIVE REFINISH TECHNICIAN HM DIABETES EYE EXAM Routine 01/21/2024 1:35 PM [...] Loly AGUILAR LAB BLOOD ORDERABLES Final Result [facility] [id number] [place] [address] * Differential, auto (06/12/2024 3:29 PM CDT) Neutrophil abs 3.6 1.5 - 6.5 K/cumm Imm gran abs 0.0 0.0 - 0.1 K/cumm CERNER Lymphocyte abs 1.8 0.8 - 3.3 K/cumm CERNER Monocyte abs 0.4 0.2 - 0.8 K/cumm [facility] Eosinophil abs 0.1 0.0 - 0.5 K/cumm [facility] Basophil abs 0.0 0.0 - 0.1 K/cumm [facility] Neutrophil pct 60.9 % [facility] Comment: Interpretive Data Percent cell count reference ranges are not reported, since discordance with absolute values may lead to misinterpretation of CBC data. Current Interpretive Data was last revised on 2017. Imm gran pct 0.5 % [facility] Comment: Interpretive Data Percent cell count reference ranges are not reported, since discordance with absolute values may lead to misinterpretation of CBC data. Current Interpretive Data was last revised on 2017. Lymphocyte pct 29.8 % [facility] Comment: Interpretive Data Percent cell count reference ranges are not reported, since discordance with absolute values may lead to misinterpretation of CBC data. Current Interpretive Data was last revised on 2017. Monocyte pct 6.4 % [facility] Comment: Interpretive Data Percent cell count reference ranges are not reported, since discordance with absolute values may lead to misinterpretation of CBC data. Current Interpretive Data was last revised on 2017. Eosinophil pct 1.7 % [facility] Comment: Interpretive Data Percent cell count reference ranges are not reported, since discordance with absolute values may lead to misinterpretation of CBC data. Current Interpretive Data was last revised on 2017. Basophil pct 0.7 % [facility] Comment: Interpretive Data Percent cell count reference ranges are not reported, since discordance with absolute values may lead to misinterpretation of CBC data. Current Interpretive Data was last revised on 2017. Blood 06/12/2024 3:29 PM CDT 06/12/2024 9:01 PM CDT us Loly AGUILAR LAB BLOOD ORDERABLES Final Result [facility] [id number] [place] [address] * (ABNORMAL) CBC with auto differential (06/12/2024 3:29 PM CDT) WBC 5.9 3.8 - 9.9 K/cumm Hgb 14.0 11.9 - 15.5 g/dL [facility] Hct 43.9 35.6 - 45.5 % [facility] Plt 165 150 - 400 K/cumm [facility] MPV 9.7 9.1 - 12.3 fL [facility] RBC 5.03 3.90 - 5.20 M/cumm [facility] MCV 87.3 81.3 - 96.4 fL [facility] MCH 27.8 27.1 - 33.3 pg [facility] MCHC 31.9(L) 32.3 - 35.7 g/dL [facility] RDW CV 13.7 11.1 - 14.9 % [facility] RDW SD 43.2 35.7 - 48.1 fL [facility] NRBC abs 0.00 0.00 - 0.01 K/cumm [facility] Blood 06/12/2024 3:29 PM CDT 06/12/2024 9:01 PM CDT Loly AGUILAR LAB BLOOD ORDERABLES Final Result Performing Organization Address [facility] Co de Phone Number [facility] [id number] [facility] [place] [address] * (ABNORMAL) Albumin Creatinine Ratio, Urine (06/12/2024 3:29 PM CDT) Albumin Ur 75.2 mg/L Comment: Interpretive Data No reference range established. Current interpretive data was last revised 2018. Creatinine Ur 101.3 mg/dL [facility] Comment: Interpretive Data No reference range established. Current interpretive data was last revised 2018. Albumin Creatinine Ratio, Ur 74(H) 1 - 29 mg/g [facility] Urine 06/12/2024 3:29 PM CDT 06/12/2024 9:01 PM CDT Loly AGUILAR LAB URINE ORDERABLES Final Result Performing Organization Address City/[facility]/ZIP Co de Phone Number [facility]AKUB [facility] [id number] [place] [address] * TSH (06/12/2024 3:29 PM CDT) Thyroid Stimulating Hormone 3.41 0.30 - 4.20 mcIUnit/mL Blood 06/12/2024 3:29 PM CDT 06/12/2024 9:01 PM CDT Loly AGUILAR LAB BLOOD ORDERABLES Final Result Performing Organization Address [facility] de Phone Number [facility] [address] [place] [address] * (ABNORMAL) Hemoglobin A1c (06/12/2024 3:29 PM CDT) Pathologist [facility] Hgb A1C 6.8(H) 4.0 - 5.6 % Estimated Average Glucose 148 mg/dL [facility] Comment: The ADA recommends reporting an estimated Average Glucose (eAG) with all Hemoglobin A1c results using the equation derived from a study of 507 normal and diabetic adults. Minority populations were underrepresented and children were not included. (Diabetes Care 31:1763-4944, 2008). The eAG is not equivalent to a fasting glucose. Blood 06/12/2024 3:29 PM CDT 06/12/2024 9:01 PM CDT Loly AGUILAR LAB BLOOD ORDERABLES Final Result Performing Organization Address [facility] Co de Phone Number [facility] [id number] [place] [address] * (ABNORMAL) Lipid panel (06/12/2024 3:29 PM [...] on 2017. Triglycerides 159(H) <=149 mg/dL JAKUB Comment: Interpretive Data Ages < or = [...] on 2017. HDL 52 >=40 mg/dL JAKUB Comment: Interpretive Data Ages < or = [...] 2017. LDL, calculated 189(H) <=129 mg/dL JAKUB Comment: Interpretive Data Ages < or = 19 years Acceptable: <110 mg/dL Borderline high: 110-129 mg/dL High: >or= 130 mg/dL Ages > or = 20 years Optimal: <100 mg/dL Near optimal: 100-129 mg/dL Borderline high: 130-159 mg/dL High: >160 mg/dL Calculated using the [place] LDL-C estimating equation. This equation was implemented on 2023. Prior to this date LDL-C was estimated using the Friedewald equation. Literature References: 1. Expert Panel on Integrated Guidelines for Cardiovascular Health and Risk Reduction in Children and Adolescents. Pediatrics 2010;128:S213 2. NCEP Expert Panel. Circulation 2004;110:227 3. Bossman M et al. MAUREEN Cardiol. 2020 July 24;5(5):540-548. doi: 10.1001/[email or web address] Current Interpretive Data was last revised on 2023. Non-HDL Cholesterol 218 mg/dL CERNER CH Comment: Interpretive Data Ages < or = [...] last revised on 2017. Chol/HDL ratio 5 CERNER CH Blood 06/12/2024 3:29 PM CDT 06/12/2024 9:01 PM CDT us Loly AGUILAR LAB BLOOD ORDERABLES Final Result [facility] [id number] [place] [address] * (ABNORMAL) Comprehensive metabolic panel (06/12/2024 3:29 [...] Loly AGUILAR LAB BLOOD ORDERABLES Final Result [facility] [id number] [place] [address] * POCT hemoglobin A1c (06/03/2024 1:23 PM CDT) Hemoglobin A1C, POC 6.6 4.0 - 5.6 % Blood 06/03/2024 1:23 PM CDT Coco Zamudio NP POINT OF CARE TEST ORDERABLES F inal Result * POCT glucose (06/03/2024 1:23 PM CDT) Glucose Blood, POC 161 mg/dL Blood 06/03/2024 1:23 PM CDT Coco Zamudio NP POINT OF CARE TEST ORDERABLES F inal Result * XR Spine Cervical 2 or 3 Views (05/22/2024 10:26 AM AUTOMOTIVE REFINISH TECHNICIAN) Anatomical Region Laterality Modality Spine N/A Computed Radiogr aphy 05/22/2024 10:5 0 AM AUTOMOTIVE REFINISH TECHNICIAN Impressions 05/22/2024 10:50 AM AUTOMOTIVE REFINISH TECHNICIAN Unchanged anterior instrumented C4-C7 fusion in expected position. Electronically signed by: Usama Peres M.D. Narrative 05/22/2024 10:50 AM AUTOMOTIVE REFINISH TECHNICIAN XR SPINE CERVICAL 2 OR 3 VIEWS [...] position. Electronically signed by: Usama Peres M.D. us Nolan Butler MD PhD IMG XR PROCEDURES Final R esult * POCT glucose (04/09/2024 11:48 AM AUTOMOTIVE REFINISH TECHNICIAN) Glucose, POC 149 70 - 199 mg/dL Blood 04/09/2024 11:4 8 AM AUTOMOTIVE REFINISH TECHNICIAN 04/09/2024 11:48 AM AUTOMOTIVE REFINISH TECHNICIAN us Nolan Butler MD PhD LAB POCT ORDERABLES - DEV ICE Final Result [facility] [place] [address] * eGFR (04/09/2024 9:47 AM AUTOMOTIVE REFINISH TECHNICIAN) eGFR >90 >=60 mL/min/1. 73 m2 Comment: [...] last reviewed 2021. Blood 04/09/2024 9:47 AM AUTOMOTIVE REFINISH TECHNICIAN 04/09/2024 9:56 AM AUTOMOTIVE REFINISH TECHNICIAN Alex Nix NP LAB BLOOD ORDERABLES Final Result [facility] [place] [address] * Creatinine (04/09/2024 9:47 AM AUTOMOTIVE REFINISH TECHNICIAN) Creatinine 0.63 0.60 - 1.10 mg/dL Blood 04/09/2024 9:47 AM AUTOMOTIVE REFINISH TECHNICIAN 04/09/2024 9:56 AM AUTOMOTIVE REFINISH TECHNICIAN Narrative [facility] - 04/09/2024 10:22 AM AUTOMOTIVE REFINISH TECHNICIAN Before 0900 vanc Alex Nix NP LAB BLOOD ORDERABLES Final Result [place] [address] * (ABNORMAL) Vancomycin level trough Before 0900 vanc (04/09/2024 9:47 AM AUTOMOTIVE REFINISH TECHNICIAN) Vancomycin trough 7.9(L) 10.0 - 20.0 mcg/mL Blood 04/09/2024 9:47 AM AUTOMOTIVE REFINISH TECHNICIAN 04/09/2024 9:56 AM AUTOMOTIVE REFINISH TECHNICIAN Narrative [facility] - 04/09/2024 10:22 AM AUTOMOTIVE REFINISH TECHNICIAN Before 0900 vanc Alex Nix TEXTILE COLORIST FORMULATOR LAB BLOOD ORDERABLES Final Result Performing Organization Address City/[facility]/[place] [address] * POCT glucose (04/09/2024 8:17 AM AUTOMOTIVE REFINISH TECHNICIAN) Glucose, POC 174 70 - 199 mg/dL Blood 04/09/2024 8:17 AM AUTOMOTIVE REFINISH TECHNICIAN 04/09/2024 8:17 AM AUTOMOTIVE REFINISH TECHNICIAN Nolan Butler MD PhD LAB POCT ORDERABLES - DEV ICE Final Result Performing Organization Address [facility] [place] [address] * POCT glucose (04/08/2024 9:18 PM AUTOMOTIVE REFINISH TECHNICIAN) Glucose, POC 138 70 - 199 mg/dL Blood 04/08/2024 9:18 PM AUTOMOTIVE REFINISH TECHNICIAN 04/08/2024 9:18 PM AUTOMOTIVE REFINISH TECHNICIAN Nolan Butler MD PhD LAB POCT ORDERABLES - DEV ICE Final Result Performing Organization Address [facility] [place] [address] * POCT glucose (04/08/2024 5:10 PM AUTOMOTIVE REFINISH TECHNICIAN) Glucose, POC 140 70 - 199 mg/dL Blood 04/08/2024 5:10 PM AUTOMOTIVE REFINISH TECHNICIAN 04/08/2024 5:10 PM AUTOMOTIVE REFINISH TECHNICIAN us Nolan Butler MD PhD LAB POCT ORDERABLES - DEV ICE Final Result Performing Organization Address [facility] Co de Phone Number [facility] [employer] [facility] [employer] [place] [address] * POCT glucose (04/08/2024 12:20 PM AUTOMOTIVE REFINISH TECHNICIAN) Glucose, POC 166 70 - 199 mg/dL Blood 04/08/2024 12:2 0 PM AUTOMOTIVE REFINISH TECHNICIAN 04/08/2024 12:20 PM AUTOMOTIVE REFINISH TECHNICIAN us Nolan Butler MD PhD LAB POCT ORDERABLES - DEV ICE Final Result Performing Organization Address [facility] Co de Phone Number [facility] [employer] [place] [address] * POCT glucose (04/08/2024 8:23 AM AUTOMOTIVE REFINISH TECHNICIAN) Glucose, POC 157 70 - 199 mg/dL Blood 04/08/2024 8:23 AM AUTOMOTIVE REFINISH TECHNICIAN 04/08/2024 8:23 AM AUTOMOTIVE REFINISH TECHNICIAN us Nolan Butler MD PhD LAB POCT ORDERABLES - DEV ICE Final Result Performing Organization Address City/[facility] Co de Phone Number [facility] [employer] [employer] [place] [address] * POCT glucose (04/07/2024 10:11 PM AUTOMOTIVE REFINISH TECHNICIAN) Glucose, POC 131 70 - 199 mg/dL Blood 04/07/2024 10:1 1 PM AUTOMOTIVE REFINISH TECHNICIAN 04/07/2024 10:11 PM AUTOMOTIVE REFINISH TECHNICIAN Nolan Butler MD PhD LAB POCT ORDERABLES - DEV ICE Final Result Performing Organization Address City/[facility] Co de Phone Number [facility] [employer] [place] [address] * POCT glucose (04/07/2024 8:23 PM AUTOMOTIVE REFINISH TECHNICIAN) Glucose, POC 182 70 - 199 mg/dL Blood 04/07/2024 8:23 PM AUTOMOTIVE REFINISH TECHNICIAN 04/07/2024 8:23 PM AUTOMOTIVE REFINISH TECHNICIAN Nolan Butler MD PhD LAB POCT ORDERABLES - DEV ICE Final Result Performing Organization Address [facility] Co de Phone Number [facility] [place] [address] * XR Spine Cervical 2 or 3 Views (04/07/2024 6:00 PM AUTOMOTIVE REFINISH TECHNICIAN) Anatomical Region Laterality Modality Spine N/A Computed Radiogr aphy 04/08/2024 6:14 AM AUTOMOTIVE REFINISH TECHNICIAN Impressions 04/08/2024 6:14 AM AUTOMOTIVE REFINISH TECHNICIAN 1. Interval C4-C7 anterior cervical decompression and instrumented fusion Electronically signed by: Deshawn Issa MD, PHD Narrative 04/08/2024 6:14 AM AUTOMOTIVE REFINISH TECHNICIAN EXAMINATION: Cervical spine 2 or 3 views [...] * (ABNORMAL) POCT glucose (04/07/2024 4:51 PM AUTOMOTIVE REFINISH TECHNICIAN) Glucose, POC 205(H) 70 - 199 mg/dL Blood 04/07/2024 4:51 PM AUTOMOTIVE REFINISH TECHNICIAN 04/07/2024 4:51 PM AUTOMOTIVE REFINISH TECHNICIAN Result [facility] Nolan Butler MD PhD LAB POCT ORDERABLES - DEV ICE Final Result Performing Organization Address [facility] Co de Phone Number [facility] Department of [employer] [place] [address] * (ABNORMAL) POCT glucose (04/07/2024 11:06 AM AUTOMOTIVE REFINISH TECHNICIAN) Glucose, POC 205(H) 70 - 199 mg/dL Blood 04/07/2024 11:0 6 AM AUTOMOTIVE REFINISH TECHNICIAN 04/07/2024 11:06 AM AUTOMOTIVE REFINISH TECHNICIAN Result [facility] Nolan Butler MD PhD LAB POCT ORDERABLES - DEV ICE Final Result Performing Organization Address [facility] Co de Phone Number [facility] Department of [employer] [place] [address] * [place] Fluoroscopy < 1 Hour (04/07/2024 10:52 AM AUTOMOTIVE REFINISH TECHNICIAN) Narrative [facility] - 04/07/2024 10:52 AM AUTOMOTIVE REFINISH TECHNICIAN The images from this study are not interpreted by Radiology. Please refer to the physician's procedure / OR operative note. us Nolan Butler MD PhD IMG FLUOROSCOPY PROCEDURE S Final Result Performing Organization Address [facility] Co de Phone Number [facility] * POCT glucose (04/07/2024 10:09 AM AUTOMOTIVE REFINISH TECHNICIAN) Glucose, POC 160 70 - 199 mg/dL Blood 04/07/2024 10:0 9 AM AUTOMOTIVE REFINISH TECHNICIAN 04/07/2024 10:09 AM AUTOMOTIVE REFINISH TECHNICIAN Nolan Butler MD PhD LAB POCT ORDERABLES - DEV ICE Final Result [facility] [place] [address] * [place] AN PROCEDURE PLACEHOLDER (04/07/2024 8:21 AM AUTOMOTIVE REFINISH TECHNICIAN) Luba Ponce CRNA - 04/07/2024 8:21 AM AUTOMOTIVE REFINISH TECHNICIAN Luba Cantu CRNA 04/07/2024 8:22 AM Peripheral IV Catheter Patient location: OR Staff: Placed by: [place]: Luba Cantu CRNA Preprocedure prep: Prep solution: chlorhexadine PPE: gloves and provider hat/mask PIV line: Laterality: right Site: hand Catheter size: 18 g Technique: direct visualization Procedure details: good blood return Number of attempts: 1 Assessment: Events: patient tolerated procedure well with no complications Gerson Pink MD PhD ANESTHESIA ORDERABLES Fin al Result * [place] AN ELECTIVE ENDOTRACHEAL AIRWAY, [place] AN PROCEDURE PLACEHOLDER (04/07/2024 8:20 AM AUTOMOTIVE REFINISH TECHNICIAN) Luba Ponce CRNA - 04/07/2024 8:20 AM AUTOMOTIVE REFINISH TECHNICIAN Luba Cantu CRNA 04/07/2024 8:21 AM Airway [...] Result * POCT glucose (04/07/2024 8:02 AM AUTOMOTIVE REFINISH TECHNICIAN) Glucose, POC 151 70 - 199 mg/dL Blood 04/07/2024 8:02 AM AUTOMOTIVE REFINISH TECHNICIAN 04/07/2024 8:02 AM AUTOMOTIVE REFINISH TECHNICIAN us Nolan Butler MD PhD LAB POCT ORDERABLES - DEV ICE Final Result [facility] [place] [address] * Type and screen (04/07/2024 7:07 AM AUTOMOTIVE REFINISH TECHNICIAN) Isa, indirect Negative ABO Rh AB Positive [facility] Blood 04/07/2024 7:07 AM AUTOMOTIVE REFINISH TECHNICIAN 04/07/2024 7:28 AM AUTOMOTIVE REFINISH TECHNICIAN Narrative [facility] - 04/07/2024 8:09 AM AUTOMOTIVE REFINISH TECHNICIAN Has the patient had Daratumumab or Isatuximab in the past 6 months?->Unknown Zoe Lomas NP LAB BLOOD BANK TEST ORDE RABLES Final Result [facility] Department of [employer] [place] [address] * POCT glucose (04/07/2024 6:29 AM AUTOMOTIVE REFINISH TECHNICIAN) Glucose, POC 173 70 - 199 mg/dL Blood 04/07/2024 6:29 AM AUTOMOTIVE REFINISH TECHNICIAN 04/07/2024 6:29 AM AUTOMOTIVE REFINISH TECHNICIAN us Nolan Butler MD PhD LAB POCT ORDERABLES - DEV ICE Final Result [facility] [place] [address] * DIABETES EYE EXAM (01/21/2024 1:35 PM CDT) SCRIBED DIABETIC DILATED EYE EXAM Normal us Silvano Provider HEALTH MAINTENANCE Edited Result - Final * Screening Mammogram Bilateral W Oli (09/14/2023 9:43 AM CDT) Anatomical Region Laterality Modality Breast Bilateral Mammography Loly AGUILAR IMG MAMMO PROCEDURES Final Result * COLONOSCOPY (06/26/2017) us Guy Rodríguez MD HEALTH MAINTENANCE Edited Re sult - Final from Last 3 Months or Most Recently Relevant to Health Maintenance Insurance [facility] [employer] [facility] [place] PPO [facility] [employer] Advance Directives For more information, please contact: [phone] Documents on File Type Date Recorded Patient Manager Entry Expl anation ADVANCE DIRECTIVE 04/07/2024 6:07 AM Power of Education Program Coordinator-Medical * Full Code (Latest Code Status on File) Date Activated Date Inactivated Comments 04/07/2024 1:08 PM 04/09/2024 5:01 PM * Full Code Date Activated Date Inactivated Comments 06/13/2021 11:22 AM 06/13/2021 8:19 PM * Full Code Date Activated Date Inactivated Comments 01/23/2021 8:37 PM 01/24/2021 11:22 PM Care Teams Decorative Engraver Apprentice Relationship Specialty Start Date End Date Loly Ball PA [address] [facility] [address] [place] [address] PCP - General Internal Medicine 07/29/18 [place] [address] [facility] [address] [place] [address] Nurse Practitioner Renewals Specialist 03/06/24 Fiona Brandon MD [address] [place] [id number] Referring Physician Interventional Cardiology 04/01/24
== END 2024-06-20 14:49 | disposition home or self-care (01) ==
PROVIDERS: PCP Physician Assistant; Visit Provider Physician Assistant
DX: Z12.31 Encounter for screening mammogram for malignant neoplasm of breast (principal)
CPT/HCPCS: 77063; 77067

== ENCOUNTER 2025-02-05 16:50 | Emergency (ER) | payer OTHER, SELFPAY ==
--- NOTE | ~2025-02-05 | XR_ITS ---
XR foot RT min 3V INDICATION: stepped in hole. right 1-2 toes/metatarsal . COMPARISON: None. FINDINGS: Frontal, lateral and oblique views of the right foot were obtained. Fracture of the medial sesamoid. There is no dislocation. Degenerative changes with joint space narrowing. IMPRESSION: Fracture of the medial sesamoid. Reviewed, dictated and finalized at location S. SITTER
[2025-02-05 17:05] VITALS: BP 158/73; PULSE 80; RESP 16; TEMP 36.4; O2SAT 99
--- NOTE | 2025-02-05 17:05 | ED_ITS ---
HPI - Extremity Injury (Lower) General Chief Complaint: Extremity Injury, Lower Stated Complaint: INJURED R FOOT Source: patient and RN notes reviewed Mode of arrival: ambulatory Limitations: no limitations History of Present Illness HPI Narrative: Patient is a 64-year-old female who presents to the [facility] after a fall in a pothole that occurred just prior to arrival. Patient states that her right stepped in a hole, causing her to fall to her left side. She states that the landscape was mc, and caused multiple abrasions to patient's left lower leg and knee. She states that she is up-to-date on her tetanus. She has full range of motion of the left knee and leg. However, patient is complaining of right foot pain. She has notable swelling and bruising to the dorsal aspect of the foot. She has limited range of motion of the foot. She is neurovascularly intact. Sensation is intact. Related Data Home Medications ?Medication ?Instructions ?Recorded ?Confirmed ?Last Taken ?Type clopidogrel 75 mg tablet mg 02/05/25 Unknown History insulin degludec 200 unit/mL (3 unit subcut 02/05/25 Unknown History mL) subcutaneous pen (Tresiba FlexTouch U-200 insulin) insulin lispro 100 unit/mL subcut 02/05/25 Unknown Hi story subcutaneous pen sertraline 50 mg tablet mg 02/05/25 Unknown History tirzepatide 5 mg/0.5 mL mg subcut 02/05/25 Unknown History subcutaneous pen injector (Mounjaro) Allergies Allergy/AdvReac Type Severity Reaction Status Date / Time amoxicillin Allergy Severe Rash Verified 02/05/25 17:06 citalopram (From Celexa) Allergy Severe Rash Verified 02/05/25 17:06 Penicillins Allergy Unknown Rash Verified 02/05/25 17:06 Review of Systems Review of Systems: CONSTITUTIONAL: Denies fever, chills, or sweats. EYES: Denies visual changes, redness, or discharge. ENT: Denies otalgia and sore throat CARDIOVASCULAR: Denies chest pain, palpitations, or edema. RESPIRATORY: Denies cough or dyspnea. GASTROINTESTINAL: Denies abdominal pain, nausea, vomiting, or diarrhea. GENITOURINARY: Denies dysuria or hematuria. SKIN: Reports multiple abrasions to left lower leg and knee. MUSCULOSKELETAL: Reports right foot pain and swelling. NEUROLOGIC: Denies headache, numbness, or weakness. Pertinent positives per HPI. PMFSH Comments At the time of my signature, I reviewed and agree with the nursing past medical, surgical, social, and family history. There is no relevant family history pertinent to the patient complaint. Exam Narrative: GENERAL: This is a well-nourished, well-developed patient, in no apparent distress. HEAD: normocephalic, atraumatic. EYES: PERRL. Sclera clear/white. Vision is grossly intact. EARS: External ears normal, auditory canals clear and without drainage, TMs normal without perforation. Hearing grossly intact. NOSE: External nose normal with no obvious nasal discharge, nares without redness, no rhinorrhea. THROAT: Mucous membranes moist, posterior pharynx clear. NECK: Neck supple, non-tender without lymphadenopathy, masses or thyromegaly. CARDIOVASCULAR: Regular rate and rhythm without murmurs, gallops, or rubs. RESPIRATORY: Clear to auscultation. Breath sounds equal bilaterally. No wheezes, rales, or rhonchi. GASTROINTESTINAL: Abdomen soft, non-tender, nondistended. Bowel sounds are active. No hepato-splenomegaly, or palpable masses. No guarding. SKIN: Multiple abrasions to left lower leg and knee. NEURO: awake, alert, and oriented to person, place and time. There were no obvious focal neurologic abnormalities. EXTREMITIES: Right foot tenderness. Swelling and bruising noted to the dorsal aspect of the right foot. Neurovascular status intact. Sensation intact. Cap refill is normal. BACK: Nontender without deformity or crepitance. No flank tenderness. Course Course Level of Care: Express Care Visit Vital Signs Vital signs: Vital Signs Temperature 97.5 F L 02/05/25 17:05 Pulse Rate 80 02/05/25 17:05 Respiratory Rate 16 02/05/25 17:05 Blood Pressure 158/73 H 02/05/25 17:05 Pulse Oximetry 99 02/05/25 17:05 Temperature 97.5 F L 02/05/25 17:05 Pulse Rate 80 02/05/25 17:05 Respiratory Rate 16 02/05/25 17:05 Blood Pressure 158/73 H 02/05/25 17:05 Pulse Oximetry 99 02/05/25 17:05 Reviewed Procedures Orthopedic Splinting/Casting Injury #1: Splinting/Casting Date: 02/05/25 Splinting/Casting Time: 17:36 Side: right Lower Extremity Injury Location: foot Lower Extremity Immobilizer: post-op shoe and Phuc wrap Splint: prefabricated Pre-Formed: post op shoe Pre-Procedure Neuro Vascular Exam: normal Post-Procedure Neuro Vascular Exam: normal Other Orthopedic Equipment: walker MDM - Extremity Injury (Lower) MDM Narrative Medical decision making narrative: Wounds to the left lower leg and knee were thoroughly cleaned and dressed at the [facility]. X-ray reveals sesamoid fracture. Patient was provided postop shoe and walker. Advised to follow up with orthopedist. Differential Diagnosis Differential diagnosis: Likely acute internal derangement of knee and other (foot fracture, foot sprain) Imaging Data Attestation: I personally reviewed and interpreted this imaging study as follows: Radiologist's impression: [address] [place] [address] XRay Report Signed Patient: Niik Moreno : 1960 MR#: [id number] Age: 64 Acct:[id number] Loc: [facility] ADM Date: 02/05/[address]: Ordering Physician: Milena Castano APRN Date of Service: 02/05/25 Procedure(s): XR foot RT min 3V Accession Number(s): [id number] cc: Milena Castano APRN; Lizzy, Talia MARTINEZ~ XR foot RT min 3V INDICATION: stepped in hole. right 1-2 toes/metatarsal . COMPARISON: None. FINDINGS: Frontal, lateral and oblique views of the right foot were obtained. Fracture of the medial sesamoid. There is no dislocation. Degenerative changes with joint space narrowing. IMPRESSION: Fracture of the medial sesamoid. Reviewed, dictated and finalized at location S. TING EQUIPMENT OPERATOR Please be advised this is a medical document. It is intended for [id number] communication. It is written in medical language and may contain unfamiliar abbreviations or verbiage. Medical documents are intended to carry relevant information, facts as evident, and the clinical opinion of the practitioner at the time of the encounter. This report may have been done utilizing a voice recognition system. Attempts have been made to correct errors. However, there may be uncorrected grammatical, spelling, and recognition errors present. The file time of this note does not necessarily represent the time of service. Dictated By: Francis Ambrosio MD 02/05/25 172 Signed By: <Electronically signed by Francis Ambrosio MD in OV> 02/05/25 1726 Critical Care Time Critical Care Time Critical Care Time: No Discharge Plan Discharge Clinical Impression: Fracture of sesamoid bone of foot, closed Qualifiers: Encounter type: initial encounter Laterality: right Qualified Code(s): S92.811A - Other fracture of right foot, initial encounter for closed fracture Abrasion of left leg Qualifiers: Encounter type: initial encounter Qualified Code(s): S80.812A - Abrasion, left lower leg, initial encounter Patient Disposition: Home Condition: Stable Instructions: Foot Fracture in Adults (ED), P.R.I.C.E. Treatment (ED) Additional Instructions: Use the RICE method at home. May take ibuprofen and/or Tylenol if needed. Follow-up with orthopedist. Patient Language: Malagasy Prescriptions: No Action clopidogrel 75 mg tablet sertraline 50 mg tablet insulin lispro 100 unit/mL insulin pen SUBCUT insulin degludec [Tresiba FlexTouch U-200] 200 unit/mL (3 mL) insulin pen SUBCUT Mounjaro 5 mg/0.5 mL pen injector SUBCUT Follow-up/Referrals: Vijay Davis MD [Physician, Orthopedics] Lizzy,JEFF Melgar [Primary Care Provider, Unknown] Time of Disposition: 17:37
== END 2025-02-05 17:48 | disposition home or self-care (01) ==
PROVIDERS: Emergency Provider Nurse Practitioner; PCP Physician Assistant
DX: S92.811A Other fracture of right foot, initial encounter for closed fracture (principal); W17.2XXA Fall into hole, initial encounter; S80.812A Abrasion, left lower leg, initial encounter; E11.9 Type 2 diabetes mellitus without complications; Z79.4 Long term (current) use of insulin; Z79.85 Long-term (current) use of injectable non-insulin antidiabetic drugs; Z95.5 Presence of coronary angioplasty implant and graft
CPT/HCPCS: 73630; 99204; G0463